=== PATIENT | female | born 1940 | race Caucasian/White ===

== ENCOUNTER 2018-08-14 10:33 | Observation (INO) ==
[2018-08-14] MEDS ORDERED: 0.9 % Sodium Chloride 1,000 ML IVC ONE (10:48)
--- NOTE | 2018-08-14 11:07 | Emergency Department Note ---
START Narrative - START START: Patient with history of a atriafibrillation presents from her primary care provider's office for evaluation of generalized weakness. Patient states that she went to see her primary care provider today for a follow-up regarding bilateral foot edema bilateral foot, ankle and knee pain. When she arrived there she was too weak to get out of her vehicle without assistance. Her primary care provider was concerned about this change in her overall well-being and sent her here for further evaluation. Patient denies any specific pain at this time, but states that she has had pain in her ankles and knees for years. She also complains of an occasional cough and generalized malaise for the past two weeks. Her EKG shows atrial fibrillation with no ST elevation or depression. Old EKG has been requested. Labs have been ordered. Case was discussed with the oncoming provider, Dr. Erasmo Bell. She will be taking over care of this patient.
[2018-08-14 11:37] LABS: Basophils # 0.1 K/mcL (0.0-0.2); Basophils % 0.4 %; Eosinophils # 0.1 K/mcL (0.0-0.6); Eosinophils % 0.4 %; Hematocrit 35.5 % (35.3-44.9); Hemoglobin 11.1 g/dL (11.5-15.4); Immature Granulocytes % 0.4 % (0-4); Lymphocytes # 2.1 K/mcL (0.6-4.6); Mean Corpuscular HGB Conc 31.3 g/dL (31.6-35.5); Mean Corpuscular Hemoglobin 27.2 pg (28.0-33.3); Mean Platelet Volume 10.6 fL (9.4-12.4); Monocytes # 0.9 K/mcL (0.0-1.3); Monocytes % 6.6 %; Neutrophils # 10.8 K/mcL (1.6-8.9); Platelet Count 362 K/mcL (140-400); Red Blood Count 4.08 M/mcL (3.82-4.97); Red Cell Distribution Width 14.6 % (11.5-14.5); Segmented Neutrophils % 77.2 %
[2018-08-14 11:53] LABS: Troponin I < 0.03 ng/mL (< 0.04)
[2018-08-14 12:06] LABS: Alanine Aminotransferase 27 Units/L (7-52); Albumin 3.8 g/dL (3.5-5.7); Alkaline Phosphatase 90 Units/L (34-104); Aspartate Amino Transferase 27 Units/L (13-39); BUN/Creatinine Ratio 15 (6-26); Bilirubin,Total 0.4 mg/dL (0.3-1.0); Blood Urea Nitrogen 22 mg/dL (8-23); Calcium 9.7 mg/dL (8.6-10.3); Carbon Dioxide 25 mEq/L (23-29); Chloride 102 mEq/L (98-107); Globulin 3.8 g/dL (2.4-3.5); Glucose 118 mg/dL (70-105); Osmolality,Calculated 292 (280-300); Sodium 139 mEq/L (136-145); Total Protein 7.6 g/dL (6.4-8.9); eGFR For Non-African Americans 36 (> 60)
[2018-08-14 12:19] LABS: INR 2.1
[2018-08-14 12:55] LABS: Bilirubin,Urine Negative (Negative); Blood,Urine Negative (Negative); Clarity,Urine Clear (Clear); Color,Urine Yellow (Yellow); Glucose,Urine (UA) Normal (Normal); Ketones,Urine Negative (Negative); Leukocyte Esterase,Urine Negative (Negative); Nitrite,Urine Positive (Negative); Protein,Urine Negative (Neg-Trace); Specific Gravity,Urine 1.023 (1.010-1.025); Urobilinogen,Urine Normal (Normal)
[2018-08-14 12:57] LABS: Bacteria,Urine Many per hpf (None-Few); Hyaline Casts,Urine None Seen per lpf (None-Few); RBC,Urine 0-3 per hpf (0-3); Squamous Epithelial Cell,Urine Many per lpf (None-Few); WBC,Urine 0-3 per hpf (0-3)
--- NOTE | 2018-08-14 13:20 | Emergency Department Note ---
Disposition Clinical Impression: Unable to ambulate, Generalized weakness UTI (urinary tract infection) Qualifiers: Urinary tract infection type: site unspecified Hematuria presence: without hematuria Qualified Code(s): N39.0 - Urinary tract infection, site not specified Disposition: Admitted As Inpatient Condition: Fair General Adult HPI - General Chief complaint: ED General Medical Stated complaint: Weakness Time Seen by Provider: 08/14/18 10:43 Source: patient, EMS Mode of arrival: EMS Limitations: no limitations Nursing Notes Reviewed: Yes Vital Signs Reviewed: Yes - History of Present Illness HPI Narrative: 77-year-old female with significant past medical history of chronic kidney disease and atrial fibrillation currently on Coumadin presenting to the emergency department with chief complaint of weakness. According to the patient she does have chronic low back pain. She was following up with her primary care physician today due to increased weakness in her bilateral extremities. They became concerned and told her to come to the emergency department. Patient states over the past few weeks she has had increasing pain in her bilateral lower extremities and increased pain in her left low back. This is causing her to be unable to ambulate. Patient denies any fevers, chest pain or shortness of breath. She does states she has had an increased productive cough over the past few weeks. Patient is normally able to ambulate with some help at home but now has been unable to get up to even use the restroom due to her weakness. Pain Scale: 3 - Related Data Home Medications Medication Instructions Recorded Confirmed Atorvastatin Calcium [Lipitor] 20 mg PO DAILY 08/14/18 08/14/18 Cholecalciferol (D-3) [Vitamin D] 1,000 unit PO DAILY 08/14/18 08/14/18 Diphenhydramine HCl [Ez Nite Sleep] 50 mg PO HS 08/14/18 08/14/18 Furosemide [Lasix] 40 mg PO DAILY 08/14/18 08/14/18 Irbesartan [Avapro] 150 mg PO DAILY 08/14/18 08/14/18 Metoprolol Tartrate [Lopressor] 50 mg PO BID 08/14/18 08/14/18 Multivitamin [One Daily 1 each PO DAILY 08/14/18 08/14/18 Multivitamin] Potassium Chloride [K-Tab ER] 10 meq PO DAILY 08/14/18 08/14/18 Sennosides/Docusate Sodium 2 tab PO QPM 08/14/18 08/14/18 [Senna-S Tablet] Warfarin [Coumadin] 2.5 mg PO DAILY 08/14/18 08/14/18 Allergies Allergy/AdvReac Type Severity Reaction Status Date / Time [place] Inhibitors Allergy Hypotension Verified 08/14/18 10:50 aspirin [ASA] Allergy See Verified 08/14/18 10:50 Comments methyldopa Allergy Hives Verified 08/14/18 10:50 Triamterene Allergy Chills Verified 08/14/18 10:50 amlodipine AdvReac Swelling Verified 08/14/18 10:50 of Lip/Tongue/Throat atenolol AdvReac Palpitation Verified 08/14/18 10:50 s cefdinir AdvReac Dizziness Verified 08/14/18 10:50 clarithromycin AdvReac Hives Verified 08/14/18 10:50 duloxetine AdvReac See Verified 08/14/18 10:50 Comments enalapril AdvReac Hypotension Verified 08/14/18 10:50 guaifenesin AdvReac Hives Verified 08/14/18 10:50 indapamide AdvReac Hives Verified 08/14/18 14:20 losartan AdvReac Itching Verified 08/14/18 10:50 nifedipine AdvReac Hives Verified 08/14/18 10:50 NSAIDS (Non-Steroidal AdvReac See Verified 08/14/18 14:20 Anti-Inflamma Comments pregabalin [From Lyrica] AdvReac See Verified 08/14/18 10:50 Comments tramadol AdvReac See Verified 08/14/18 10:50 Comments All systems ED: reviewed and negative except as stated. Constitutional: Reports: weakness. Denies: fever, chills Eyes: Reports: as per HPI ENT ED: Reports: as per HPI Cardiovascular: Denies: chest pain, palpitations, dyspnea on exertion Respiratory: Reports: cough, sputum production. Denies: dyspnea, wheezes Gastrointestinal: Reports: as per HPI Genitourinary: Reports: as per HPI Musculoskeletal: Reports: as per HPI Integumentary: Reports: as per HPI Neurological: Reports: weakness. Denies: numbness, paresthesias Psychiatric: Reports: as per HPI Endocrine: Reports: as per HPI Hematological/Lymphatic: Reports: as per HPI Allergic/Immunologic: Reports: as per HPI Past Medical History - Past Medical History Attestation: Yes The following information was validated with the patient. Medical history: Reports: atrial fibrillation, hyperlipidemia, hypertension Psychiatric history: Reports: no psych history - Social History Smoking Status: Never smoker Smokeless Tobacco Status: No Alcohol use: Reports: none Drug use: Reports: none Physical Exam - General Limitations: no limitations General appearance: alert, in no apparent distress - Head Head exam: atraumatic, normocephalic, normal inspection - Eye Eye exam: Present: normal appearance. Absent: scleral icterus, conjunctival injection - ENT ENT exam: mucous membranes dry - Neck Neck exam: Present: normal inspection, full ROM. Absent: tenderness, meningismus - Chest Chest inspection: Present: normal inspection, symmetric chest wall rise. Absent : tenderness, rash - Respiratory Respiratory exam: Present: normal lung sounds bilaterally. Absent: respiratory distress, wheezes - Cardiovascular Cardiovascular exam: Present: regular rate, irregular rhythm, normal heart sounds - Abdominal Exam Abdominal exam: Present: soft. Absent: distention, guarding, rebound - Extremities Exam Extremities exam: Present: full ROM - Neurological Exam Neurological exam: Present: alert, oriented X3 - Psychiatric Psychiatric exam: Present: normal affect, normal mood - Skin Skin exam: Present: warm, intact Course Course Narrative: 77-year-old female presenting to the emergency department with chief complaint of weakness. On exam patient is able to move all 4 extremities without difficulty. She is alert and oriented 3 with stable vital signs. Her physical exam shows tenderness to the left SI joint, and irregular heart rate but otherwise benign. Patient does state over the past couple of days she has had a few loose stools but there has been no blood in this. Due to patient's new onset weakness we will work her up with basic laboratory analysis, troponin , EKG, CT of the abdomen and pelvis along with a urinalysis. Disposition most likely admission due to patient's inability to ambulate but pending results. Patient agrees with this plan. at bedside. - Reevaluation(s) Reevaluation #1: Patient's laboratory analysis shows leukocytosis any urinary tract infection. This is the most likely cause of the patient's weakness. Patient remains alert and oriented 3 in room with stable vital signs. We will start the patient on Rocephin and plan to admit her for further IV antibiotics. Patient agrees with this plan. I spoke with the hospitalist on-call who agrees to accept the patient at this time. Vital Signs Temperature 98.9 F 08/14/18 10:37 Pulse Rate 63 08/14/18 10:37 Respiratory Rate 18 08/14/18 10:37 Blood Pressure 161/98 08/14/18 10:37 O2 Sat by Pulse Oximetry 96 08/14/18 10:37 Temperature 98.9 F 08/14/18 10:37 Pulse Rate 100 08/14/18 14:05 Respiratory Rate 18 08/14/18 15:28 Blood Pressure 162/76 08/14/18 15:28 O2 Sat by Pulse Oximetry 97 08/14/18 16:30 Oxygen Delivery Oxygen Delivery Room Air Medical Decision Making - Lab Data Result diagrams: 08/14/18 10:49 08/14/18 10:49 Lab Results 08/14/18 08/14/18 08/14/18 Range/Units 10:49 10:49 11:16 WBC 14.0 H (4.3-11.1) K/mcL RBC 4.08 (3.82-4.97) M/mcL Hgb 11.1 L (11.5-15.4) g/dL Hct 35.5 (35.3-44.9) % MCV 87.0 (83.0-100.0) fL MCH 27.2 L (28.0-33.3) pg MCHC 31.3 L (31.6-35.5) g/dL RDW 14.6 H (11.5-14.5) % Plt Count 362 (140-400) K/mcL MPV 10.6 (9.4-12.4) fL Immature Gran % 0.4 (0-4) % Seg Neutrophils % 77.2 % Lymphocytes % 15.0 % Monocytes % 6.6 % Eosinophils % 0.4 % Basophils % 0.4 % Neutrophils # 10.8 H (1.6-8.9) K/mcL Lymphocytes # 2.1 (0.6-4.6) K/mcL Monocytes # 0.9 (0.0-1.3) K/mcL Eosinophils # 0.1 (0.0-0.6) K/mcL Basophils # 0.1 (0.0-0.2) K/mcL PT 24.0 H (9.4-12.1) Seconds INR 2.1 Sodium 139 (136-145) mEq/L Potassium 4.0 (3.5-5.1) mEq/L Chloride 102 (98-107) mEq/L Carbon Dioxide 25 (23-29) mEq/L BUN 22 (8-23) mg/dL Creatinine 1.42 H (0.60-1.20) mg/dL Est GFR ( Amer) 43 L (> 60) Est GFR (Non-Af Amer) 36 L (> 60) BUN/Creatinine Ratio 15 (6-26) Glucose 118 H (70-105) mg/dL Calculated Osmolality 292 (280-300) Calcium 9.7 (8.6-10.3) mg/dL Iron 20 L (50-170) mcg/dL % Saturation 8 L (15-50) % Transferrin 171 L (203-362) mg/dL Total Bilirubin 0.4 (0.3-1.0) mg/dL AST 27 (13-39) Units/L ALT 27 (7-52) Units/L Alkaline Phosphatase 90 (34-104) Units/L Troponin I < 0.03 (< 0.04) ng/mL Serum Total Protein 7.6 (6.4-8.9) g/dL Albumin 3.8 (3.5-5.7) g/dL Globulin 3.8 H (2.4-3.5) g/dL Albumin/Globulin Ratio 1.0 L (1.1-2.2) Urine Color (Yellow) Urine Clarity (Clear) Urine pH (5.0-8.0) pH Units Ur Specific [place] (1.010-1.025) Urine Protein (Neg-Trace) mg/dL Urine Glucose (UA) (Normal) mg/dL Urine Ketones (Negative) mg/dL Urine Blood (Negative) Urine Nitrite (Negative) Urine Bilirubin (Negative) Urine Urobilinogen (Normal) mg/dL Ur Leukocyte Esterase (Negative) Urine Microscopic RBC (0-3) per hpf Urine Microscopic WBC (0-3) per hpf Ur Squamous Epith Cells (None-Few) per lpf Urine Bacteria (None-Few) per hpf Hyaline Casts (None-Few) per lpf Ur Culture Indicated? (NO) 08/14/18 Range/Units 12:42 WBC (4.3-11.1) K/mcL RBC (3.82-4.97) M/mcL Hgb (11.5-15.4) g/dL Hct (35.3-44.9) % MCV (83.0-100.0) fL MCH (28.0-33.3) pg MCHC (31.6-35.5) g/dL RDW (11.5-14.5) % Plt Count (140-400) K/mcL MPV (9.4-12.4) fL Immature Gran % (0-4) % Seg Neutrophils % % Lymphocytes % % Monocytes % % Eosinophils % % Basophils % % Neutrophils # (1.6-8.9) K/mcL Lymphocytes # (0.6-4.6) K/mcL Monocytes # (0.0-1.3) K/mcL Eosinophils # (0.0-0.6) K/mcL Basophils # (0.0-0.2) K/mcL PT (9.4-12.1) Seconds INR Sodium (136-145) mEq/L Potassium (3.5-5.1) mEq/L Chloride (98-107) mEq/L Carbon Dioxide (23-29) mEq/L BUN (8-23) mg/dL Creatinine (0.60-1.20) mg/dL Est GFR ( Amer) (> 60) Est GFR (Non-Af Amer) (> 60) BUN/Creatinine Ratio (6-26) Glucose (70-105) mg/dL Calculated Osmolality (280-300) Calcium (8.6-10.3) mg/dL Iron (50-170) mcg/dL % Saturation (15-50) % Transferrin (203-362) mg/dL Total Bilirubin (0.3-1.0) mg/dL AST (13-39) Units/L ALT (7-52) Units/L Alkaline Phosphatase (34-104) Units/L Troponin I (< 0.04) ng/mL Serum Total Protein (6.4-8.9) g/dL Albumin (3.5-5.7) g/dL Globulin (2.4-3.5) g/dL Albumin/Globulin Ratio (1.1-2.2) Urine Color Yellow (Yellow) Urine Clarity Clear (Clear) Urine pH 5.0 (5.0-8.0) pH Units Ur Specific [place] 1.023 (1.010-1.025) Urine Protein Negative (Neg-Trace) mg/dL Urine Glucose (UA) Normal (Normal) mg/dL Urine Ketones Negative (Negative) mg/dL Urine Blood Negative (Negative) Urine Nitrite Positive A (Negative) Urine Bilirubin Negative (Negative) Urine Urobilinogen Normal (Normal) mg/dL Ur Leukocyte Esterase Negative (Negative) Urine Microscopic RBC 0-3 (0-3) per hpf Urine Microscopic WBC 0-3 (0-3) per hpf Ur Squamous Epith Cells Many H (None-Few) per lpf Urine Bacteria Many H (None-Few) per hpf Hyaline Casts None Seen (None-Few) per lpf Ur Culture Indicated? NO. A (NO) - EKG Data EKG #1 EKG attestation: Yes I reviewed and interpreted this EKG. EKG results narrative: Atrial fibrillation. 101 bpm. QRS 98 QTC 453. No sign of acute ST segment elevation or ischemia. Attestation Statement - Attestation Attestation: I examined this patient and my medical decision-making was reviewed with the Resident Physician, Dr. Cuevas. I agree with the documented findings, disposition and treatment plan as described except to the extent set forth below. Patient is a 69-year-old white female with a history of paroxysmal A. fib, hyperlipidemia, chronic back pain who presents to the emergency department after being sent here by her primary care physician for generalized weakness. Apparently her family physician had actually physically help her out of her vehicle to get into the office for assessment today and normally she is fully ambulatory without assistance. Patient states that over the past few days she is just been getting gradually more weak and has noticed with less activity she has had an exacerbation of her SI joint pain left greater than right. She denies any loss of consciousness, no falls or trauma. Patient denies any fevers or chills, no chest pain pressure or heaviness, no diaphoresis. Patient denies any shortness of breath and no urinary symptoms. It was commented on in her chart that she had had a few episodes of diarrhea and some urinary incontinence associated with coughing. When speaking with the patient she states that she had some fast food chili a few days ago and that she is been having occasional diffuse abdominal cramping associated with a total of 3 loose bowel movements in the last 3-4 days. Patient denies any current abdominal pain , no blood per rectum. Patient denies any focal weakness or numbness no dizziness or vertigo or visual changes or speech changes. I agree with patient's physical exam findings as documented. Vital signs are stable. Patient's EKG shows A. fib, rate controlled without acute ischemia. Patient underwent lab evaluation, was straight cathetered for urine, and underwent CT abdomen and pelvis as well as L-spine. Patient with urinary tract infection, we will start IV antibiotics. Patient's been hemodynamically stable. CT abdomen and pelvis was unremarkable for any intra-abdominal pathology. Patient with a mild elevation in her serum creatinine. Patient received IV hydration in the emergency department IV antibiotics and is having difficulty in relating due to her generalized weakness. We will admit the patient for observation to the hospitalist service for further evaluation and management.
[2018-08-14] MEDS ORDERED: cefTRIAXone 1,000 MG in Water for inj. (sterile) 20 ML 10 ML IVP ONE (13:35)
[2018-08-14] MEDS ORDERED: Naloxone 0.4 MG/ML INJ IVP PRN (16:10)
[2018-08-14] MEDS ORDERED: Acetaminophen 325 MG TABLET PO PRN (16:10)
--- NOTE | 2018-08-14 16:30 | Internal Med History&Physical ---
<GoldmonagregKamaljit bradshaw - Last Filed: 08/14/18 17:22> Date of Encounter: 08/14/18 Time of Encounter: 15:30 Internal Medicine - H&P: HPI Chief complaint: Weakness/Inability to Ambulate Admitted From: Emergency Dept Plans for Post Hospital Care: Home History of present illness: Ms. Irene is a 77 year old female w/PMH of atrial fibrillation, HTN, HLD, and chronic back pain d/t previous back surgery presents from the ED w/CC of generalized weakness, inability to ambulate, and left flank pain. Pt. reports weakness and difficulty w/ambulation has been worsening over the past 5 weeks and the left flank pain for the past several days. Pt. reports no alleviating or aggravating factors. States that she was able to use a walker previously but now must use a wheelchair. Pt. reports numbness and tingling in bilateral LEs and that the neuropathy is d/t previous back surgery but denies recent illness, fever, chills, nausea, vomiting, headache, changes in vision, unusual bleeding, chest pain, shortness of breath, abdominal pain, diarrhea, constipation, dizziness, lightheadedness, pre-syncope, or syncope. Past Med Surg Social Fam HX - Past Medical History Source: patient, old records reviewed, obtained from family Medical history: atrial fibrillation, hyperlipidemia, hypertension Additional medical history: Neuralgia. Degenerative lumbar spinal stenosis. Osteoarthritis of spine Psychiatric history: no psych history - Past Surgical History Additional surgical history: back. heel spurs - Social History Smoking Status: Never smoker Smokeless Tobacco Status: No Alcohol use: none Drug use: none Current living situation: Home, With Family Activity Level: Wheelchair bound Recent Out of Country Travel Within the Last 8 Weeks: No Exposure or Possible Exposure to Illness During Travel: No - Family History Father Race: Family Member Ethnicity: Non- Living Status: Age at : 84 Cause of : Colon cancer Hx Family Cardiac Disorders: Yes (CAD) Hx Family Cancer: Yes (Colon) Mother Race: Family Member Ethnicity: Non- Living Status: Age at : 78 Cause of : Alzheimer's disease Hx Family Endocrine Disorder: Yes (DM) Hx Family Neurologic Disorders: Yes (Alzheimer's disease) Sister Race: Family Member Ethnicity: Non- Living Status: Age at : 69 Cause of : Colon cancer Hx Family Cancer: Yes (Colon) Internal Medicine - H&P: Meds Atorvastatin Calcium [Lipitor] 20 mg PO DAILY 08/14/18 [History] Cholecalciferol (D-3) [Vitamin D] 1,000 unit PO DAILY 08/14/18 [History] Diphenhydramine HCl [Ez Nite Sleep] 50 mg PO HS 08/14/18 [History] Furosemide [Lasix] 40 mg PO DAILY 08/14/18 [History] Irbesartan [Avapro] 150 mg PO DAILY 08/14/18 [History] Metoprolol Tartrate [Lopressor] 50 mg PO BID 08/14/18 [History] Multivitamin [One Daily Multivitamin] 1 each PO DAILY 08/14/18 [History] Potassium Chloride [K-Tab ER] 10 meq PO DAILY 08/14/18 [History] Sennosides/Docusate Sodium [Senna-S Tablet] 2 tab PO QPM 08/14/18 [History] Warfarin [Coumadin] 2.5 mg PO DAILY 08/14/18 [History] 3 Allergy/AdvReac Type Severity Reaction Status Date / Time [place] Inhibitors Allergy Hypotension Verified 08/14/18 10:50 aspirin [ASA] Allergy See Verified 08/14/18 10:50 Comments methyldopa Allergy Hives Verified 08/14/18 10:50 Triamterene Allergy Chills Verified 08/14/18 10:50 amlodipine AdvReac Swelling Verified 08/14/18 10:50 of Lip/Tongue/Throat atenolol AdvReac Palpitation Verified 08/14/18 10:50 s cefdinir AdvReac Dizziness Verified 08/14/18 10:50 clarithromycin AdvReac Hives Verified 08/14/18 10:50 duloxetine AdvReac See Verified 08/14/18 10:50 Comments enalapril AdvReac Hypotension Verified 08/14/18 10:50 guaifenesin AdvReac Hives Verified 08/14/18 10:50 indapamide AdvReac Hives Verified 08/14/18 14:20 losartan AdvReac Itching Verified 08/14/18 10:50 nifedipine AdvReac Hives Verified 08/14/18 10:50 NSAIDS (Non-Steroidal AdvReac See Verified 08/14/18 14:20 Anti-Inflamma Comments pregabalin [From Lyrica] AdvReac See Verified 08/14/18 10:50 Comments tramadol AdvReac See Verified 08/14/18 10:50 Comments All Systems PM: A 10-system review of systems was performed and is negative for pertinent findings except as documented above in the HPI. - Constitutional Constitutional: as per HPI, fatigue, weakness (Bilateral LEs), no chills, no fever(s), no night sweats - EENT Eyes: no change in vision, no discharge, no pain, no photophobia Ears: no ear discharge, no ear pain, no tinnitus Nose, mouth and throat: no dysphagia, no nasal discharge, no neck pain, no sore throat - Breasts Breasts: as per HPI - Cardiovascular Cardiovascular ROS IM: no chest pain, no diaphoresis, no dyspnea, no lightheadedness, no palpitations, no syncope - Respiratory Respiratory: no cough, no dyspnea, no wheezing, no excessive phlegm production - Gastrointestinal Gastrointestinal: no abdominal pain, no diarrhea, no hematemesis, no hematochezia, no melena, no nausea, no vomiting - Genitourinary Genitourinary: as per HPI, flank pain (Left), no change in urinary stream, no dysuria, no hematuria Menstruation: as per HPI - Musculoskeletal Musculoskeletal ROS IM: as per HPI, back pain, muscle weakness, numbness ( Bilateral LEs), tingling (Bilateral LEs) - Integumentary Integumentary IM: no rash, no unusual bruising - Neurological Neurological ROS: as per HPI, numbness, tingling, weakness, no confusion, no convulsions, no focal weakness, no tremor(s) - Psychiatric Psychiatric: as per HPI - Endocrine Endocrine IM: as per HPI - Hematologic/Lymphatic Hematologic/Lymphatic: no easy bruising - Allergic/Immunologic Allergic/Immunologic: as per HPI - Constitutional Vitals: Temp Pulse Resp BP Pulse Ox 98.9 F 100 18 162/76 99 08/14/18 10:37 08/14/18 14:05 08/14/18 15:28 08/14/18 15:28 08/14/18 14:05 General appearance: Present: cooperative, mild distress (Back pain and weakness) , A&O X 3, pleasant, obese, answers questions appropriately Exam: Patient examined at bedside. Patient reports generalized weakness and neuropathy in bilateral LEs. States she has worsening inability to ambulate for the past 5 weeks and now uses wheelchair and set of walker. Also reports left flank pain the past several days. Denies any other complaints at this time. Patient currently meeting sepsis criteria with WBC of 14.0 and HR of 100. UTI most likely source of infection. VS: 98.9F temp, HR 100, RR 18, BP 156/ 80, SpO2 99% on RA. - Head Head exam: Present: atraumatic, normocephalic - Eye Eye exam: Present: PERRL, conjuntiva pink, sclera anicteric Pupils: Present: PERRL - ENT ENT exam: Present: normal exam - Neck Neck exam general surgery: Present: normal inspection, supple, trachea midline. Absent: lymphadenopathy - Respiratory Respiratory exam: Present: CTAB. Absent: accessory muscle use, rales, rhonchi, wheezes - Cardiovascular Cardiovascular exam: Present: RRR, +S1, +S2. Absent: diastolic murmur, gallop, rubs, systolic murmur - GI/Abdominal GI/Abdominal exam: Present: normal bowel sounds, soft, no peritoneal signs. Absent: distended, tenderness - Rectal Rectal exam: Present: deferred - Additional comments: exam deferred. - Extremities Exam Extremities exam: Present: pedal edema (1+ bilaterally), warm, radial pulses palpable and symmetrical. Absent: calf tenderness, cyanotic - Back Exam Back exam: Present: normal inspection - Neurological Exam Neurological exam: Present: alert, CN II-XII intact, oriented X3, no focal deficits. Absent: pronater drift, facial droop, speech deficit - Psychiatric Psychiatric exam: Present: normal affect, normal mood - Skin Skin exam: Present: dry, intact Internal Med - H&P Results - Labs CBC & Chem 7: 08/14/18 10:49 08/14/18 10:49 - Diagnostic Studies Chest x-ray Additional comments: Impressions Chest X-Ray 08/14/18 10:49 IMPRESSION: 1. No active pulmonary disease. 2. Cardiomegaly without overt failure. D/ / Benjamin Guzmán MD / Benjamin Guzmán MD Interpreting Provider: Benjamin Guzmán MD CT scan - abdomen Additional comments: Impressions Abdomen/Pelvis CT 08/14/18 12:19 IMPRESSION: 1. Normal appendix with no evidence of acute appendicitis. Diverticulosis but no acute diverticulitis. No other acute bowel abnormality. 2. Diffuse chronic granulomatous disease in the liver and spleen. 3. Minimal right nephrolithiasis but no obstructive uropathy. D/ / 08/14/2018 13:37:06 Meg Hernandez MD / [facility] Interpreting Provider: Meg Hernandez MD Other Images Additional comments: Impressions Lumbar Spine CT 08/14/18 12:20 IMPRESSION: 1. Sequelae of multilevel laminectomies and posterior lumbar fusion from L2-L5 without adverse features of the orthopedic hardware identified. 2. Multilevel degenerative changes of the lumbar spine as described above but most pronounced at L1-2 where there is a calcified central disc extrusion demonstrating superior migration resulting in moderate spinal canal stenosis. Mild right neural foraminal narrowing is present as well. 3. Multilevel neural foraminal narrowing throughout the lumbar spine most severe on the left at L5-S1. D/ / 08/14/2018 13:40:02 Talib Payne MD [facility] Inter[facility] Provider: Talib Payne MD - Assessment and plan (1) Generalized weakness Current Visit: Yes Status: Acute Assessment and plan: Acute and generalized weakness that has worsened over the past 5 weeks. Pt. reports that she was able to use a walker but now uses a wheelchair. 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 Pt. also states that she has no real appetite for the past few weeks as well. Denies N/V , but states that she is simply not hungry. Falls/safety precautions. Up with assist only. Nutrition consult ordered for PO supplementation. PT/OT consults ordered to assess for rehabilitation needs for post-discharge planning. Pt. discussed w/Dr. Salazar who agrees w/plan of care. Pt. is high risk for further morbidity and complications d/t current sepsis criteria, UTI requiring IVPB abx , worsening generalized weakness and inability to ambulate, and decreased appetite/intake. Observation. (2) Unable to ambulate Current Visit: Yes Status: Acute Assessment and plan: Acute inability to ambulate which has worsened over the past 5 weeks. Pt. reports being able to use walker safely but is now using a wheelchair. States that she has chronic neuropathy in bilateral LEs d/t previous back surgery. Also states that her feet feel like lead when she tries to walk. Falls/safety precautions and up with assist only. Bedside commode w/assist. PT/OT consults ordered to assess for rehabilitation needs. (3) UTI (urinary tract infection) Current Visit: Yes Status: Acute Assessment and plan: Acute UTI. U/A shows positive nitrates and many urine bacteria. Pt. reports left flank pain. Current WBC 14.0. IVPB ceftriaxone administered in the ED. Will continue 2,000 mg daily IVPB and monitor I&O and f/u labs. Pt. does not currently meet sepsis criteria but will be monitored closely for signs of increasing infection/sepsis. Qualifiers: Urinary tract infection type: site unspecified Hematuria presence: without hematuria Qualified Code(s): N39.0 - Urinary tract infection, site not specified (4) Drop in hemoglobin Current Visit: Yes Status: Acute Assessment and plan: Acute on chronic drop in Hgb. Currently 11.1. Pt. denies unusual bleeding. Will monitor H/H in f/u labs. B12, folate, and iron profile ordered due to current drop in Hgb and generalized weakness. (5) Atrial fibrillation Current Visit: Yes Status: Chronic Assessment and plan: Hx of chronic paroxysmal Afib. EKG today shows Coumadin w/Pharmacy dosing. Continuous cardiac telemetry. Qualifiers: Atrial fibrillation type: paroxysmal Qualified Code(s): I48.0 - Paroxysmal atrial fibrillation (6) HTN (hypertension) Current Visit: Yes Status: Chronic Assessment and plan: Hx of chronic HTN. Monitor pt. and VS. Continue pts. Lopressor and Avapro. Qualifiers: Hypertension type: essential hypertension Qualified Code(s): I10 - Essential (primary) hypertension (7) HLD (hyperlipidemia) Current Visit: Yes Status: Chronic Assessment and plan: Hx of chronic HLD. Lipid panel in a.m. labs. Continue pts. Lipitor. Qualifiers: Hyperlipidemia type: pure hypercholesterolemia Qualified Code(s): E78.00 - Pure hypercholesterolemia, unspecified; E78.0 - Pure hypercholesterolemia (8) CKD (chronic kidney disease) stage 3, GFR 30-59 ml/min Current Visit: Yes Status: Chronic Assessment and plan: Hx of CKD. GFR currently 36 and creatinine 1.42. Will use IV fluids judiciously if warranted and avoid nephrotoxins. Monitor I&O and f/u labs. (9) DVT prophylaxis Current Visit: Yes Status: Acute Assessment and plan: Continue patient's Coumadin with pharmacy dosing for DVT prophylaxis. Monitor patient for signs of bleeding. (10) Sepsis Current Visit: Yes Status: Acute Assessment and plan: Acute sepsis criteria w/WBC of 14.0 and HR of 100. UTI most likely source of infection. Blood cultures x2 ordered. Lactic acid ordered. IVPB ceftriaxone started in ED and to be continued @ 2,000 mg daily for infection coverage. Pt. received 1L bolus in ED. Pt. and f/u labs to be monitored closely for signs of increasing infection/sepsis. Qualifiers: Sepsis type: sepsis due to unspecified organism Qualified Code(s): A41.9 - Sepsis, unspecified organism - Time Spent With Patient Total time spent is greater than 50% in coordination of care (as documented) at patient's floor/unit and/or counseling patient: Greater than 35 minutes <Celestino Salazar - Last Filed: 08/14/18 17:55> Date of Encounter: 08/14/18 Internal Medicine - H&P: HPI History of present illness: Ms. Irene is a 77 year old female All Systems PM: A 10-system review of systems was performed and is negative for pertinent findings except as documented above in the HPI. - Constitutional Vitals: Temp Pulse Resp BP Pulse Ox 98.9 F 100 18 162/76 97 08/14/18 10:37 08/14/18 14:05 08/14/18 15:28 08/14/18 15:28 08/14/18 16:30 Internal Med - H&P Results - Labs CBC & Chem 7: 08/14/18 10:49 08/14/18 10:49 - Assessment and plan (1) Generalized weakness Current Visit: Yes Status: Acute (2) Unable to ambulate Current Visit: Yes Status: Acute (3) UTI (urinary tract infection) Current Visit: Yes Status: Acute Qualifiers: Urinary tract infection type: site unspecified Hematuria presence: without hematuria Qualified Code(s): N39.0 - Urinary tract infection, site not specified (4) Atrial fibrillation Current Visit: Yes Status: Chronic Qualifiers: Atrial fibrillation type: paroxysmal Qualified Code(s): I48.0 - Paroxysmal atrial fibrillation (5) HTN (hypertension) Current Visit: Yes Status: Chronic Qualifiers: Hypertension type: essential hypertension Qualified Code(s): I10 - Essential (primary) hypertension (6) HLD (hyperlipidemia) Current Visit: Yes Status: Chronic Qualifiers: Hyperlipidemia type: pure hypercholesterolemia Qualified Code(s): E78.00 - Pure hypercholesterolemia, unspecified; E78.0 - Pure hypercholesterolemia (7) DVT prophylaxis Current Visit: Yes Status: Acute (8) CKD (chronic kidney disease) stage 3, GFR 30-59 ml/min Current Visit: Yes Status: Chronic (9) Drop in hemoglobin Current Visit: Yes Status: Acute (10) Sepsis Current Visit: Yes Status: Acute Qualifiers: Sepsis type: sepsis due to unspecified organism Qualified Code(s): A41.9 - Sepsis, unspecified organism - Time Spent With Patient Total time spent is greater than 50% in coordination of care (as documented) at patient's floor/unit and/or counseling patient: - Attending Attestation I have seen and examined the patient with BOTTOMING ROOM SUPERVISOR Avril Helm and agree with his/her assessment and plan. 77-year-old female with history of atrial fibrillation and previous lumbar surgery is admitted for generalized weakness and inability to ambulate. Afebrile, hemodynamically stable, mild left flank tenderness on exam. Investigation consistent with urinary tract infection. Given her severe ambulatory dysfunction, will admit for inpatient treatment for IV Abx and PT/OT. Celestino Salazar MD
[2018-08-14 17:15] LABS: % Iron Saturation 8 % (15-50); Iron 20 mcg/dL (50-170); Transferrin 171 mg/dL (203-362)
[2018-08-14] MEDS ORDERED: *HR* Warfarin 2.5 MG TABLET PO ONE (18:00)
[2018-08-14] MEDS ORDERED: Warfarin perPT PO PRN (18:00)
[2018-08-14] MEDS: Sennosides/Docusate Sodium TABLET PO SCH (18:57)
[2018-08-14] MEDS: *HR* HYDROcodone/Acet 5/325 mg TABLET PO PRN (21:10)
[2018-08-15 00:55] LABS: Basophils # 0.1 K/mcL (0.0-0.2); Basophils % 0.4 %; Eosinophils # 0.1 K/mcL (0.0-0.6); Eosinophils % 0.5 %; Immature Granulocytes % 0.5 % (0-4); Lymphocytes # 1.8 K/mcL (0.6-4.6); Lymphocytes % 12.9 %; Mean Corpuscular HGB Conc 30.3 g/dL (31.6-35.5); Mean Corpuscular Volume 89.2 fL (83.0-100.0); Mean Platelet Volume 10.7 fL (9.4-12.4); Monocytes # 0.9 K/mcL (0.0-1.3); Monocytes % 6.7 %; Platelet Count 308 K/mcL (140-400); Red Cell Distribution Width 14.3 % (11.5-14.5)
[2018-08-15 00:59] LABS: INR 1.9
[2018-08-15 01:01] LABS: Activated Partial Thrombo Time 37.6 Seconds (26.0-36.0)
[2018-08-15 01:16] LABS: Albumin 3.3 g/dL (3.5-5.7); Bilirubin,Total 0.3 mg/dL (0.3-1.0); Calcium 8.9 mg/dL (8.6-10.3); Chol/HDL Ratio 2.6 (0-4.9); Globulin 3.2 g/dL (2.4-3.5); Potassium 4.1 mEq/L (3.5-5.1); Total Protein 6.5 g/dL (6.4-8.9)
[2018-08-15 07:24] LABS: Estimated Average Glucose 131 mg/dl; Hemoglobin A1C 6.2 %
[2018-08-15] MEDS: Cholecalciferol (D-3) 1,000 UNIT TABLET PO SCH (10:24)
[2018-08-15] MEDS: cefTRIAXone 2,000 MG in 0.9 % Sodium Chloride Mini Bag 100 ML IVPB SCH (10:24)
[2018-08-15] MEDS: Multivit/Ca/Min/Fe/FA 1 TAB TABLET PO SCH (10:25)
[2018-08-15] MEDS: Furosemide 40 MG TABLET PO SCH (10:25)
[2018-08-15] MEDS: IRBESARTAN 150 MG PO SCH (10:28)
--- NOTE | 2018-08-15 10:43 | Internal Med Progress Note ---
Hospitalist Progress Note - Encounter Date of Encounter: 08/15/18 Time of Encounter: 10:43 - Subjective Interval History: Patient was seen and examined at bedside -She has multiple complaints, mostly that she has been experiencing decreased mobility and pain in lower extremities. Denies any CP or SOB. She does complain of lower extremity pain - numbness and increased weakness - Exam Vitals: Temp Pulse Resp BP Pulse Ox 98.1 F 102 18 121/74 96 08/15/18 06:20 08/15/18 06:20 08/15/18 06:20 08/15/18 06:20 08/15/18 06:20 Exam: General appearance: Present: cooperative, mild distress (Back pain and weakness) , A&O X 3, pleasant, obese, answers questions appropriately Exam: - Head Head exam: Present: atraumatic, normocephalic - Eye Eye exam: Present: PERRL, conjuntiva pink, sclera anicteric Pupils: Present: PERRL - ENT ENT exam: Present: normal exam - Neck Neck exam general surgery: Present: normal inspection, supple, trachea midline. Absent: lymphadenopathy - Respiratory Respiratory exam: Present: CTAB. Absent: accessory muscle use, rales, rhonchi, wheezes - Cardiovascular Cardiovascular exam: Present: RRR, +S1, +S2. Absent: diastolic murmur, gallop, rubs, systolic murmur - GI/Abdominal GI/Abdominal exam: Present: normal bowel sounds, soft, no peritoneal signs. Absent: distended, tenderness - Rectal Rectal exam: Present: deferred - Additional comments: exam deferred. - Extremities Exam Extremities exam: Present: pedal edema (1+ bilaterally), warm, radial pulses palpable and symmetrical. Absent: calf tenderness, cyanotic - Back Exam Back exam: Present: normal inspection - Neurological Exam Neurological exam: Present: alert, CN II-XII intact, oriented X3, has difficulty raising legs Absent: pronater drift, facial droop, speech deficit - Psychiatric Psychiatric exam: Present: normal affect, normal mood - Assessment and Plan (1) Generalized weakness Current Visit: Yes Status: Acute Assessment and Plan: Acute and generalized weakness that has worsened over the past 5 weeks. Pt. reports that she was able to use a walker but now uses a wheelchair. 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 Pt. also states that she has no real appetite for the past few weeks as well. Denies N/V , but states that she is simply not hungry. Falls/safety precautions. Up with assist only. Nutrition consult ordered for PO supplementation. PT/OT consults ordered to assess for rehabilitation needs for post-discharge planning. Pt. discussed w/Dr. Salazar who agrees w/plan of care. Pt. is high risk for further morbidity and complications d/t current sepsis criteria, UTI requiring IVPB abx , worsening generalized weakness and inability to ambulate, and decreased appetite/intake. Observation. 08/15 Cont to complain of lower extremity weakness she is unable to lift legs without pain- she states that she can normally transfer herself from wheel chair however she is unable to support herself. I suspect that her foot pain might be rt Gout she does have some slight redness to L reat toe and it is tender to touch - she has been treated for gout in the past will check uric acid PT/OT consult cnt with ATB treatment for UTI (2) Unable to ambulate Current Visit: Yes Status: Acute Assessment and Plan: Acute inability to ambulate which has worsened over the past 5 weeks. Pt. reports being able to use walker safely but is now using a wheelchair. States that she has chronic neuropathy in bilateral LEs d/t previous back surgery. Also states that her feet feel like lead when she tries to walk. Falls/safety precautions and up with assist only. Bedside commode w/assist. PT/OT consults ordered to assess for rehabilitation needs. 08/15 Hx of multiple back surgery - last surgery at [facility] approx 5-7 yrs ago ? states that she normally uses a wheelchair and can transfer herself however lately she is unable to transfer herself- complains of lower extremity pain CT of lumbar spine IMPRESSION: 1. Sequelae of multilevel laminectomies and posterior lumbar fusion from L2-L5 without adverse features of the orthopedic hardware identified. 2. Multilevel degenerative changes of the lumbar spine as described above but most pronounced at L1-2 where there is a calcified central disc extrusion demonstrating superior migration resulting in moderate spinal canal stenosis. Mild right neural foraminal narrowing is present as well. 3. Multilevel neural foraminal narrowing throughout the lumbar spine most severe on the left at L5-S1. -PT/OT consult -Bedside commode - suspect gout- obtain uric acid (3) UTI (urinary tract infection) Current Visit: Yes Status: Acute Assessment and Plan: Acute UTI. U/A shows positive nitrates and many urine bacteria. Pt. reports left flank pain. Current WBC 14.0. IVPB ceftriaxone administered in the ED. Will continue 2,000 mg daily IVPB and monitor I&O and f/u labs. Pt. does not currently meet sepsis criteria but will be monitored closely for signs of increasing infection/sepsis. 08/15 cont with ATB (4) Atrial fibrillation Current Visit: Yes Status: Chronic Assessment and Plan: Hx of chronic paroxysmal Afib. EKG today shows Coumadin w/Pharmacy dosing. Continuous cardiac telemetry. 08/15 Had an episode of tachycardia with rate 120- she had not had am meds- improved after am metoprolol cont with BB and coumadin (5) HTN (hypertension) Current Visit: Yes Status: Chronic Assessment and Plan: Hx of chronic HTN. Monitor pt. and VS. Continue pts. Lopressor and Avapro. (6) HLD (hyperlipidemia) Current Visit: Yes Status: Chronic Assessment and Plan: Hx of chronic HLD. Lipid panel in a.m. labs. Continue pts. Lipitor. (7) DVT prophylaxis Current Visit: Yes Status: Acute Assessment and Plan: Continue patient's Coumadin with pharmacy dosing for DVT prophylaxis. Monitor patient for signs of bleeding. (8) CKD (chronic kidney disease) stage 3, GFR 30-59 ml/min Current Visit: Yes Status: Chronic Assessment and Plan: Hx of CKD. GFR currently 36 and creatinine 1.42. Will use IV fluids judiciously if warranted and avoid nephrotoxins. Monitor I&O and f/u labs. 08/15 Patient states that she has not seen vp account director in a year. She states vp account director out of [place]- unknown baseline- currently appears to be stage 3 - creatinine 1.41 GFR 36 monitor I/O daily weights avoid nephrotoxins (9) Drop in hemoglobin Current Visit: Yes Status: Acute Assessment and Plan: Acute on chronic drop in Hgb. Currently 11.1. Pt. denies unusual bleeding. Will monitor H/H in f/u labs. B12, folate, and iron profile ordered due to current drop in Hgb and generalized weakness. 08/15 Is on coumadin no overt signs of bleeding- will check stool for occult check anemia profile (10) Sepsis Current Visit: Yes Status: Acute Assessment and Plan: Acute sepsis criteria w/WBC of 14.0 and HR of 100. UTI most likely source of infection. Blood cultures x2 ordered. Lactic acid ordered. IVPB ceftriaxone started in ED and to be continued @ 2,000 mg daily for infection coverage. Pt. received 1L bolus in ED. Pt. and f/u labs to be monitored closely for signs of increasing infection/sepsis. 08/15 white count coming down afebrile has some tachycardia this am but improved after metoprolol will monitor (11) Hx of spinal surgery Current Visit: No Status: Chronic Assessment and Plan: Hx of multiple back surgery - last surgery at [facility] approx 5-7 yrs ago ? states that she normally uses a wheelchair and can transfer herself however lately she is unable to transfer herself- complains of lower extremity pain CT of lumbar spine IMPRESSION: 1. Sequelae of multilevel laminectomies and posterior lumbar fusion from L2-L5 without adverse features of the orthopedic hardware identified. 2. Multilevel degenerative changes of the lumbar spine as described above but most pronounced at L1-2 where there is a calcified central disc extrusion demonstrating superior migration resulting in moderate spinal canal stenosis. Mild right neural foraminal narrowing is present as well. 3. Multilevel neural foraminal narrowing throughout the lumbar spine most severe on the left at L5-S1. -PT/OT consult -Bedside commode -ortho spine consult - Time Spent with Patient Total time spent is greater than 50% in coordination of care (as documented) at patient's floor/unit and/or counseling patient: Internal Medicine: Result - Labs CBC & Chem 7: 08/15/18 00:28 08/15/18 00:28 Labs: Short CBC 08/15/18 Range/Units 00:28 WBC 13.9 H (4.3-11.1) K/mcL Hgb 10.0 L (11.5-15.4) g/dL Hct 33.0 L (35.3-44.9) % Plt Count 308 (140-400) K/mcL Neutrophils # 11.0 H (1.6-8.9) K/mcL BMP 08/15/18 00:28 Sodium 137 Potassium 4.1 Chloride 104 Carbon Dioxide 25 BUN 22 Creatinine 1.41 H Glucose 121 H Calcium 8.9 Liver Function 08/15/18 Range/Units 00:28 Total Bilirubin 0.3 (0.3-1.0) mg/dL AST 22 (13-39) Units/L ALT 22 (7-52) Units/L Alkaline Phosphatase 84 (34-104) Units/L Albumin 3.3 L (3.5-5.7) g/dL - ABG Interpretation ABG results: PT/INR, D-dimer PT 21.0 Seconds (9.4-12.1) H 08/15/18 00:28 Consult Discharge Plan - Plan Referrals: Shamir Mckeon MD [Primary Care Provider] - (3) UTI (urinary tract infection) Qualifiers: Urinary tract infection type: site unspecified Hematuria presence: without hematuria Qualified Code(s): N39.0 - Urinary tract infection, site not specified (4) Atrial fibrillation Qualifiers: Atrial fibrillation type: paroxysmal Qualified Code(s): I48.0 - Paroxysmal atrial fibrillation (5) HTN (hypertension) Qualifiers: Hypertension type: essential hypertension Qualified Code(s): I10 - Essential (primary) hypertension (6) HLD (hyperlipidemia) Qualifiers: Hyperlipidemia type: pure hypercholesterolemia Qualified Code(s): E78.00 - Pure hypercholesterolemia, unspecified; E78.0 - Pure hypercholesterolemia (10) Sepsis Qualifiers: Sepsis type: sepsis due to unspecified organism Qualified Code(s): A41.9 - Sepsis, unspecified organism
[2018-08-15] MEDS: Sennosides/Docusate Sodium TABLET PO SCH (17:34)
[2018-08-15] MEDS ORDERED: *HR* Warfarin 2.5 MG TABLET PO SCH (18:00)
[2018-08-15] MEDS: *HR* HYDROcodone/Acet 5/325 mg TABLET PO PRN (20:52)
[2018-08-16 04:32] LABS: Basophils # 0.1 K/mcL (0.0-0.2); Basophils % 0.5 %; Eosinophils # 0.1 K/mcL (0.0-0.6); Eosinophils % 0.8 %; Hematocrit 32.1 % (35.3-44.9); Hemoglobin 9.9 g/dL (11.5-15.4); Immature Granulocytes % 0.4 % (0-4); Lymphocytes # 2.5 K/mcL (0.6-4.6); Lymphocytes % 18.6 %; Mean Corpuscular HGB Conc 30.8 g/dL (31.6-35.5); Mean Corpuscular Volume 87.7 fL (83.0-100.0); Mean Platelet Volume 10.9 fL (9.4-12.4); Monocytes # 1.1 K/mcL (0.0-1.3); Monocytes % 8.3 %; Neutrophils # 9.6 K/mcL (1.6-8.9); Platelet Count 317 K/mcL (140-400); Red Blood Count 3.66 M/mcL (3.82-4.97); Red Cell Distribution Width 14.4 % (11.5-14.5); Segmented Neutrophils % 71.4 %
[2018-08-16 04:33] LABS: INR 1.7
[2018-08-16 04:46] LABS: Albumin 3.4 g/dL (3.5-5.7); Albumin/Globulin Ratio 1.1 (1.1-2.2); Bilirubin,Total 0.3 mg/dL (0.3-1.0); Globulin 3.2 g/dL (2.4-3.5); Potassium 3.9 mEq/L (3.5-5.1); Total Protein 6.6 g/dL (6.4-8.9)
[2018-08-16] MEDS: Furosemide 40 MG TABLET PO SCH (09:38)
[2018-08-16] MEDS: Multivit/Ca/Min/Fe/FA 1 TAB TABLET PO SCH (09:38)
[2018-08-16] MEDS: cefTRIAXone 2,000 MG in 0.9 % Sodium Chloride Mini Bag 100 ML IVPB SCH (09:38)
[2018-08-16] MEDS: Cholecalciferol (D-3) 1,000 UNIT TABLET PO SCH (09:38)
[2018-08-16] MEDS: IRBESARTAN 150 MG PO SCH (10:05)
--- NOTE | 2018-08-16 12:51 | Spine Progress Note ---
Date of Encounter: 08/16/18 Time of Encounter: 12:41 Subjective Principal diagnosis: Neck and back pain, inability to ambulate, foot pain, Hx of spinal fusion Interval history: Senior is a 77-year-old woman has history of remote lumbar fusion who complains of worsening ability to mobilize/ambulate for the past 6 weeks. She says this is in part to do significant pain in her left lower extremity. She has a history of previous lumbar fusion which was complicated by significant swelling in the bilateral lower extremities per the patient. She has had multiple workups regarding the etiology of her weakness and swelling in the lower extremities but has not had any definitive etiology ascertained. Her baseline functional ability was ability to transfer from bed to chair to perform some activities of daily living with the assistance of a male improvement engineer. She now has difficulty even performing this task and is too painful to attempt ambulation even minimal distances. She denies any new bowel bladder symptomatology, fevers chills, or worsening weakness. On exam she is essentially bedridden complaining of neck pain and feet pain. Afebrile vital signs stable. She has significant swelling in the bilateral lower extremities were extremities. She has tenderness to palpation of the left ankle and foot with compression. Her hips move symmetrically. She has limitation with forward flexion and extension of the lumbar spine. She has essentially global weakness in the lower extremity but is able to fire all lower extremity motor groups. She has no clonus. CT scan of the lumbar spine dated 08/14/2018 reveals multilevel degenerative changes. There is an instrumented fusion L2-L5 with pedicle screw hardware which is appropriately placed without complication. There is some adjacent level stenosis at L1-L2 secondary to calcified disc material. The stenosis at this level is judged as moderate. 3 views of the left ankle including views of the left foot were ordered and evaluated secondary to tenderness to palpation. There are no osseous abnormalities or acute fractures identified on these studies. Impression: 1) adjacent level degeneration and stenosis L1-L2 2) status post lumbar fusion L2-L5 without hardware complication Plan: I would suggest a rehabilitation program upon discharge. I see no role for acute surgical intervention and do not believe the moderate stenosis found incidentally on CT scan is a significant contributory cause of her worsening functional status. Objective Vital signs: Vital Signs Temp Pulse Resp BP Pulse Ox 08/16/18 10:34 100.0 F H 134 18 152/81 97 08/16/18 06:29 99.8 F H 103 18 149/65 97 08/16/18 03:51 98.3 F 97 16 120/80 95 08/16/18 00:31 98.5 F 113 16 120/69 96 08/15/18 20:52 97 08/15/18 17:45 98.7 F 105 18 158/87 97 08/15/18 14:30 98.6 F 103 16 164/92 94 08/15/18 14:03 98.6 F 93 14 158/70 96 Intake and Output 08/15/18 08/16/18 08/16/18 23:59 07:59 15:59 Intake Total 240 / 240 120 / 120 Balance 240 / 240 120 / 120 Intake: Oral 240 / 240 120 / 120 Other: Meal Dinner Breakfast Percent of Meal Consumed 90% 100% # Urine Diapers 1 Weight 111.13 kg Blood Glucose* 175 140 161 Patient Weight 08/16/18 23:59 Weight 111.13 kg - Labs CBC & BMP: 08/16/18 03:37 08/16/18 03:37 Labs: Abnormal lab results WBC 13.5 K/mcL (4.3-11.1) H 08/16/18 03:37 RBC 3.66 M/mcL (3.82-4.97) L 08/16/18 03:37 Hgb 9.9 g/dL (11.5-15.4) L 08/16/18 03:37 Hct 32.1 % (35.3-44.9) L 08/16/18 03:37 MCH 27.0 pg (28.0-33.3) L 08/16/18 03:37 MCHC 30.8 g/dL (31.6-35.5) L 08/16/18 03:37 Neutrophils # 9.6 K/mcL (1.6-8.9) H 08/16/18 03:37 PT 19.0 Seconds (9.4-12.1) H 08/16/18 03:37 APTT 37.6 Seconds (26.0-36.0) H 08/15/18 00:28 BUN 25 mg/dL (8-23) H 08/16/18 03:37 Creatinine 1.49 mg/dL (0.60-1.20) H 08/16/18 03:37 Est GFR ( Amer) 41 (> 60) L 08/16/18 03:37 Est GFR (Non-Af Amer) 34 (> 60) L 08/16/18 03:37 Glucose 139 mg/dL (70-105) H 08/16/18 03:37 POC Glucose 175 mg/dL (70-99) H 08/15/18 21:10 Hemoglobin A1c 6.2 % (-5.6) H 08/15/18 00:28 Uric Acid 9.6 mg/dL (2.3-7.6) H 08/15/18 10:54 Iron 20 mcg/dL (50-170) L 08/14/18 10:49 % Saturation 8 % (15-50) L 08/14/18 10:49 Transferrin 171 mg/dL (203-362) L 08/14/18 10:49 Ferritin 280 ng/mL (10-120) H 08/15/18 15:06 Albumin 3.4 g/dL (3.5-5.7) L 08/16/18 03:37 Folate > 22.3 ng/mL (3.0-16.0) H 08/15/18 15:06 Urine Nitrite Positive (Negative) A 08/14/18 12:42 Ur Squamous Epith Cells Many per lpf (None-Few) H 08/14/18 12:42 Urine Bacteria Many per hpf (None-Few) H 08/14/18 12:42 Ur Culture Indicated? NO. (NO) A 08/14/18 12:42 Consult Discharge Plan - Plan Referrals: Shamir Mckeon MD [Primary Care Provider] -
--- NOTE | 2018-08-16 13:21 | Internal Med Progress Note ---
<Marcello Hendrix - Last Filed: 08/16/18 17:02> Hospitalist Progress Note - Encounter Date of Encounter: 08/16/18 - Exam Vitals: Temp Pulse Resp BP Pulse Ox 99.8 F H 120 18 151/77 94 08/16/18 14:47 08/16/18 14:47 08/16/18 14:47 08/16/18 14:47 08/16/18 14:47 - Assessment and Plan (1) Bilateral ankle pain Current Visit: Yes Status: Acute (2) Generalized weakness Current Visit: Yes Status: Acute (3) Unable to ambulate Current Visit: Yes Status: Acute (4) UTI (urinary tract infection) Current Visit: Yes Status: Acute (5) Atrial fibrillation Current Visit: Yes Status: Chronic (6) HTN (hypertension) Current Visit: Yes Status: Chronic (7) HLD (hyperlipidemia) Current Visit: Yes Status: Chronic (8) DVT prophylaxis Current Visit: Yes Status: Acute (9) CKD (chronic kidney disease) stage 3, GFR 30-59 ml/min Current Visit: Yes Status: Chronic (10) Drop in hemoglobin Current Visit: Yes Status: Acute (11) Sepsis Current Visit: Yes Status: Ruled-out (12) Hx of spinal surgery Current Visit: No Status: Chronic - Time Spent with Patient Total time spent is greater than 50% in coordination of care (as documented) at patient's floor/unit and/or counseling patient: Internal Medicine: Result - Labs CBC & Chem 7: 08/16/18 03:37 08/16/18 03:37 Labs: Short CBC 08/16/18 Range/Units 03:37 WBC 13.5 H (4.3-11.1) K/mcL Hgb 9.9 L (11.5-15.4) g/dL Hct 32.1 L (35.3-44.9) % Plt Count 317 (140-400) K/mcL Neutrophils # 9.6 H (1.6-8.9) K/mcL BMP 08/16/18 03:37 Sodium 138 Potassium 3.9 Chloride 105 Carbon Dioxide 24 BUN 25 H Creatinine 1.49 H Glucose 139 H Calcium 9.0 Liver Function 08/16/18 Range/Units 03:37 Total Bilirubin 0.3 (0.3-1.0) mg/dL AST 22 (13-39) Units/L ALT 23 (7-52) Units/L Alkaline Phosphatase 81 (34-104) Units/L Albumin 3.4 L (3.5-5.7) g/dL - ABG Interpretation ABG results: PT/INR, D-dimer PT 19.0 Seconds (9.4-12.1) H 08/16/18 03:37 - Impressions Impressions Ankle X-Ray 08/15/18 17:10 IMPRESSION: Left ankle: No acute osseous abnormality. Left foot: No acute osseous abnormality. D/ / Simeon Miner MD / Simeon Miner MD Interpreting Provider: Simeon Miner MD Foot X-Ray 08/15/18 17:10 IMPRESSION: Left ankle: No acute osseous abnormality. Left foot: No acute osseous abnormality. D/ / Simeon Miner MD / Simeon Miner MD Interpreting Provider: Simeon Miner MD Consult Discharge Plan - Plan Referrals: Shamir Mckeon MD [Primary Care Provider] - - Attending Attestation I examined this patient and my medical decision-making was reviewed with the Resident Physician on 08/16/18. I agree with the documented findings, disposition and treatment plan as described except to the extent set forth below. Ms Irene is currently in observation for bilateral leg and ankle pain. She remains moderate to high risk. Ms Irene is having a lot of pain in her ankles. Hurts to move them. Hurts to touch skin. No fever or chills. No CP or SOB. Exam alert Mod distress Mucus membranes dry Heart tachy and irreg Lungs clear Abd soft Ankles painful bilaterally I/P 1 Bilateral leg and ankle pain - try steroids. 2. Rapid a fib - metoprolol increased. Further diagnoses and plan as above. <Flor Yi - Last Filed: 08/16/18 18:26> Hospitalist Progress Note - Encounter Date of Encounter: 08/16/18 Time of Encounter: 09:23 - Subjective Interval History: Mary was seen lying comfortably in bed. She reports chronic pain for >15 years that has worsened over the past 5 weeks. She complains of bilateral ankle pain that is worse on the left and prevents her from ambulating. She also reports generalized weakness as well as neck and abdominal since be moved around in her bed. She states that she has lost all of her family members and that she has a boyfriend that helps take care of her. She is tired of having to live in such pain and is not interested in further surgical intervention. She sometimes wonders if she would be better off just ending her suffering as she is unable to do any of the things she used to enjoy doing. - Exam Vitals: Temp Pulse Resp BP Pulse Ox 100.0 F H 134 18 152/81 97 08/16/18 10:34 08/16/18 10:34 08/16/18 10:34 08/16/18 10:34 08/16/18 10:34 Exam: Gen: Lying comfortably in bed. NAD. HEENT: Normocephalic, atraumatic Cardio: RRR, normal S1 and S2, no murmurs Resp: CTAB, no wheezing Abd: soft, non-tender, bs noted, no rebound or guarding Extremities: tenderness to palpation bilaterally in the ankles, more on the left than the right. Minimal ROM in the ankles bilaterally due to pain. Left dorsal foot was warm to the touch, mildly swollen, with no erythema. Psych: Depressed, thoughts of being better off than living in such pain - Assessment and Plan (1) Generalized weakness Current Visit: Yes Status: Acute Assessment and Plan: Chronic. Likely secondary to being essentially bed ridden, deconditoned, depressed, with chronic pain s/p lumbar fusion, anemia. Worsening ability to ambulate and increasing LE pain since surgery and more recent decline over the past 5 weeks Was previously using a walker, now requiring a wheelchair and more assistance with daily activities PT/OT following Ortho recommending outpatient rehab, no role for acute surgical intervention Falls/safety precautions Up with assist only (2) Bilateral ankle pain Current Visit: Yes Status: Acute Assessment and Plan: Worsening b/l ankle pain, worse on the left than the right. Patient unable to ambulate d/t pain. Etiology unclear, considering gout versus inflammatory or rheumatalogical process CRP 242 ESR 119 RF 14 Uric acid 9.6 Started prednisone 50mg PO QD x 5 days Consider Rheum consult for Sunday if no improvement\ CCP IgG pending PT/OT following Ortho following (3) Sepsis Current Visit: Yes Status: Suspected Assessment and Plan: Patient had a WBC of 14 and a HR of 100 on presentation Suspect HR elevation to be more related to pain versus infection Suspected UTI as possible source, however UA with many squamous cells Patient is asymptomatic, afebrile WBC 13.5 today HR 63 - 111 Repeat UA pending Will continue abx for now, pending repeat UA Will monitor closely (4) UTI (urinary tract infection) Current Visit: Yes Status: Suspected Assessment and Plan: Suspected UTI, however likely contaminated UA with many squamous cells Patient is asymptomatic, afebrile WBC 14 -> 13.5 Repeat UA pending Continue abx for now Will continue to monitor (5) Atrial fibrillation Current Visit: Yes Status: Chronic Assessment and Plan: Hx of PAF HR 90s-130s today Currently in AFib Continue cardiac telemetry Continue Warfarin Added 25mg to todays dose, increased 75mg BID starting tomorrow Will continue to monitor closely (6) HTN (hypertension) Current Visit: Yes Status: Chronic Assessment and Plan: Chronic, stable Continue Avapro and Metoprolol (7) HLD (hyperlipidemia) Current Visit: Yes Status: Chronic Assessment and Plan: Continue Lipitor (8) CKD (chronic kidney disease) stage 3, GFR 30-59 ml/min Current Visit: Yes Status: Chronic Assessment and Plan: Cr 1.49 eGFR 34 appears to be at baseline Avoid nephrotoxins Will monitor closely - Time Spent with Patient Total time spent is greater than 50% in coordination of care (as documented) at patient's floor/unit and/or counseling patient: Internal Medicine: Result - Labs CBC & Chem 7: 08/16/18 03:37 08/16/18 03:37 Labs: Short CBC 08/16/18 Range/Units 03:37 WBC 13.5 H (4.3-11.1) K/mcL Hgb 9.9 L (11.5-15.4) g/dL Hct 32.1 L (35.3-44.9) % Plt Count 317 (140-400) K/mcL Neutrophils # 9.6 H (1.6-8.9) K/mcL BMP 08/16/18 03:37 Sodium 138 Potassium 3.9 Chloride 105 Carbon Dioxide 24 BUN 25 H Creatinine 1.49 H Glucose 139 H Calcium 9.0 Liver Function 08/16/18 Range/Units 03:37 Total Bilirubin 0.3 (0.3-1.0) mg/dL AST 22 (13-39) Units/L ALT 23 (7-52) Units/L Alkaline Phosphatase 81 (34-104) Units/L Albumin 3.4 L (3.5-5.7) g/dL - ABG Interpretation ABG results: PT/INR, D-dimer PT 19.0 Seconds (9.4-12.1) H 08/16/18 03:37 - Impressions Impressions Ankle X-Ray 08/15/18 17:10 IMPRESSION: Left ankle: No acute osseous abnormality. Left foot: No acute osseous abnormality. D/ / Simeon Miner MD / Simeon Miner MD Interpreting Provider: Simeon Miner MD Foot X-Ray 08/15/18 17:10 IMPRESSION: Left ankle: No acute osseous abnormality. Left foot: No acute osseous abnormality. D/ / Simeon Miner MD / Simeon Miner MD Interpreting Provider: Simeon Miner MD <Marcello Hendrix - Last Filed: 08/16/18 17:02> (1) Bilateral ankle pain Qualifiers: Chronicity: acute Qualified Code(s): M25.571 - Pain in right ankle and joints of right foot; M25.572 - Pain in left ankle and joints of left foot (4) UTI (urinary tract infection) Qualifiers: Urinary tract infection type: acute cystitis Hematuria presence: without hematuria Qualified Code(s): N30.00 - Acute cystitis without hematuria (5) Atrial fibrillation Qualifiers: Atrial fibrillation type: paroxysmal Qualified Code(s): I48.0 - Paroxysmal atrial fibrillation (6) HTN (hypertension) Qualifiers: Hypertension type: essential hypertension Qualified Code(s): I10 - Essential (primary) hypertension (7) HLD (hyperlipidemia) Qualifiers: Hyperlipidemia type: mixed hyperlipidemia Qualified Code(s): E78.2 - Mixed hyperlipidemia (11) Sepsis Qualifiers: Sepsis type: sepsis due to unspecified organism Qualified Code(s): A41.9 - Sepsis, unspecified organism <BasSarahy hanleyra C - Last Filed: 08/16/18 18:26> (2) Bilateral ankle pain Qualifiers: Chronicity: acute Qualified Code(s): M25.571 - Pain in right ankle and joints of right foot; M25.572 - Pain in left ankle and joints of left foot (3) Sepsis Qualifiers: Sepsis type: sepsis due to unspecified organism Qualified Code(s): A41.9 - Sepsis, unspecified organism (4) UTI (urinary tract infection) Qualifiers: Urinary tract infection type: acute cystitis Hematuria presence: without hematuria Qualified Code(s): N30.00 - Acute cystitis without hematuria (5) Atrial fibrillation Qualifiers: Atrial fibrillation type: paroxysmal Qualified Code(s): I48.0 - Paroxysmal atrial fibrillation (6) HTN (hypertension) Qualifiers: Hypertension type: essential hypertension Qualified Code(s): I10 - Essential (primary) hypertension (7) HLD (hyperlipidemia) Qualifiers: Hyperlipidemia type: mixed hyperlipidemia Qualified Code(s): E78.2 - Mixed hyperlipidemia
[2018-08-16 15:11] LABS: Hematocrit RBC Folate 35.5 %
[2018-08-16] MEDS: Sennosides/Docusate Sodium TABLET PO SCH (17:38)
[2018-08-16] MEDS ORDERED: *HR* Warfarin 3 MG TABLET PO ONE (18:00)
[2018-08-16] MEDS: *HR* HYDROcodone/Acet 5/325 mg TABLET PO PRN (20:39)
[2018-08-17 03:30] LABS: Basophils # 0.1 K/mcL (0.0-0.2); Basophils % 0.4 %; Eosinophils % 0.2 %; Hematocrit 34.3 % (35.3-44.9); Hemoglobin 10.4 g/dL (11.5-15.4); Immature Granulocytes % 0.6 % (0-4); Lymphocytes # 3.3 K/mcL (0.6-4.6); Lymphocytes % 19.1 %; Mean Corpuscular HGB Conc 30.3 g/dL (31.6-35.5); Mean Corpuscular Hemoglobin 26.7 pg (28.0-33.3); Mean Corpuscular Volume 88.2 fL (83.0-100.0); Mean Platelet Volume 10.7 fL (9.4-12.4); Monocytes # 1.4 K/mcL (0.0-1.3); Monocytes % 8.2 %; Neutrophils # 12.4 K/mcL (1.6-8.9); Platelet Count 375 K/mcL (140-400); Red Blood Count 3.89 M/mcL (3.82-4.97); Red Cell Distribution Width 14.2 % (11.5-14.5); Segmented Neutrophils % 71.5 %
[2018-08-17 03:35] LABS: INR 1.6; Prothrombin Time 18.3 Seconds (9.4-12.1)
[2018-08-17 03:47] LABS: Albumin 3.4 g/dL (3.5-5.7); Albumin/Globulin Ratio 0.9 (1.1-2.2); Bilirubin,Total 0.5 mg/dL (0.3-1.0); Calcium 9.1 mg/dL (8.6-10.3); Globulin 3.7 g/dL (2.4-3.5); Potassium 3.9 mEq/L (3.5-5.1); Total Protein 7.1 g/dL (6.4-8.9)
[2018-08-17] MEDS: Cholecalciferol (D-3) 1,000 UNIT TABLET PO SCH (09:51)
[2018-08-17] MEDS: predniSONE 20 MG TABLET PO SCH (09:52)
[2018-08-17] MEDS: Furosemide 40 MG TABLET PO SCH (09:52)
[2018-08-17] MEDS: Multivit/Ca/Min/Fe/FA 1 TAB TABLET PO SCH (09:52)
[2018-08-17] MEDS: cefTRIAXone 2,000 MG in 0.9 % Sodium Chloride Mini Bag 100 ML IVPB SCH (10:00)
[2018-08-17] MEDS: IRBESARTAN 150 MG PO SCH (10:05)
[2018-08-17] MEDS: *HR* HYDROcodone/Acet 5/325 mg TABLET PO PRN (10:06)
--- NOTE | 2018-08-17 10:52 | Electrocardiograph Report ---
[place] [id number] Test Date: 2018-08-15 Pat Name: Mary Irene Department: 114 Room: [facility] Gender: F Software [employer]: JJG : 1940 Requested By: Avril Helm Order Number: [id number] Reading MD: Theodora Ann Measurements Intervals [place] Rate: 110 P: [place]: 0 QRS: 9 QRSD: 90 T: 120 QT: 355 QTc: 420 Interpretive Statements ATRIAL FIBRILLATION WITH RAPID VENTRICULAR RESPONSE NONSPECIFIC ST & T-WAVE ABNORMALITY Electronically Signed On 08-17-2018 10:50:11 EDT by Theodora nAn
--- NOTE | 2018-08-17 13:22 | Internal Med Progress Note ---
<KdFlor Piyush - Last Filed: 08/17/18 16:35> Hospitalist Progress Note - Encounter Date of Encounter: 08/17/18 Time of Encounter: 10:42 - Subjective Interval History: Mary was seen lying comfortably in bed. She appears to be in less pain today , although she states that she still has pain all over. When asked about feeling depressed, she denies, but states that she just has a hard time dealing with all of her pain and not being able to do things that she used to. She enjoys playing cards with her boyfriend. She admits to a decreased appetite and states that she often doesn't feel like eating, however her boyfriend encourages her to eat. - Exam Vitals: Temp Pulse Resp BP Pulse Ox 99.1 F 93 17 101/65 95 08/17/18 12:02 08/17/18 12:02 08/17/18 12:02 08/17/18 12:02 08/17/18 12:02 Exam: Gen: Lying comfortably in bed. NAD. HEENT: Normocephalic, atraumatic Cardio: irregular distant heart sounds, no murmurs Resp: CTAB, no wheezing Abd: soft, non-tender, bs noted, no rebound or guarding Extremities: tenderness to palpation bilaterally in the ankles, more on the left than the right. Minimal ROM in the ankles bilaterally due to pain. Left dorsal foot was warm to the touch, mildly swollen, with no erythema. Psych: In slightly better spirits today, however still appears sad - Assessment and Plan (1) Generalized weakness Current Visit: Yes Status: Acute Assessment and Plan: Chronic. Likely secondary to being essentially bed ridden, deconditoned, depressed, with chronic pain s/p lumbar fusion, anemia. Worsening ability to ambulate and increasing LE pain since surgery and more recent decline over the past 5 weeks Was previously using a walker, now requiring a wheelchair and more assistance with daily activities PT/OT following Ortho recommending outpatient rehab, no role for acute surgical intervention Falls/safety precautions Up with assist only (2) Bilateral ankle pain Current Visit: Yes Status: Acute Assessment and Plan: Worsening b/l ankle pain, worse on the left than the right. Patient unable to ambulate d/t pain. Etiology unclear, considering gout versus inflammatory or rheumatalogical process CRP 242 ESR 119 RF 14 Uric acid 9.6 Continue prednisone 50mg PO QD x 5 days Likely Rheum consult for Sunday CCP IgG pending PT/OT following Ortho following (3) Sepsis Current Visit: Yes Status: Suspected Assessment and Plan: Patient had a WBC of 14 and a HR of 100 on presentation Suspect HR elevation to be more related to pain versus infection Suspected UTI as possible source, however UA with many squamous cells Patient is asymptomatic, afebrile WBC 17.3 today HR 90 -130s today, patient asymptomatic when in Afib Repeat UA pending Will continue abx for now, pending repeat UA Will monitor closely (4) UTI (urinary tract infection) Current Visit: Yes Status: Suspected Assessment and Plan: Suspected UTI, however likely contaminated UA with many squamous cells Patient is asymptomatic, afebrile WBC 14 -> 13.5 -> 17.3 today, steroids may be cause of increased leukocytosis Repeat UA pending Continue abx for now Will continue to monitor (5) Atrial fibrillation Current Visit: Yes Status: Chronic Assessment and Plan: Hx of PAF HR 90s-130s today Rates controlled during examination today, continues to fluctuate Continue cardiac telemetry Continue Warfarin Continue Metoprolol 75mg BID Will continue to monitor closely and increase BB as needed for rate control (6) HTN (hypertension) Current Visit: Yes Status: Chronic Assessment and Plan: Chronic, stable Continue Avapro and Metoprolol (7) HLD (hyperlipidemia) Current Visit: Yes Status: Chronic Assessment and Plan: Continue Lipitor (8) CKD (chronic kidney disease) stage 3, GFR 30-59 ml/min Current Visit: Yes Status: Chronic Assessment and Plan: Cr 1.49 to 1.59 today Will hold Lasix for now Continue to monitor closely - Time Spent with Patient Total time spent is greater than 50% in coordination of care (as documented) at patient's floor/unit and/or counseling patient: Internal Medicine: Result - Labs CBC & Chem 7: 08/17/18 02:55 08/17/18 02:55 Labs: Short CBC 08/17/18 Range/Units 02:55 WBC 17.3 H (4.3-11.1) K/mcL Hgb 10.4 L (11.5-15.4) g/dL Hct 34.3 L (35.3-44.9) % Plt Count 375 (140-400) K/mcL Neutrophils # 12.4 H (1.6-8.9) K/mcL BMP 08/17/18 02:55 Sodium 137 Potassium 3.9 Chloride 100 Carbon Dioxide 28 BUN 25 H Creatinine 1.52 H Glucose 136 H Calcium 9.1 Liver Function 08/17/18 Range/Units 02:55 Total Bilirubin 0.5 (0.3-1.0) mg/dL AST 31 (13-39) Units/L ALT 30 (7-52) Units/L Alkaline Phosphatase 88 (34-104) Units/L Albumin 3.4 L (3.5-5.7) g/dL - ABG Interpretation ABG results: PT/INR, D-dimer PT 18.3 Seconds (9.4-12.1) H 08/17/18 02:55 Consult Discharge Plan - Plan Referrals: Shamir Mckeon MD [Primary Care Provider] - <Marcello Hendrix - Last Filed: 08/17/18 17:57> Hospitalist Progress Note - Encounter Date of Encounter: 08/17/18 - Exam Vitals: Temp Pulse Resp BP Pulse Ox 97.6 F 92 17 119/77 95 08/17/18 15:38 08/17/18 15:38 08/17/18 15:38 08/17/18 15:38 08/17/18 15:38 - Assessment and Plan (1) Bilateral ankle pain Current Visit: Yes Status: Acute (2) Generalized weakness Current Visit: Yes Status: Acute (3) Unable to ambulate Current Visit: Yes Status: Acute (4) UTI (urinary tract infection) Current Visit: Yes Status: Suspected (5) Atrial fibrillation Current Visit: Yes Status: Chronic (6) HTN (hypertension) Current Visit: Yes Status: Chronic (7) HLD (hyperlipidemia) Current Visit: Yes Status: Chronic (8) DVT prophylaxis Current Visit: Yes Status: Acute (9) CKD (chronic kidney disease) stage 3, GFR 30-59 ml/min Current Visit: Yes Status: Chronic (10) Drop in hemoglobin Current Visit: Yes Status: Acute (11) Sepsis Current Visit: Yes Status: Suspected (12) Hx of spinal surgery Current Visit: No Status: Chronic - Time Spent with Patient Total time spent is greater than 50% in coordination of care (as documented) at patient's floor/unit and/or counseling patient: Internal Medicine: Result - Labs CBC & Chem 7: 08/17/18 02:55 08/17/18 02:55 Labs: Short CBC 08/17/18 Range/Units 02:55 WBC 17.3 H (4.3-11.1) K/mcL Hgb 10.4 L (11.5-15.4) g/dL Hct 34.3 L (35.3-44.9) % Plt Count 375 (140-400) K/mcL Neutrophils # 12.4 H (1.6-8.9) K/mcL BMP 08/17/18 02:55 Sodium 137 Potassium 3.9 Chloride 100 Carbon Dioxide 28 BUN 25 H Creatinine 1.52 H Glucose 136 H Calcium 9.1 Liver Function 08/17/18 Range/Units 02:55 Total Bilirubin 0.5 (0.3-1.0) mg/dL AST 31 (13-39) Units/L ALT 30 (7-52) Units/L Alkaline Phosphatase 88 (34-104) Units/L Albumin 3.4 L (3.5-5.7) g/dL - ABG Interpretation ABG results: PT/INR, D-dimer PT 18.3 Seconds (9.4-12.1) H 08/17/18 02:55 - Attending Attestation I examined this patient and my medical decision-making was reviewed with the Resident Physician on 08/17/18. I agree with the documented findings, disposition and treatment plan as described except to the extent set forth below. Ms Irene is currently in observation for bilateral leg pain and joint swelling. She remains moderate to high risk. Ms Irene is about the same. She still has joint pain. RF is slightly elevated. ESR/CRP markedly elevated. Currently on steroids and blood sugars now elevated. Exam alert Comfortable at this time Mucus membranes dry Heart tachy and irreg. Lungs clear ABd soft I/P 1. Bilateral leg pain with joint swelling - awaiting further studies. 2. Rapid a fib - meds adjusting. Further diagnoses and plan as above. <Flor Yi - Last Filed: 08/17/18 16:35> (2) Bilateral ankle pain Qualifiers: Chronicity: acute Qualified Code(s): M25.571 - Pain in right ankle and joints of right foot; M25.572 - Pain in left ankle and joints of left foot (3) Sepsis Qualifiers: Sepsis type: sepsis due to unspecified organism Qualified Code(s): A41.9 - Sepsis, unspecified organism (4) UTI (urinary tract infection) Qualifiers: Urinary tract infection type: acute cystitis Hematuria presence: without hematuria Qualified Code(s): N30.00 - Acute cystitis without hematuria (5) Atrial fibrillation Qualifiers: Atrial fibrillation type: paroxysmal Qualified Code(s): I48.0 - Paroxysmal atrial fibrillation (6) HTN (hypertension) Qualifiers: Hypertension type: essential hypertension Qualified Code(s): I10 - Essential (primary) hypertension (7) HLD (hyperlipidemia) Qualifiers: Hyperlipidemia type: mixed hyperlipidemia Qualified Code(s): E78.2 - Mixed hyperlipidemia <Marcello Hendrix - Last Filed: 08/17/18 17:57> (1) Bilateral ankle pain Qualifiers: Chronicity: acute Qualified Code(s): M25.571 - Pain in right ankle and joints of right foot; M25.572 - Pain in left ankle and joints of left foot (4) UTI (urinary tract infection) Qualifiers: Urinary tract infection type: acute cystitis Hematuria presence: without hematuria Qualified Code(s): N30.00 - Acute cystitis without hematuria (5) Atrial fibrillation Qualifiers: Atrial fibrillation type: paroxysmal Qualified Code(s): I48.0 - Paroxysmal atrial fibrillation (6) HTN (hypertension) Qualifiers: Hypertension type: essential hypertension Qualified Code(s): I10 - Essential (primary) hypertension (7) HLD (hyperlipidemia) Qualifiers: Hyperlipidemia type: mixed hyperlipidemia Qualified Code(s): E78.2 - Mixed hyperlipidemia (11) Sepsis Qualifiers: Sepsis type: sepsis due to unspecified organism Qualified Code(s): A41.9 - Sepsis, unspecified organism
[2018-08-17] MEDS ORDERED: *HR* Dextrose 50 % in Water (Syg) 50 ML SYRINGE IVP PRN (17:43)
[2018-08-17] MEDS ORDERED: Dextrose Gel 15 GM/37.5 ML TUBE PO PRN ×2 (17:43)
[2018-08-17] MEDS ORDERED: D5% in Water 1,000 ML IVC PRN (17:43)
[2018-08-17] MEDS ORDERED: *HR* Warfarin 4 MG TABLET PO ONE (18:00)
[2018-08-17] MEDS ORDERED: *HR* Warfarin 2.5 MG TABLET PO SCH (18:00)
[2018-08-17] MEDS: Insulin LISPRO 300 UNITS/3 ML VIAL SQ SCH ×2 (18:02→21:33)
[2018-08-17] MEDS: Sennosides/Docusate Sodium TABLET PO SCH (18:02)
[2018-08-18] MEDS: *HR* HYDROcodone/Acet 5/325 mg TABLET PO PRN (03:38)
[2018-08-18 05:47] LABS: Basophils % 0.1 %; Eosinophils % 0.1 %; Hemoglobin 9.4 g/dL (11.5-15.4); Immature Granulocytes % 0.7 % (0-4); Lymphocytes # 1.7 K/mcL (0.6-4.6); Lymphocytes % 9.8 %; Mean Corpuscular HGB Conc 31.3 g/dL (31.6-35.5); Mean Corpuscular Volume 86.2 fL (83.0-100.0); Mean Platelet Volume 10.9 fL (9.4-12.4); Monocytes % 5.9 %; Neutrophils # 14.3 K/mcL (1.6-8.9); Platelet Count 356 K/mcL (140-400); Red Blood Count 3.48 M/mcL (3.82-4.97); Red Cell Distribution Width 13.8 % (11.5-14.5); Segmented Neutrophils % 83.4 %
[2018-08-18 05:50] LABS: INR 1.8; Prothrombin Time 19.8 Seconds (9.4-12.1)
[2018-08-18 06:10] LABS: Albumin 3.1 g/dL (3.5-5.7); Albumin/Globulin Ratio 0.9 (1.1-2.2); Bilirubin,Total 0.2 mg/dL (0.3-1.0); Calcium 9.1 mg/dL (8.6-10.3); Globulin 3.4 g/dL (2.4-3.5); Potassium 4.2 mEq/L (3.5-5.1); Total Protein 6.5 g/dL (6.4-8.9)
[2018-08-18] MEDS: Insulin LISPRO 300 UNITS/3 ML VIAL SQ SCH ×4 (09:50→21:59)
[2018-08-18] MEDS: Cholecalciferol (D-3) 1,000 UNIT TABLET PO SCH (10:13)
[2018-08-18] MEDS: Multivit/Ca/Min/Fe/FA 1 TAB TABLET PO SCH (10:14)
[2018-08-18] MEDS: cefTRIAXone 2,000 MG in 0.9 % Sodium Chloride Mini Bag 100 ML IVPB SCH (10:14)
[2018-08-18] MEDS: predniSONE 20 MG TABLET PO SCH (10:14)
[2018-08-18] MEDS: Furosemide 40 MG TABLET PO SCH (10:14)
[2018-08-18] MEDS: IRBESARTAN 150 MG PO SCH (10:16)
--- NOTE | 2018-08-18 12:36 | Internal Med Progress Note ---
<Flor Yi - Last Filed: 08/18/18 13:14> Hospitalist Progress Note - Encounter Date of Encounter: 08/18/18 Time of Encounter: 09:03 - Subjective Interval History: Mary was seen lying comfortably in bed. She looked much better today. Her appetite is improving and she was able to tolerate breakfast. - Exam Vitals: Temp Pulse Resp BP Pulse Ox 97.8 F 87 14 149/82 99 08/18/18 10:43 08/18/18 10:43 08/18/18 10:43 08/18/18 10:43 08/18/18 10:43 Exam: Gen: Lying comfortably in bed. NAD. HEENT: Normocephalic, atraumatic Cardio: distant heart sounds, no murmurs Resp: CTAB, no wheezing Abd: soft, non-tender, bs noted, no rebound or guarding Extremities: decreased tenderness to palpation bilaterally in the ankles, more on the left than the right. LE swelling improved. Psych: Answers questions appropriately. - Assessment and Plan (1) Generalized weakness Current Visit: Yes Status: Acute Assessment and Plan: Chronic. Likely secondary to being essentially bed ridden, deconditoned, depressed, with chronic pain s/p lumbar fusion, anemia. Worsening ability to ambulate and increasing LE pain since surgery and more recent decline over the past 5 weeks Was previously using a walker, now requiring a wheelchair and more assistance with daily activities Somewhat improved with steroids PT/OT recommeneding SNF/ECF Ortho recommending outpatient rehab, no role for acute surgical intervention Falls/safety precautions Up with assist only (2) Bilateral ankle pain Current Visit: Yes Status: Acute Assessment and Plan: b/l ankle pain, worse on the left than the right. Patient unable to ambulate d/ t pain. Etiology unclear, considering inflammatory or rheumatalogical process Patient appears to be slowly improving with steroids LE swelling appears to be improving with diuresis Ankle/Foot xrays without acute findings CRP 242 ESR 119 RF 14 Uric acid 9.6 Continue prednisone 50mg PO QD x 5 days Hold lasix d/t Cr. 1.56 today Echo pending to r/o CHF Likely Rheum consult for Sunday CCP IgG pending PT/OT recommending SNF Ortho following (3) Sepsis Current Visit: Yes Status: Suspected Assessment and Plan: Patient had a WBC of 14 and a HR of 100 on presentation Suspect HR elevation to be more related to pain versus infection Suspected UTI as possible source, however UA with many squamous cells Patient is asymptomatic, afebrile WBC 17.2 today, likely d/t steroids HR 80 -100s today, patient asymptomatic when in Afib Afebrile Repeat UA pending collection, will straight cath if worsening leukocytosis Will continue abx for now, ceftriaxone day 4 Will monitor closely (4) UTI (urinary tract infection) Current Visit: Yes Status: Suspected Assessment and Plan: Suspected UTI Patient is asymptomatic Afebrile WBC 14 -> 13.5 -> 17.3 -> 17.2 Repeat UA pending collection Continue abx, ceftriaxone day 4 Will continue to monitor (5) Atrial fibrillation Current Visit: Yes Status: Chronic Assessment and Plan: Hx of PAF HR 80s today, currently rate controlled patient is asymptomatic Continue cardiac telemetry Continue Warfarin Continue Metoprolol 75mg BID Will continue to monitor closely and increase BB as needed for rate control (6) HTN (hypertension) Current Visit: Yes Status: Chronic Assessment and Plan: Chronic, stable Continue Avapro and Metoprolol (7) HLD (hyperlipidemia) Current Visit: Yes Status: Chronic Assessment and Plan: Continue lipitor (8) CKD (chronic kidney disease) stage 3, GFR 30-59 ml/min Current Visit: Yes Status: Chronic Assessment and Plan: Cr 1.56 today Will continue to hold Lasix for now Continue to monitor closely (9) Hyperglycemia Current Visit: Yes Status: Acute Assessment and Plan: Likely secondary to getting steroids A1C 6.2 glucose 250s yesterday, 120s to 160s on low dose SSI Continue low dose SSI Will continue to monitor - Time Spent with Patient Total time spent is greater than 50% in coordination of care (as documented) at patient's floor/unit and/or counseling patient: Internal Medicine: Result - Labs CBC & Chem 7: 08/18/18 05:12 08/18/18 05:12 Labs: Short CBC 08/18/18 Range/Units 05:12 WBC 17.2 H (4.3-11.1) K/mcL Hgb 9.4 L (11.5-15.4) g/dL Hct 30.0 L (35.3-44.9) % Plt Count 356 (140-400) K/mcL Neutrophils # 14.3 H (1.6-8.9) K/mcL BMP 08/18/18 05:12 Sodium 137 Potassium 4.2 Chloride 101 Carbon Dioxide 26 BUN 40 H Creatinine 1.56 H Glucose 163 H Calcium 9.1 Liver Function 08/18/18 Range/Units 05:12 Total Bilirubin 0.2 L (0.3-1.0) mg/dL AST 39 (13-39) Units/L ALT 40 (7-52) Units/L Alkaline Phosphatase 93 (34-104) Units/L Albumin 3.1 L (3.5-5.7) g/dL - ABG Interpretation ABG results: PT/INR, D-dimer PT 19.8 Seconds (9.4-12.1) H 08/18/18 05:12 Consult Discharge Plan - Plan Instructions: How to Check Your Blood Sugar (GEN), Diabetic Foot Care (GEN), Diabetes Mellitus Type 2 in Adults (GEN), Meal Planning with Diabetes Exchanges (DC) Referrals: Shamir Mckeon MD [Primary Care Provider] - <Marcello Hendrix - Last Filed: 08/18/18 16:50> Hospitalist Progress Note - Encounter Date of Encounter: 08/18/18 - Exam Vitals: Temp Pulse Resp BP Pulse Ox 97.6 F 77 16 141/83 95 08/18/18 15:55 08/18/18 15:55 08/18/18 15:55 08/18/18 15:55 08/18/18 15:55 - Assessment and Plan (1) Bilateral ankle pain Current Visit: Yes Status: Acute (2) Generalized weakness Current Visit: Yes Status: Acute (3) Unable to ambulate Current Visit: Yes Status: Acute (4) UTI (urinary tract infection) Current Visit: Yes Status: Suspected (5) Atrial fibrillation Current Visit: Yes Status: Chronic (6) HTN (hypertension) Current Visit: Yes Status: Chronic (7) HLD (hyperlipidemia) Current Visit: Yes Status: Chronic (8) DVT prophylaxis Current Visit: Yes Status: Acute (9) CKD (chronic kidney disease) stage 3, GFR 30-59 ml/min Current Visit: Yes Status: Chronic (10) Drop in hemoglobin Current Visit: Yes Status: Acute (11) Sepsis Current Visit: Yes Status: Suspected (12) Hx of spinal surgery Current Visit: No Status: Chronic - Time Spent with Patient Total time spent is greater than 50% in coordination of care (as documented) at patient's floor/unit and/or counseling patient: Internal Medicine: Result - Labs CBC & Chem 7: 08/18/18 05:12 08/18/18 05:12 Labs: Short CBC 08/18/18 Range/Units 05:12 WBC 17.2 H (4.3-11.1) K/mcL Hgb 9.4 L (11.5-15.4) g/dL Hct 30.0 L (35.3-44.9) % Plt Count 356 (140-400) K/mcL Neutrophils # 14.3 H (1.6-8.9) K/mcL BMP 08/18/18 05:12 Sodium 137 Potassium 4.2 Chloride 101 Carbon Dioxide 26 BUN 40 H Creatinine 1.56 H Glucose 163 H Calcium 9.1 Liver Function 08/18/18 Range/Units 05:12 Total Bilirubin 0.2 L (0.3-1.0) mg/dL AST 39 (13-39) Units/L ALT 40 (7-52) Units/L Alkaline Phosphatase 93 (34-104) Units/L Albumin 3.1 L (3.5-5.7) g/dL - ABG Interpretation ABG results: PT/INR, D-dimer PT 19.8 Seconds (9.4-12.1) H 08/18/18 05:12 - Attending Attestation I examined this patient and my medical decision-making was reviewed with the Resident Physician on 08/18/18. I agree with the documented findings, disposition and treatment plan as described except to the extent set forth below. Ms Irene is currently in observation for bilateral leg pain and joint pain and swelling. She remains moderate to high risk. Ms Irene seems to be doing better. No fever or chills. No CP or SOB. No GI issues. Exam alert Comfortable Mucus membranes dry Heart irreg and still somewhat tachy No wheeze Seems to have less joint pain and swelling I/P 1. Leg and joint pain 2. A fib Further diagnoses and plan as above. <KdFlor Pickett - Last Filed: 08/18/18 13:14> (2) Bilateral ankle pain Qualifiers: Chronicity: acute Qualified Code(s): M25.571 - Pain in right ankle and joints of right foot; M25.572 - Pain in left ankle and joints of left foot (3) Sepsis Qualifiers: Sepsis type: sepsis due to unspecified organism Qualified Code(s): A41.9 - Sepsis, unspecified organism (4) UTI (urinary tract infection) Qualifiers: Urinary tract infection type: acute cystitis Hematuria presence: without hematuria Qualified Code(s): N30.00 - Acute cystitis without hematuria (5) Atrial fibrillation Qualifiers: Atrial fibrillation type: paroxysmal Qualified Code(s): I48.0 - Paroxysmal atrial fibrillation (6) HTN (hypertension) Qualifiers: Hypertension type: essential hypertension Qualified Code(s): I10 - Essential (primary) hypertension (7) HLD (hyperlipidemia) Qualifiers: Hyperlipidemia type: mixed hyperlipidemia Qualified Code(s): E78.2 - Mixed hyperlipidemia <Marcello Hendrix - Last Filed: 08/18/18 16:50> (1) Bilateral ankle pain Qualifiers: Chronicity: acute Qualified Code(s): M25.571 - Pain in right ankle and joints of right foot; M25.572 - Pain in left ankle and joints of left foot (4) UTI (urinary tract infection) Qualifiers: Urinary tract infection type: acute cystitis Hematuria presence: without hematuria Qualified Code(s): N30.00 - Acute cystitis without hematuria (5) Atrial fibrillation Qualifiers: Atrial fibrillation type: paroxysmal Qualified Code(s): I48.0 - Paroxysmal atrial fibrillation (6) HTN (hypertension) Qualifiers: Hypertension type: essential hypertension Qualified Code(s): I10 - Essential (primary) hypertension (7) HLD (hyperlipidemia) Qualifiers: Hyperlipidemia type: mixed hyperlipidemia Qualified Code(s): E78.2 - Mixed hyperlipidemia (11) Sepsis Qualifiers: Sepsis type: sepsis due to unspecified organism Qualified Code(s): A41.9 - Sepsis, unspecified organism
[2018-08-18] MEDS ORDERED: *HR* Warfarin 4 MG TABLET PO ONE (18:00)
[2018-08-18] MEDS: Sennosides/Docusate Sodium TABLET PO SCH (18:32)
[2018-08-18] MEDS ORDERED: Menthol 9.1 MG LOZENGE PO PRN (22:18)
--- NOTE | 2018-08-18 23:51 | Event Note ---
Date of Encounter: 08/18/18 Time of Encounter: 22:57 Alerted by pts. nurse that pt. was reporting SOB and cough w/sputum production. 1V Portable CXR ordered to assess for changes in lungs. XR showed lungs clear with sharp costophrenic angles. cardiomediastinal silhouette WNL. No discernable pneumothorax. Order for cough drops placed.
[2018-08-19 03:44] LABS: INR 2.1; Prothrombin Time 23.7 Seconds (9.4-12.1)
[2018-08-19] MEDS: Insulin LISPRO 300 UNITS/3 ML VIAL SQ SCH ×4 (08:24→21:09)
[2018-08-19] MEDS: Cholecalciferol (D-3) 1,000 UNIT TABLET PO SCH (09:37)
[2018-08-19] MEDS: predniSONE 20 MG TABLET PO SCH (09:37)
[2018-08-19] MEDS: cefTRIAXone 2,000 MG in 0.9 % Sodium Chloride Mini Bag 100 ML IVPB SCH (09:39)
[2018-08-19] MEDS: IRBESARTAN 150 MG PO SCH (09:39)
[2018-08-19] MEDS: Multivit/Ca/Min/Fe/FA 1 TAB TABLET PO SCH (09:39)
--- NOTE | 2018-08-19 09:55 | Rheumatology Consult Note ---
<Angela Zelaya - Last Filed: 08/19/18 16:34> Date of Encounter: 08/19/18 Time of Encounter: 09:43 Rheumatology Assess and Plan (1) Polyarthralgia Current Visit: Yes Status: Acute 77F complains of generalized weakness, pain in bilateral knees, bilateral ankles , and bilateral calcaneus. CT Lumbar Spine: multilevel laminectomies, lumbar fusion of L2-L5, calcified central disc extrusion on L1-L2. Generalized neural foraminal narrowing. Left foot and ankle Xray unremarkable. Right knee XR showed small effusion. ESR: 119 CRP: 242 Uric acid: 9.6 RF: 14 Ferritin: 280 CPK: 44 Assessment: patient presents with many years of polyarthralgia, and generalized weakness. Suspicion for PMR, myositis low at this time. 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 Plan: Arthrocentesis of right knee attempted, but no fluid was obtained. Continue prednisone 40mg for total of five days. Will follow up as outpatient in Rheumatology clinic. Rheumatology HPI Consult date: 08/19/18 Requesting physician: Marcello Hendrix Consult reason: joint pain Chief complaint: weakness History of present illness: Ms. Irene is a 77 year old female with PMHx of paroxysmal Atrial Fibrillation ( on coumadin), pre-diabetes, chronic back pain with history of back surgery, CKD stage IIIb. Patient was admitted to [facility] on 08/14/18 for generalized weakness, inability to ambulate, left flank pain, worsening weakness for about five weeks. Patient is a poor historian and it is very difficult to obtain information from her. She states that her weakness started many years ago and has been worsening recently. She reports that she had back surgery about 15 years ago, and ever since then, she has had difficulty ambulating. She normally uses a walker but has been using a wheelchair. SHe reports pain at the bottom of her feet when walking. She also reports pain in bilateral ankles, bilateral knees that has been going on for many years. She denies proximal muscle weakness. She denies nausea, vomiting, diarrhea, fever, chills, chest pain, shortness of breath. Social History: does not work. Lives with her boyfriend. Has no children. Drinks socially. No current or past history of smoking. Surgeries: back surgery 15 years ago, cholecystectomy about 20 years ago, right foot oepration. No known family history of autoimmune disorders. Past Med Surg Social Fam HX - Past Medical History Medical history: atrial fibrillation, hyperlipidemia, hypertension Additional medical history: Neuralgia. Degenerative lumbar spinal stenosis. Osteoarthritis of spine Psychiatric history: no psych history - Past Surgical History Surgical History: cholecystectomy Additional surgical history: back. heel spurs - Social History Smoking Status: Never smoker Smokeless Tobacco Status: No Alcohol use: none Drug use: none - Family History Father Race: Family Member Ethnicity: Non- Living Status: Age at : 84 Cause of : Colon cancer Hx Family Cardiac Disorders: Yes (CAD) Hx Family Cancer: Yes (Colon) Mother Race: Family Member Ethnicity: Non- Living Status: Age at : 78 Cause of : Alzheimer's disease Hx Family Endocrine Disorder: Yes (DM) Hx Family Neurologic Disorders: Yes (Alzheimer's disease) Sister Race: Family Member Ethnicity: Non- Living Status: Age at : 69 Cause of : Colon cancer Hx Family Cancer: Yes (Colon) Medications and Allergies Atorvastatin Calcium [Lipitor] 20 mg PO DAILY 08/14/18 [History] Cholecalciferol (D-3) [Vitamin D] 1,000 unit PO DAILY 08/14/18 [History] Diphenhydramine HCl [Ez Nite Sleep] 50 mg PO HS 08/14/18 [History] Furosemide [Lasix] 40 mg PO DAILY 08/14/18 [History] Irbesartan [Avapro] 150 mg PO DAILY 08/14/18 [History] Metoprolol Tartrate [Lopressor] 50 mg PO BID 08/14/18 [History] Multivitamin [One Daily Multivitamin] 1 each PO DAILY 08/14/18 [History] Potassium Chloride [K-Tab ER] 10 meq PO DAILY 08/14/18 [History] Sennosides/Docusate Sodium [Senna-S Tablet] 2 tab PO QPM 08/14/18 [History] Warfarin [Coumadin] 2.5 mg PO DAILY 08/14/18 [History] 3 Allergy/AdvReac Type Severity Reaction Status Date / Time [place] Inhibitors Allergy Hypotension Verified 08/14/18 10:50 aspirin [ASA] Allergy See Verified 08/14/18 10:50 Comments methyldopa Allergy Hives Verified 08/14/18 10:50 Triamterene Allergy Chills Verified 08/14/18 10:50 amlodipine AdvReac Swelling Verified 08/14/18 10:50 of Lip/Tongue/Throat atenolol AdvReac Palpitation Verified 08/14/18 10:50 s cefdinir AdvReac Dizziness Verified 08/14/18 10:50 clarithromycin AdvReac Hives Verified 08/14/18 10:50 duloxetine AdvReac See Verified 08/14/18 10:50 Comments enalapril AdvReac Hypotension Verified 08/14/18 10:50 guaifenesin AdvReac Hives Verified 08/14/18 10:50 indapamide AdvReac Hives Verified 08/14/18 14:20 losartan AdvReac Itching Verified 08/14/18 10:50 nifedipine AdvReac Hives Verified 08/14/18 10:50 NSAIDS (Non-Steroidal AdvReac See Verified 08/14/18 14:20 Anti-Inflamma Comments pregabalin [From Lyrica] AdvReac See Verified 08/14/18 10:50 Comments tramadol AdvReac See Verified 08/14/18 10:50 Comments All Systems Review: General: denies nausea, vomiting, diarrhea, fever, chills, weight changes. Neuro: as per HPI. No history of seizures or confusion. ENT: denies oral or nasal ulcers. CV: no chest pain, palpitations. No history of serositis, no chest pain. Respiratory: denies shortness of breath. Admits to cough with white sputum production. GI: denies abdominal pain, melena, hematochezia, nausea, vomiting. MSK: as per HPI Heme/onc: no history of blood clots, no history of miscarriages. Skin: no rashes. No genital ulcers. Rheumatology Exam Vital Signs, Last 4 Hours Temp Pulse Resp BP Pulse Ox 08/19/18 07:10 97.5 F L 77 14 131/83 94 Exam: General: alert and oriented x3. obese. pleasant, no acute distress. afebrile, normal heart rate, normotensive. ENT: normal inspection of ears, nose, nasal and oral mucosa. Oral mucosa appears moist. No lesions or masses of the lips or gums. CV: regular rate and rhythm, normal S1, S2, no murmurs, rubs, gallops, or thrills appreciated. +2 bilateral lower extremity pitting edema present up to the ankles. Eyes: no scleral icterus, PERRL, intact extraocular movements, normal appearing conjunctiva and eyelids. Respiratory: normal respiratory effort, no intercostal retraction or accessory muscle use. No dullness to percussion. GI: abdomen obese, soft, non distended, non tender. Bowel sounds present. No organomegaly or hernias appreciated. SKin: No ulcers or rashes noted. nail exam could not be performed due to nail qatari. neuro: cranial nerves 2-12 intact, no focal deficits. No pathologic reflexes present. intact sensation. gait could not be assessed due to joint pain. MSK: No clubbing or cyanosis of the extremities present. Shoulders: normal ROM, no joint pain, erythema noted. No pain upon palpation wrists/hands: full ROM, no erythema, warmth, tenderness bilateral knees: no warmth or erythema. No effusion appreciate. No laxity on varus or valgus stress. Anterior drawr test negative. Pain present with flexion of the right knee. Muscle strength: 5/5 on upper and lower extremities. Ankles: decreased ROM Rheumatology Results 08/19/18 09:38 08/19/18 09:38 Immunology Rheumatoid Factor 14 IU/mL (Less than 14) H 08/16/18 14:42 All other labs normal. Rheumatology Procedures - Joint Aspiration/Injection Joint Aspiration/Injection 1 Consent obtained: written consent Time out performed: Yes Side of body: right Joint aspirated: knee (right knee) Ultrasound guidance: No Skin prep: Chlorhexidine Local anesthesia used: other (none) Needle size used: 18G Total fluid obtained (mLs): 0 Patient tolerated procedure: well Complications: none Consult Discharge Plan - Plan Instructions: How to Check Your Blood Sugar (GEN), Diabetic Foot Care (GEN), Diabetes Mellitus Type 2 in Adults (GEN), Meal Planning with Diabetes Exchanges (DC) Referrals: Shamir Mckeon MD [Primary Care Provider] - <Oscar Chanel - Last Filed: 08/19/18 17:38> Date of Encounter: 08/19/18 Rheumatology HPI History of present illness: Ms. Irene is a 77 year old female All Systems Review: The remainder of the systems were reviewed and are negative Rheumatology Exam Vital Signs, Last 4 Hours Temp Pulse Resp BP Pulse Ox 08/19/18 15:15 97.8 F 94 15 135/78 98 Rheumatology Results 08/19/18 09:38 08/19/18 09:38 Immunology Rheumatoid Factor 14 IU/mL (Less than 14) H 08/16/18 14:42 All other labs normal. - Attending Attestation I examined this patient and my medical decision making was reviewed with the resident physician. I agree with the documented findings, disposition and treatment as described with these exceptions. Mary Irene is a 77-year-old female with PMH of A-fib, HTN, HLD, CKD 3 and gout who presents to [facility] with generalized weakness. Workup with elevated inflammatory markers, elevated uric acid. Low-titered RF. Ankle Xrays unremarkable. Exam - Right knee effusion with tenderness on palpation At this time, her exam is positive for a right knee effusion which is one of her most symptomatic areas. Attempted to aspirate but unsuccessful. My suspicion is that we may be dealing with a gouty arthritis that may be contributing to the general sense of pain and weakness especially if nothing else is found. Would recommend continued prednisone and I will follow-up in clinic in 1-2 weeks to further discuss.
[2018-08-19 09:57] LABS: Basophils % 0.2 %; Eosinophils % 0.1 %; Hematocrit 35.3 % (35.3-44.9); Hemoglobin 10.9 g/dL (11.5-15.4); Immature Granulocytes % 0.8 % (0-4); Lymphocytes # 2.7 K/mcL (0.6-4.6); Lymphocytes % 15.2 %; Mean Corpuscular HGB Conc 30.9 g/dL (31.6-35.5); Mean Corpuscular Hemoglobin 26.9 pg (28.0-33.3); Mean Corpuscular Volume 87.2 fL (83.0-100.0); Mean Platelet Volume 10.8 fL (9.4-12.4); Monocytes # 0.7 K/mcL (0.0-1.3); Monocytes % 4.2 %; Neutrophils # 13.9 K/mcL (1.6-8.9); Platelet Count 450 K/mcL (140-400); Red Blood Count 4.05 M/mcL (3.82-4.97); Segmented Neutrophils % 79.5 %
[2018-08-19 10:16] LABS: Calcium 9.5 mg/dL (8.6-10.3); Potassium 4.5 mEq/L (3.5-5.1)
--- NOTE | 2018-08-19 11:00 | Internal Med Progress Note ---
<Marcello Hendrix - Last Filed: 08/19/18 14:27> Hospitalist Progress Note - Encounter Date of Encounter: 08/19/18 - Exam Vitals: Temp Pulse Resp BP Pulse Ox 97.5 F L 81 15 138/72 96 08/19/18 12:09 08/19/18 12:09 08/19/18 12:09 08/19/18 12:09 08/19/18 12:09 - Assessment and Plan (1) Bilateral ankle pain Current Visit: Yes Status: Acute (2) Generalized weakness Current Visit: Yes Status: Acute (3) Unable to ambulate Current Visit: Yes Status: Acute (4) UTI (urinary tract infection) Current Visit: Yes Status: Suspected (5) Atrial fibrillation Current Visit: Yes Status: Chronic (6) HTN (hypertension) Current Visit: Yes Status: Chronic (7) HLD (hyperlipidemia) Current Visit: Yes Status: Chronic (8) DVT prophylaxis Current Visit: Yes Status: Acute (9) CKD (chronic kidney disease) stage 3, GFR 30-59 ml/min Current Visit: Yes Status: Chronic (10) Drop in hemoglobin Current Visit: Yes Status: Acute (11) Sepsis Current Visit: Yes Status: Suspected (12) Hx of spinal surgery Current Visit: No Status: Chronic - Time Spent with Patient Total time spent is greater than 50% in coordination of care (as documented) at patient's floor/unit and/or counseling patient: Internal Medicine: Result - Labs CBC & Chem 7: 08/19/18 09:38 08/19/18 09:38 Labs: Short CBC 08/19/18 Range/Units 09:38 WBC 17.5 H (4.3-11.1) K/mcL Hgb 10.9 L D (11.5-15.4) g/dL Hct 35.3 (35.3-44.9) % Plt Count 450 H (140-400) K/mcL Neutrophils # 13.9 H (1.6-8.9) K/mcL BMP 08/19/18 09:38 Sodium 139 Potassium 4.5 Chloride 103 Carbon Dioxide 24 BUN 44 H Creatinine 1.38 H Glucose 131 H Calcium 9.5 - ABG Interpretation ABG results: PT/INR, D-dimer PT 23.7 Seconds (9.4-12.1) H 08/19/18 03:16 - Impressions Impressions Chest X-Ray 08/18/18 22:20 IMPRESSION: Clear lungs. D/ / Tang Vivas MD / Tang Vivas MD Interpreting Provider: Tang Vivas MD Consult Discharge Plan - Plan Instructions: How to Check Your Blood Sugar (GEN), Diabetic Foot Care (GEN), Diabetes Mellitus Type 2 in Adults (GEN), Meal Planning with Diabetes Exchanges (DC) Referrals: Shamir Mckeon MD [Primary Care Provider] - - Attending Attestation I examined this patient and my medical decision-making was reviewed with the Resident Physician on 08/19/18. I agree with the documented findings, disposition and treatment plan as described except to the extent set forth below. Ms Irene is currently in observation due to bilateral leg pain and joint swelling as well as rapid a fib. She remains moderate to high risk due to potential for worsening clinical status. Ms Irene is going to echo. She is still complaining of pain but clinically seems to be better. Rheum to see today. No fever or chills. No CP or SOB. Heartrate appears better controlled today. Exam alert Comfortable Mucus membranes dry Heart irreg and not tachy No wheeze abd soft I/P 1. Bilateral leg pain - on steroids. Rheum to see today 2. A fib - appears to be better rate controlled with increased meds Further diagnoses and plan as above. Working on d/c to SNF. <Flor Yi - Last Filed: 08/19/18 16:19> Hospitalist Progress Note - Encounter Date of Encounter: 08/19/18 Time of Encounter: 03:43 - Subjective Interval History: Mary was seen lying comfortably in bed. She appears much better today and is able to move her left leg with much less pain. Steroids appear to be helping. - Exam Vitals: Temp Pulse Resp BP Pulse Ox 97.5 F L 77 14 131/83 94 08/19/18 07:10 08/19/18 07:10 08/19/18 07:10 08/19/18 07:10 08/19/18 07:10 Exam: Gen: Lying comfortably in bed. NAD. HEENT: Normocephalic, atraumatic Cardio: distant heart sounds, no murmurs Resp: CTAB, no wheezing Abd: soft, non-tender, bs noted, no rebound or guarding Extremities: No tenderness in ankles bilaterally today, significantly improved. Able to bend her left knee. Right knee painful and difficult to bend. Psych: Answers questions appropriately. - Assessment and Plan (1) Generalized weakness Current Visit: Yes Status: Acute Assessment and Plan: Chronic. Likely secondary to being essentially bed ridden, deconditoned, depressed, with chronic pain s/p lumbar fusion, anemia. Worsening ability to ambulate and increasing LE pain since surgery and more recent decline over the past 5 weeks Was previously using a walker, now requiring a wheelchair and more assistance with daily activities Somewhat improved with steroids Continue steroids day 3/5 Consulted Rheumatology, appreciate recommendations PT/OT recommeneding SNF/ECF Ortho recommending outpatient rehab, no role for acute surgical intervention Falls/safety precautions Up with assist only (2) Bilateral ankle pain Current Visit: Yes Status: Acute Assessment and Plan: b/l ankle pain, worse on the left than the right. Patient unable to ambulate d/t pain. Etiology unclear, considering inflammatory or rheumatalogical process Patient appears to be slowly improving with steroids LE swelling appears to be improving with diuresis Ankle/Foot xrays without acute findings CRP 242 ESR 119 RF 14 Uric acid 9.6 Continue steroids day 3/5 Restarted home lasix Echo pending to r/o CHF Rheumatology following, appreciate recommendations CCP IgG pending PT/OT recommending SNF (3) Sepsis Current Visit: Yes Status: Resolved Assessment and Plan: Patient had a WBC of 14 and a HR of 100 on presentation Suspect HR elevation to be more related to pain versus infection Suspected UTI as possible source, however UA with many squamous cells Patient is asymptomatic, afebrile WBC 17.5 today, likely d/t steroids HR 70 -90s today, patient asymptomatic when in Afib Afebrile Repeat UA pending collection, will straight cath if worsening leukocytosis Completed 5 day course of Ceftriaxone Will monitor closely (4) UTI (urinary tract infection) Current Visit: Yes Status: Suspected Assessment and Plan: Suspected UTI Patient is asymptomatic Afebrile WBC 14 -> 13.5 -> 17.3 -> 17.2 -> 17.5 today (likely d/t steroids) Completed 5 day course of Ceftriaxone Will continue to monitor (5) Atrial fibrillation Current Visit: Yes Status: Chronic Assessment and Plan: Hx of PAF HR 70-90s today, currently rate controlled patient is asymptomatic Continue cardiac telemetry Continue Warfarin Continue Metoprolol 75mg BID Will continue to monitor closely and increase BB as needed for rate control (6) HTN (hypertension) Current Visit: Yes Status: Chronic Assessment and Plan: Chronic, stable Continue Avapro and Metoprolol (7) HLD (hyperlipidemia) Current Visit: Yes Status: Inactive Assessment and Plan: Continue lipitor (8) CKD (chronic kidney disease) stage 3, GFR 30-59 ml/min Current Visit: Yes Status: Chronic Assessment and Plan: Cr 1.38 today Restarted home lasix Avoid nephrotoxic agents (9) Hyperglycemia Current Visit: Yes Status: Acute Assessment and Plan: Likely secondary to steroids A1C 6.2 glucose 120-130s today on low dose SSI Continue low dose SSI Will continue to monitor DVT Prophylaxis: Warfarin with pharmacy dosing for DVT prophylaxis - Time Spent with Patient Total time spent is greater than 50% in coordination of care (as documented) at patient's floor/unit and/or counseling patient: 25 - 35 minutes Plan of Care Discussed with: patient Internal Medicine: Result - Labs CBC & Chem 7: 08/19/18 09:38 08/19/18 09:38 Labs: Short CBC 08/19/18 Range/Units 09:38 WBC 17.5 H (4.3-11.1) K/mcL Hgb 10.9 L D (11.5-15.4) g/dL Hct 35.3 (35.3-44.9) % Plt Count 450 H (140-400) K/mcL Neutrophils # 13.9 H (1.6-8.9) K/mcL BMP 08/19/18 09:38 Sodium 139 Potassium 4.5 Chloride 103 Carbon Dioxide 24 BUN 44 H Creatinine 1.38 H Glucose 131 H Calcium 9.5 - ABG Interpretation ABG results: PT/INR, D-dimer PT 23.7 Seconds (9.4-12.1) H 08/19/18 03:16 - Impressions Impressions Chest X-Ray 08/18/18 22:20 IMPRESSION: Clear lungs. D/ / Tang Vivas MD / Tang Vivas MD Interpreting Provider: Tang Vivas MD <Marcello Hendrix - Last Filed: 08/19/18 14:27> (1) Bilateral ankle pain Qualifiers: Chronicity: acute Qualified Code(s): M25.571 - Pain in right ankle and joints of right foot; M25.572 - Pain in left ankle and joints of left foot (4) UTI (urinary tract infection) Qualifiers: Urinary tract infection type: acute cystitis Hematuria presence: without hematuria Qualified Code(s): N30.00 - Acute cystitis without hematuria (5) Atrial fibrillation Qualifiers: Atrial fibrillation type: paroxysmal Qualified Code(s): I48.0 - Paroxysmal atrial fibrillation (6) HTN (hypertension) Qualifiers: Hypertension type: essential hypertension Qualified Code(s): I10 - Essential (primary) hypertension (7) HLD (hyperlipidemia) Qualifiers: Hyperlipidemia type: mixed hyperlipidemia Qualified Code(s): E78.2 - Mixed hyperlipidemia (11) Sepsis Qualifiers: Sepsis type: sepsis due to unspecified organism Qualified Code(s): A41.9 - Sepsis, unspecified organism <Basil,Flor C - Last Filed: 08/19/18 16:19> (2) Bilateral ankle pain Qualifiers: Chronicity: acute Qualified Code(s): M25.571 - Pain in right ankle and joints of right foot; M25.572 - Pain in left ankle and joints of left foot (3) Sepsis Qualifiers: Sepsis type: sepsis due to unspecified organism Qualified Code(s): A41.9 - Sepsis, unspecified organism (4) UTI (urinary tract infection) Qualifiers: Urinary tract infection type: acute cystitis Hematuria presence: without hematuria Qualified Code(s): N30.00 - Acute cystitis without hematuria (5) Atrial fibrillation Qualifiers: Atrial fibrillation type: paroxysmal Qualified Code(s): I48.0 - Paroxysmal atrial fibrillation (6) HTN (hypertension) Qualifiers: Hypertension type: essential hypertension Qualified Code(s): I10 - Essential (primary) hypertension (7) HLD (hyperlipidemia) Qualifiers: Hyperlipidemia type: mixed hyperlipidemia Qualified Code(s): E78.2 - Mixed hyperlipidemia
[2018-08-19] MEDS: *HR* HYDROcodone/Acet 5/325 mg TABLET PO PRN (11:20)
[2018-08-19] MEDS ORDERED: Perflutren Lipid Microsphere 1.3 ML in 0.9 % Sodium Chloride 8.7 ML IVP ONE (13:03)
[2018-08-19] MEDS: Furosemide 40 MG TABLET PO SCH (17:58)
[2018-08-19] MEDS: Sennosides/Docusate Sodium TABLET PO SCH (17:58)
[2018-08-19] MEDS ORDERED: *HR* Warfarin 3 MG TABLET PO ONE (18:00)
[2018-08-19 22:09] LABS: Bilirubin,Urine Negative (Negative); Blood,Urine Negative (Negative); Clarity,Urine Clear (Clear); Color,Urine Yellow (Yellow); Glucose,Urine (UA) Normal (Normal); Ketones,Urine Negative (Negative); Leukocyte Esterase,Urine Negative (Negative); Nitrite,Urine Negative (Negative); Protein,Urine Negative (Neg-Trace); Specific Gravity,Urine 1.022 (1.010-1.025); Urobilinogen,Urine Normal (Normal)
[2018-08-20 05:14] LABS: Basophils % 0.2 %; Eosinophils % 0.1 %; Hematocrit 32.5 % (35.3-44.9); Hemoglobin 9.8 g/dL (11.5-15.4); Immature Granulocytes % 1.2 % (0-4); Lymphocytes % 14.2 %; Mean Corpuscular HGB Conc 30.2 g/dL (31.6-35.5); Mean Corpuscular Hemoglobin 26.4 pg (28.0-33.3); Mean Corpuscular Volume 87.6 fL (83.0-100.0); Mean Platelet Volume 10.9 fL (9.4-12.4); Monocytes # 0.9 K/mcL (0.0-1.3); Monocytes % 6.3 %; Neutrophils # 11.3 K/mcL (1.6-8.9); Platelet Count 412 K/mcL (140-400); Red Blood Count 3.71 M/mcL (3.82-4.97); Red Cell Distribution Width 13.9 % (11.5-14.5)
[2018-08-20 05:23] LABS: INR 2.6; Prothrombin Time 29.8 Seconds (9.4-12.1)
[2018-08-20 05:37] LABS: Calcium 9.1 mg/dL (8.6-10.3); Potassium 4.3 mEq/L (3.5-5.1)
[2018-08-20] MEDS: Insulin LISPRO 300 UNITS/3 ML VIAL SQ SCH ×4 (07:54→22:11)
[2018-08-20] MEDS: Multivit/Ca/Min/Fe/FA 1 TAB TABLET PO SCH (09:31)
[2018-08-20] MEDS: Cholecalciferol (D-3) 1,000 UNIT TABLET PO SCH (09:31)
[2018-08-20] MEDS: Furosemide 40 MG TABLET PO SCH (09:31)
[2018-08-20] MEDS: predniSONE 20 MG TABLET PO SCH (09:31)
[2018-08-20] MEDS: IRBESARTAN 150 MG PO SCH (09:32)
--- NOTE | 2018-08-20 09:39 | Rheumatology Progress Note ---
<Angela Zelaya - Last Filed: 08/20/18 14:24> Date of Encounter: 08/20/18 Time of Encounter: 09:37 Rheumatology Assess and Plan (1) Polyarthralgia Current Visit: Yes Status: Acute 77F complains of generalized weakness, pain in bilateral knees, bilateral ankles , and bilateral calcaneus. CT Lumbar Spine: multilevel laminectomies, lumbar fusion of L2-L5, calcified central disc extrusion on L1-L2. Generalized neural foraminal narrowing. Left foot and ankle Xray unremarkable. Right knee XR showed small effusion. ESR: 119 CRP: 242 Uric acid: 9.6 RF: 14, CCP: 55 Ferritin: 280 CPK: 44 Assessment: patient presents with many years of polyarthralgia, and generalized weakness. 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 Also consider RA with superimposed OA. Plan: Continue prednisone 40mg for total of five days. Will follow up as outpatient in Rheumatology clinic. - Subjective Interval history: 77F evaluated at bedside. She denies nausea, vomiting, diarrhea, fever, chills, chest pain, shortness of breath. she denies any new problems today. Exam Vital Signs, Last 4 Hours Temp Pulse Resp BP Pulse Ox 08/20/18 07:22 97.6 F 67 17 119/63 97 Exam: General: alert and oriented x3. obese. pleasant, no acute distress. afebrile, normal heart rate, normotensive. ENT: normal inspection of ears, nose, nasal and oral mucosa. Oral mucosa appears moist. No lesions or masses of the lips or gums. CV: regular rate and rhythm, normal S1, S2, no murmurs, rubs, gallops, or thrills appreciated. +1 bilateral lower extremity pitting edema present up to the ankles. Eyes: no scleral icterus, PERRL, intact extraocular movements, normal appearing conjunctiva and eyelids. Respiratory: normal respiratory effort, no intercostal retraction or accessory muscle use. No dullness to percussion. GI: abdomen obese, soft, non distended, non tender. Bowel sounds present. No organomegaly or hernias appreciated. SKin: No ulcers or rashes noted. nail exam could not be performed due to nail malagasy. neuro: cranial nerves 2-12 intact, no focal deficits. No pathologic reflexes present. intact sensation. gait could not be assessed due to joint pain. MSK: No clubbing or cyanosis of the extremities present. Shoulders: normal ROM, no joint pain, erythema noted. No pain upon palpation wrists/hands: full ROM, no erythema, warmth, tenderness bilateral knees: no warmth or erythema. mild effusion in right knee appreciated. No laxity on varus or valgus stress. Anterior drawr test negative. improved range of motion of bilateral knees compared to yesterday. +1 bilateral lower extremity pitting edema. Muscle strength: 5/5 on upper and lower extremities. Ankles: decreased ROM, no pain. Objective Data 08/20/18 04:40 08/20/18 04:40 Immunology Rheumatoid Factor 14 IU/mL (Less than 14) H 08/16/18 14:42 Cycl Citrul Peptide IgG 55 Units (0-19) H 08/16/18 14:42 All other labs normal. Consult Discharge Plan - Plan Instructions: How to Check Your Blood Sugar (GEN), Diabetic Foot Care (GEN), Diabetes Mellitus Type 2 in Adults (GEN), Meal Planning with Diabetes Exchanges (DC) Referrals: Shamir Mckeon MD [Primary Care Provider] - <Oscar Chanel W - Last Filed: 08/20/18 16:55> Date of Encounter: 08/20/18 Exam Vital Signs, Last 4 Hours Temp Pulse Resp BP Pulse Ox 08/20/18 16:21 97.9 F 76 18 129/77 97 Objective Data 08/20/18 04:40 08/20/18 04:40 Immunology Rheumatoid Factor 14 IU/mL (Less than 14) H 08/16/18 14:42 Cycl Citrul Peptide IgG 55 Units (0-19) H 08/16/18 14:42 All other labs normal. - Attending Attestation I examined this patient and my medical decision making was reviewed with the resident physician. I agree with the documented findings, disposition and treatment as described with these exceptions. Mary has improved since her admission. Knee effusion down from yesterday and is having a response to systemic prednisone. Uric acid elevated. CCP elevated but not high titered. At this time, given the more rapid onset this could have been a crystal arthropathy. Though with the CCP positivity, maybe evolving rheumatoid arthritis. I am going to schedule a follow-up in my clinic in 1-2 weeks for a clinical reevaluation and more history with medication changes if needed.
--- NOTE | 2018-08-20 14:57 | Discharge Summary ---
<Julissa Thomason - Last Filed: 08/20/18 15:12> Orders not resulted at time of discharge: Pending orders 08/21/18 04:00 PT/INR [Prothrombin Time INR] [COAG] AM 0400 08/22/18 04:00 PT/INR [Prothrombin Time INR] [COAG] AM 0400 08/23/18 04:00 PT/INR [Prothrombin Time INR] [COAG] AM 0400 Date of Encounter: 08/20/18 - Discharge Diagnosis (1) Generalized weakness Priority: Primary Status: Acute (2) Unable to ambulate Priority: Primary Status: Acute (3) UTI (urinary tract infection) Priority: Secondary Status: Suspected Qualifiers: Urinary tract infection type: acute cystitis Hematuria presence: without hematuria Qualified Code(s): N30.00 - Acute cystitis without hematuria (4) Atrial fibrillation Priority: Secondary Status: Chronic Qualifiers: Atrial fibrillation type: paroxysmal Qualified Code(s): I48.0 - Paroxysmal atrial fibrillation (5) HTN (hypertension) Priority: Secondary Status: Chronic Qualifiers: Hypertension type: essential hypertension Qualified Code(s): I10 - Essential (primary) hypertension (6) HLD (hyperlipidemia) Priority: Secondary Status: Inactive Qualifiers: Hyperlipidemia type: mixed hyperlipidemia Qualified Code(s): E78.2 - Mixed hyperlipidemia (7) DVT prophylaxis Priority: Secondary Status: Acute (8) CKD (chronic kidney disease) stage 3, GFR 30-59 ml/min Priority: Secondary Status: Chronic (9) Drop in hemoglobin Priority: Secondary Status: Acute (10) Sepsis Priority: Secondary Status: Resolved Qualifiers: Sepsis type: sepsis due to unspecified organism Qualified Code(s): A41.9 - Sepsis, unspecified organism (11) Hx of spinal surgery Priority: Secondary Status: Chronic (12) Bilateral ankle pain Priority: Secondary Status: Acute Qualifiers: Chronicity: acute Qualified Code(s): M25.571 - Pain in right ankle and joints of right foot; M25.572 - Pain in left ankle and joints of left foot Hospital course: Ms. Irene is a 77 year old female - Time Spent with Patient Total time spent providing and/or coordinating discharge services: - Discharge Medications Home Medications: Atorvastatin Calcium [Lipitor] 20 mg PO DAILY 08/14/18 [History] Cholecalciferol (D-3) [Vitamin D] 1,000 unit PO DAILY 08/14/18 [History] Diphenhydramine HCl [Ez Nite Sleep] 50 mg PO HS 08/14/18 [History] Furosemide [Lasix] 40 mg PO DAILY 08/14/18 [History] Irbesartan [Avapro] 150 mg PO DAILY 08/14/18 [History] Metoprolol Tartrate [Lopressor] 50 mg PO BID 08/14/18 [History] Multivitamin [One Daily Multivitamin] 1 each PO DAILY 08/14/18 [History] Potassium Chloride [K-Tab ER] 10 meq PO DAILY 08/14/18 [History] Sennosides/Docusate Sodium [Senna-S Tablet] 2 tab PO QPM 08/14/18 [History] Warfarin [Coumadin] 2.5 mg PO DAILY 08/14/18 [History] Allergies/Adverse Reactions: 3 Allergy/AdvReac Type Severity Reaction Status Date / Time [place] Inhibitors Allergy Hypotension Verified 08/14/18 10:50 aspirin [ASA] Allergy See Verified 08/14/18 10:50 Comments methyldopa Allergy Hives Verified 08/14/18 10:50 Triamterene Allergy Chills Verified 08/14/18 10:50 amlodipine AdvReac Swelling Verified 08/14/18 10:50 of Lip/Tongue/Throat atenolol AdvReac Palpitation Verified 08/14/18 10:50 s cefdinir AdvReac Dizziness Verified 08/14/18 10:50 clarithromycin AdvReac Hives Verified 08/14/18 10:50 duloxetine AdvReac See Verified 08/14/18 10:50 Comments enalapril AdvReac Hypotension Verified 08/14/18 10:50 guaifenesin AdvReac Hives Verified 08/14/18 10:50 indapamide AdvReac Hives Verified 08/14/18 14:20 losartan AdvReac Itching Verified 08/14/18 10:50 nifedipine AdvReac Hives Verified 08/14/18 10:50 NSAIDS (Non-Steroidal AdvReac See Verified 08/14/18 14:20 Anti-Inflamma Comments pregabalin [From Lyrica] AdvReac See Verified 08/14/18 10:50 Comments tramadol AdvReac See Verified 08/14/18 10:50 Comments Date of admission: 08/14/18 15:18 Primary care physician: Shamir Mckeon MD Consults: 08/14/18 16:14 Consult to Occupational Therapy [CONS] Routine Comment: Evaluate, develop and implement POC Reason for Consult: Patient reports worsening weakness in bilateral LEs and a heaviness in her feet that prevents her from ambulating safely. 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 Please assess patient for ambulation strength, safety, stability, and possible home assistive/rehabilitation needs for postdischarge planning. Does patient have active BEDREST order?: Yes Is patient medically & hemodynamically stable?: Yes Patient assessed for mobility or mobilized this visit?: No Consult to Poultry Hatchery Man [CONS] Routine Reason for SW Consult: Please assess patient for possible home needs for post -discharge planning. 08/14/18 16:16 Consult to Physical Therapy [CONS] Routine Comment: Evaluate, develop and implement POC Reason for Consult: Patient reports worsening weakness in bilateral LEs and a heaviness in her feet that prevents her from ambulating safely. 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 Please assess patient for ambulation strength, safety, stability, and possible home assistive/rehabilitation needs for postdischarge planning. Does patient have active BEDREST order?: Yes Is patient medically & hemodynamically stable?: Yes Patient assessed for mobility or mobilized this visit?: No 08/14/18 16:21 Consult to Nutrition [CONS] Routine Comment: Chocolate or vanilla Boost or Ensure Consulting Provider: NUTRITION Reason for Dietary Consult: PO Supplementation 08/14/18 16:49 Consult to Nutrition [CONS] Routine Comment: Consulting Provider: NUTRITION Reason for Dietary Consult: MST Score 08/15/18 14:31 Consult to Orthopedic Surgery [CONS] Routine Consulting Provider: [facility] Reason for Consult: lower extremity weakness- hx of spine surgery Time Notified: 14:32 Call Completed: Yes 08/16/18 14:43 Consult to Palliative Care [CONS] Routine Comment: Consulting Provider: [facility] Reason for Consult: Chronic pain, not interested in surgical options Call Completed: Yes 08/19/18 08:03 Consult to Rheumatology [CONS] Routine Consulting Provider: Oscar Chanel Reason for Consult: Generalized weakness, CRP 242, ESR 119, RF 14, CCP pending Call Completed: Yes - Constitutional Vitals: Temp Pulse Resp BP Pulse Ox 97.4 F L 72 17 112/63 98 08/20/18 11:07 08/20/18 11:07 08/20/18 11:07 08/20/18 11:07 08/20/18 11:07 Exam: a - Patient Status Disposition: Transfer SNF Condition: Fair - Discharge Instructions Instructions: How to Check Your Blood Sugar (GEN), Diabetic Foot Care (GEN), Diabetes Mellitus Type 2 in Adults (GEN), Meal Planning with Diabetes Exchanges (DC) Follow Up With: Shamir Mckeon MD [Primary Care Provider] - - Attending Attestation I examined this patient and my medical decision-making was reviewed with the Resident Physician Dr. Yi. I agree with the documented findings, disposition and treatment plan as described except to the extent set forth below. Mrs. Irene is a 77 y/o F admitted here for generalized weakness, bilateral lower extremity multiple joint pain. She also happened to have UTI with the sepsis which was treated with IV antibiotic Rocephin for 5 days. Patient CCP came back as positive suspecting for rheumatoid arthritis. Patient was evaluated by Rheumatology who recommend to finish 5 days course of steroids and then follow up with them as an outpatient. Pt is medically stable to d/c ECF today whenever her insurance prior auth done for ECF. Gen: A, A, O x 3 Chest: Diminished BS b/l, No crackles Heart: S1S2+ No murmurs Ext: Mild tenderness with no swelling in b/l LE joints <Flor Yi - Last Filed: 08/20/18 17:22> - NOTES TO OUTPATIENT PROVIDER Notes to Outpatient Provider: Follow up with Rheumatology for further work up of generalized weakeness, pain in bilateral knees, bilateral ankles, and bilateral calcaneus. Orders not resulted at time of discharge: Pending orders 08/21/18 04:00 PT/INR [Prothrombin Time INR] [COAG] AM 0400 08/22/18 04:00 PT/INR [Prothrombin Time INR] [COAG] AM 0400 08/23/18 04:00 PT/INR [Prothrombin Time INR] [COAG] AM 0400 Date of Encounter: 08/20/18 Time of Encounter: 14:49 - Discharge Diagnosis (1) Generalized weakness Priority: Primary Status: Acute (2) Bilateral ankle pain Priority: Primary Status: Acute Qualifiers: Chronicity: acute Qualified Code(s): M25.571 - Pain in right ankle and joints of right foot; M25.572 - Pain in left ankle and joints of left foot (3) Sepsis Priority: Primary Status: Resolved Qualifiers: Sepsis type: sepsis due to unspecified organism Qualified Code(s): A41.9 - Sepsis, unspecified organism (4) UTI (urinary tract infection) Priority: Primary Status: Suspected Qualifiers: Urinary tract infection type: acute cystitis Hematuria presence: without hematuria Qualified Code(s): N30.00 - Acute cystitis without hematuria (5) Atrial fibrillation Priority: Secondary Status: Chronic Qualifiers: Atrial fibrillation type: paroxysmal Qualified Code(s): I48.0 - Paroxysmal atrial fibrillation (6) HTN (hypertension) Priority: Secondary Status: Chronic Qualifiers: Hypertension type: essential hypertension Qualified Code(s): I10 - Essential (primary) hypertension (7) HLD (hyperlipidemia) Priority: Secondary Status: Inactive Qualifiers: Hyperlipidemia type: mixed hyperlipidemia Qualified Code(s): E78.2 - Mixed hyperlipidemia (8) CKD (chronic kidney disease) stage 3, GFR 30-59 ml/min Priority: Secondary Status: Chronic (9) Hyperglycemia Priority: Secondary Status: Acute Hospital course: is a 77 year old female with a PMhx of AFib, HTN, HLD, and chronic back pain presented to ED with a complaint of generalized weakness, inability to ambulate, left flank pain. Pain has been present and worsening for the previous 5 weeks. She can ambulate a short distance with a walker but is now mostly wheelchair bound. She does report bilateral LE weakness following a remote back surgery. Vitals on presentation significant for mild tachycardia at 103. Labs on presentation significant for mild WBC elevation of 14.0, Cr at baseline, low iron studies, UA negative. Imaging obtained in ED showed diffuse chronic granulomatous disease of liver and spleen, minimal nonobstucting nephrolithiasis on right. Lumbar spine CT showed multilevel lamninectomies and lumbar fusion from L2-L5, foraminal narrowing throughout most of the spine, degenerative changes. Orthopedics was consulted at obtained foot and knee Xrays which were unremarkable except for degenerative changes. Ortho recommended rehab with no immediate indications for surgical interventions. During the course of hospital stay, patient also had complaint of bilateral leg/knee/ankle swelling with pain. Echocardiogram with negative for changes and showed moderate diastolic dysfunction. Right knee Xray shows trace effusion. Labs including uric acid (elevated 9.6), ESR (119), CRP (242), RF (14), Anti-CCP (55 ) obtained. At this point Rheumatology consult was obtained and recommended a 5 day course of prednisone with outpatient follow up for possible crystal arthropathy vs rheumatoid arthritis. She will be discharged to rehabilitation in stable medical condition with improvement of symptoms and close follow up with both PCP, rheumatology. All questions were answered. Discharge discussed with: patient - Time Spent with Patient Total time spent providing and/or coordinating discharge services: Greater than 30 minutes Date of admission: 08/14/18 15:18 Primary care physician: Shamir Mckeon MD Consults: 08/14/18 16:14 Consult to Occupational Therapy [CONS] Routine Comment: Evaluate, develop and implement POC Reason for Consult: Patient reports worsening weakness in bilateral LEs and a heaviness in her feet that prevents her from ambulating safely. 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 Please assess patient for ambulation strength, safety, stability, and possible home assistive/rehabilitation needs for postdischarge planning. Does patient have active BEDREST order?: Yes Is patient medically & hemodynamically stable?: Yes Patient assessed for mobility or mobilized this visit?: No Consult to Poultry Hatchery Man [CONS] Routine Reason for SW Consult: Please assess patient for possible home needs for post -discharge planning. 08/14/18 16:16 Consult to Physical Therapy [CONS] Routine Comment: Evaluate, develop and implement POC Reason for Consult: Patient reports worsening weakness in bilateral LEs and a heaviness in her feet that prevents her from ambulating safely. 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 Please assess patient for ambulation strength, safety, stability, and possible home assistive/rehabilitation needs for postdischarge planning. Does patient have active BEDREST order?: Yes Is patient medically & hemodynamically stable?: Yes Patient assessed for mobility or mobilized this visit?: No 08/14/18 16:21 Consult to Nutrition [CONS] Routine Comment: Chocolate or vanilla Boost or Ensure Consulting Provider: NUTRITION Reason for Dietary Consult: PO Supplementation 08/14/18 16:49 Consult to Nutrition [CONS] Routine Comment: Consulting Provider: NUTRITION Reason for Dietary Consult: MST Score 08/15/18 14:31 Consult to Orthopedic Surgery [CONS] Routine Consulting Provider: [facility] Reason for Consult: lower extremity weakness- hx of spine surgery Time Notified: 14:32 Call Completed: Yes 08/16/18 14:43 Consult to Palliative Care [CONS] Routine Comment: Consulting Provider: [facility] Reason for Consult: Chronic pain, not interested in surgical options Call Completed: Yes 08/19/18 08:03 Consult to Rheumatology [CONS] Routine Consulting Provider: Oscar Chanel Reason for Consult: Generalized weakness, CRP 242, ESR 119, RF 14, CCP pending Call Completed: Yes - Constitutional Vitals: Temp Pulse Resp BP Pulse Ox 97.4 F L 72 17 112/63 98 08/20/18 11:07 08/20/18 11:07 08/20/18 11:07 08/20/18 11:07 08/20/18 11:07 General appearance: Present: cooperative, mild distress (Back pain and weakness) , A&O X 3, pleasant, obese, answers questions appropriately Exam: Gen: Lying comfortably in bed. NAD. HEENT: Normocephalic, atraumatic Cardio: distant heart sounds, no murmurs Resp: CTAB, no wheezing Abd: soft, non-tender, bs noted, no rebound or guarding Extremities: No tenderness in ankles bilaterally today, significantly improved. Able to bend knees bilaterally without significant pain. Psych: Answers questions appropriately. - Patient Status Functional capacity at discharge: wheelchair bound Overall status at discharge: patient is progressing back to baseline - Diet and Activity Activity: as per physical therapy Diet: diabetic diet, low salt diet
[2018-08-20] MEDS: Sennosides/Docusate Sodium TABLET PO SCH (16:33)
[2018-08-20] MEDS ORDERED: *HR* Warfarin 2.5 MG TABLET PO SCH (18:00)
[2018-08-21 05:37] LABS: INR 3.2; Prothrombin Time 35.9 Seconds (9.4-12.1)
[2018-08-21] MEDS: Insulin LISPRO 300 UNITS/3 ML VIAL SQ SCH ×4 (08:51→22:11)
[2018-08-21] MEDS: predniSONE 20 MG TABLET PO SCH (08:58)
[2018-08-21] MEDS: IRBESARTAN 150 MG PO SCH (08:59)
[2018-08-21] MEDS: Multivit/Ca/Min/Fe/FA 1 TAB TABLET PO SCH (08:59)
[2018-08-21] MEDS: Furosemide 40 MG TABLET PO SCH (08:59)
[2018-08-21] MEDS: Cholecalciferol (D-3) 1,000 UNIT TABLET PO SCH (08:59)
--- NOTE | 2018-08-21 11:17 | Internal Med Progress Note ---
Hospitalist Progress Note - Encounter Date of Encounter: 08/21/18 Time of Encounter: 11:15 - Subjective Interval History: Mrs. Irene is a 77 y/o F admitted here for generalized weakness, bilateral lower extremity multiple joint pain. She also happened to have UTI with the sepsis which was treated with IV antibiotic Rocephin for 5 days. Patient CCP came back as positive suspecting for rheumatoid arthritis. Patient was evaluated by Rheumatology who recommend to finish 5 days course of steroids and then follow up with them as an outpatient. Pt is medically stable to d/c ECF waiting on insurance prior auth. No events over night. She denied any CP / SOB. No fever / chills. Joint pains also little better now - Exam Vitals: Temp Pulse Resp BP Pulse Ox 97.9 F 73 18 132/92 97 08/21/18 11:11 08/21/18 11:11 08/21/18 11:11 08/21/18 11:11 08/21/18 11:11 Exam: Gen: Lying comfortably in bed. NAD. HEENT: Normocephalic, atraumatic Cardio: distant heart sounds, no murmurs Resp: Diminished BS b/l, No crackles, no rales, no wheezing Abd: soft, non-tender, bs noted, no rebound or guarding Extremities: No tenderness in ankles bilaterally today, significantly improved. Able to bend knees bilaterally without significant pain. Psych: Answers questions appropriately. - Assessment and Plan (1) Bilateral ankle pain Current Visit: Yes Status: Acute Assessment and Plan: Due to RA /OA flare up CCP came back positive Significantly elevated ESR and CRP Continue short course of steroids Need to f/u with Rheum as an out pt (2) Generalized weakness Current Visit: Yes Status: Acute Assessment and Plan: Due to depression, RA flare up improving Continue steroids (3) UTI (urinary tract infection) Current Visit: Yes Status: Suspected Assessment and Plan: Finished 5 days course of abx Rocephin (4) Atrial fibrillation Current Visit: Yes Status: Chronic Assessment and Plan: rate controlled with Metoprolol on Coumadin for anti coag (5) HTN (hypertension) Current Visit: Yes Status: Chronic Assessment and Plan: stable BP with current meds (6) HLD (hyperlipidemia) Current Visit: Yes Status: Inactive Assessment and Plan: Hx of chronic HLD. Lipid panel in a.m. labs. Continue pts. Lipitor. (7) DVT prophylaxis Current Visit: Yes Status: Acute Assessment and Plan: Continue patient's Coumadin with pharmacy dosing for DVT prophylaxis. Monitor patient for signs of bleeding. (8) CKD (chronic kidney disease) stage 3, GFR 30-59 ml/min Current Visit: Yes Status: Chronic Assessment and Plan: Stable Cr , at baseline (9) Sepsis Current Visit: Yes Status: Resolved Assessment and Plan: Mostly due to UTI Resolved now (10) Hx of spinal surgery Current Visit: No Status: Chronic Assessment and Plan: PT / OT - Time Spent with Patient Total time spent is greater than 50% in coordination of care (as documented) at patient's floor/unit and/or counseling patient: Internal Medicine: Result - Labs CBC & Chem 7: 08/20/18 04:40 08/20/18 04:40 - ABG Interpretation ABG results: PT/INR, D-dimer PT 35.9 Seconds (9.4-12.1) H 08/21/18 05:05 Consult Discharge Plan - Plan Instructions: How to Check Your Blood Sugar (GEN), Diabetic Foot Care (GEN), Diabetes Mellitus Type 2 in Adults (GEN), Meal Planning with Diabetes Exchanges (DC) Referrals: Shamir Mckeon MD [Primary Care Provider] - (1) Bilateral ankle pain Qualifiers: Chronicity: acute Qualified Code(s): M25.571 - Pain in right ankle and joints of right foot; M25.572 - Pain in left ankle and joints of left foot (3) UTI (urinary tract infection) Qualifiers: Urinary tract infection type: acute cystitis Hematuria presence: without hematuria Qualified Code(s): N30.00 - Acute cystitis without hematuria (4) Atrial fibrillation Qualifiers: Atrial fibrillation type: paroxysmal Qualified Code(s): I48.0 - Paroxysmal atrial fibrillation (5) HTN (hypertension) Qualifiers: Hypertension type: essential hypertension Qualified Code(s): I10 - Essential (primary) hypertension (6) HLD (hyperlipidemia) Qualifiers: Hyperlipidemia type: mixed hyperlipidemia Qualified Code(s): E78.2 - Mixed hyperlipidemia (9) Sepsis Qualifiers: Sepsis type: sepsis due to unspecified organism Qualified Code(s): A41.9 - Sepsis, unspecified organism
[2018-08-21] MEDS: Sennosides/Docusate Sodium TABLET PO SCH (18:03)
[2018-08-22 00:34] VITALS: BP 159/69
[2018-08-22 10:56] LABS: Prothrombin Time 34.3 Seconds (9.4-12.1)
--- NOTE | 2018-08-22 12:10 | Internal Med Progress Note ---
Hospitalist Progress Note - Encounter Date of Encounter: 08/22/18 Time of Encounter: 10:00 - Subjective Interval History: Mrs. Irene is a 77 y/o F admitted here for generalized weakness, bilateral lower extremity multiple joint pain. She also happened to have UTI with the sepsis which was treated with IV antibiotic Rocephin for 5 days. Patient CCP ca me back as positive suspecting for rheumatoid arthritis. Patient was evaluated by Rheumatology who recommend to finish 5 days course of steroids and then follow up with them as an outpatient. Pt is medically stable to d/c ECF waiting on insurance prior auth. No events over night. She denied any CP / SOB. No fever / chills. Joint pains also much better now. Resting comfortably in a chair. - Exam Vitals: Temp Pulse Resp BP Pulse Ox 98.3 F 75 16 159/69 93 08/22/18 00:33 08/22/18 00:33 08/22/18 00:33 08/22/18 00:33 08/22/18 00:33 Exam: Gen: Lying comfortably in bed. NAD. HEENT: Normocephalic, atraumatic Cardio: distant heart sounds, no murmurs Resp: Diminished BS b/l, No crackles, no rales, no wheezing Abd: soft, non-tender, bs noted, no rebound or guarding Extremities: No tenderness in ankles bilaterally today, significantly improved. Able to bend knees bilaterally without significant pain. Psych: Answers questions appropriately. - Assessment and Plan (1) Bilateral ankle pain Current Visit: Yes Status: Acute Assessment and Plan: Improving Due to RA /OA flare up CCP came back positive Significantly elevated ESR and CRP Continue short course of steroids Need to f/u with Rheum as an out pt (2) Generalized weakness Current Visit: Yes Status: Acute Assessment and Plan: Due to depression, RA flare up improving Continue steroids (3) UTI (urinary tract infection) Current Visit: Yes Status: Suspected Assessment and Plan: Finished 5 days course of abx Rocephin (4) Atrial fibrillation Current Visit: Yes Status: Chronic Assessment and Plan: rate controlled with Metoprolol on Coumadin for anti coag (5) HTN (hypertension) Current Visit: Yes Status: Chronic Assessment and Plan: stable BP with current meds (6) HLD (hyperlipidemia) Current Visit: Yes Status: Inactive Assessment and Plan: Hx of chronic HLD. Lipid panel in a.m. labs. Continue pts. Lipitor. (7) DVT prophylaxis Current Visit: Yes Status: Acute Assessment and Plan: Continue patient's Coumadin with pharmacy dosing for DVT prophylaxis. Monitor patient for signs of bleeding. (8) CKD (chronic kidney disease) stage 3, GFR 30-59 ml/min Current Visit: Yes Status: Chronic Assessment and Plan: Stable Cr , at baseline (9) Sepsis Current Visit: Yes Status: Resolved Assessment and Plan: Mostly due to UTI Resolved now (10) Hx of spinal surgery Current Visit: No Status: Chronic Assessment and Plan: PT / OT - Time Spent with Patient Total time spent is greater than 50% in coordination of care (as documented) at patient's floor/unit and/or counseling patient: Internal Medicine: Result - Labs CBC & Chem 7: 08/20/18 04:40 08/20/18 04:40 - ABG Interpretation ABG results: PT/INR, D-dimer PT 35.9 Seconds (9.4-12.1) H 08/21/18 05:05 Consult Discharge Plan - Plan Instructions: How to Check Your Blood Sugar (GEN), Diabetic Foot Care (GEN), Diabetes Mellitus Type 2 in Adults (GEN), Meal Planning with Diabetes Exchanges (DC) Referrals: Shamir Mckeon MD [Primary Care Provider] - (1) Bilateral ankle pain Qualifiers: Chronicity: acute Qualified Code(s): M25.571 - Pain in right ankle and joints of right foot; M25.572 - Pain in left ankle and joints of left foot (3) UTI (urinary tract infection) Qualifiers: Urinary tract infection type: acute cystitis Hematuria presence: without hematuria Qualified Code(s): N30.00 - Acute cystitis without hematuria (4) Atrial fibrillation Qualifiers: Atrial fibrillation type: paroxysmal Qualified Code(s): I48.0 - Paroxysmal atrial fibrillation (5) HTN (hypertension) Qualifiers: Hypertension type: essential hypertension Qualified Code(s): I10 - Essential (primary) hypertension (6) HLD (hyperlipidemia) Qualifiers: Hyperlipidemia type: mixed hyperlipidemia Qualified Code(s): E78.2 - Mixed hyperlipidemia (9) Sepsis Qualifiers: Sepsis type: sepsis due to unspecified organism Qualified Code(s): A41.9 - Sepsis, unspecified organism
--- NOTE | 2018-08-22 12:27 | Physician Discharge Referral ---
ExtendedCare Referral Info Transfer To: ECF Provider in Charge after Transfer: PCP Institutional Level of Care: Skilled - Diagnosis (1) Bilateral ankle pain Status: Acute (2) Generalized weakness Status: Acute (3) UTI (urinary tract infection) Status: Suspected (4) Atrial fibrillation Status: Chronic (5) HTN (hypertension) Status: Chronic (6) HLD (hyperlipidemia) Status: Inactive (7) DVT prophylaxis Status: Acute (8) CKD (chronic kidney disease) stage 3, GFR 30-59 ml/min Status: Chronic (9) Sepsis Status: Resolved (10) Hx of spinal surgery Status: Chronic - Transfer Medications Home Medications: Atorvastatin Calcium [Lipitor] 20 mg PO DAILY 08/14/18 [History] Cholecalciferol (D-3) [Vitamin D] 1,000 unit PO DAILY 08/14/18 [History] Diphenhydramine HCl [Ez Nite Sleep] 50 mg PO HS 08/14/18 [History] Furosemide [Lasix] 40 mg PO DAILY 08/14/18 [History] Irbesartan [Avapro] 150 mg PO DAILY 08/14/18 [History] Metoprolol Tartrate [Lopressor] 50 mg PO BID 08/14/18 [History] Multivitamin [One Daily Multivitamin] 1 each PO DAILY 08/14/18 [History] Potassium Chloride [K-Tab ER] 10 meq PO DAILY 08/14/18 [History] Sennosides/Docusate Sodium [Senna-S Tablet] 2 tab PO QPM 08/14/18 [History] Warfarin [Coumadin] 2.5 mg PO DAILY 08/14/18 [History] Allergies/Adverse Reactions: Allergy/AdvReac Type Severity Reaction Status Date / Time CHARLOTTE Inhibitors Allergy Hypotension Verified 08/14/18 10:50 aspirin [ASA] Allergy See Verified 08/14/18 10:50 Comments methyldopa Allergy Hives Verified 08/14/18 10:50 Triamterene Allergy Chills Verified 08/14/18 10:50 amlodipine AdvReac Swelling Verified 08/14/18 10:50 of Lip/Tongue/Throat atenolol AdvReac Palpitation Verified 08/14/18 10:50 s cefdinir AdvReac Dizziness Verified 08/14/18 10:50 clarithromycin AdvReac Hives Verified 08/14/18 10:50 duloxetine AdvReac See Verified 08/14/18 10:50 Comments enalapril AdvReac Hypotension Verified 08/14/18 10:50 guaifenesin AdvReac Hives Verified 08/14/18 10:50 indapamide AdvReac Hives Verified 08/14/18 14:20 losartan AdvReac Itching Verified 08/14/18 10:50 nifedipine AdvReac Hives Verified 08/14/18 10:50 NSAIDS (Non-Steroidal AdvReac See Verified 08/14/18 14:20 Anti-Inflamma Comments pregabalin [From Lyrica] AdvReac See Verified 08/14/18 10:50 Comments tramadol AdvReac See Verified 08/14/18 10:50 Comments - Respiratory Orders Smoking Cessation: Smoking cessation has been advised. For more information, call the [place] Tobacco Quit Line at 3-765-MCUA-NOW. CERTIFICATION: I certify that the transfer of the above named patient to an Extended Care Facility is necessary for the continuing treatment of the diagnosis listed. The above information is true and accurate reflection of patient's current condition. Confidential - Redisclosure prohibited without a patient's written consent.
[2018-08-22] MEDS ORDERED: Furosemide 40 MG TABLET PO ONE (14:56)
[2018-08-22] MEDS ORDERED: predniSONE 20 MG TABLET PO ONE (14:56)
[2018-08-22] MEDS ORDERED: *HR* HYDROcodone/Acet 5/325 mg TABLET PO ONE (14:56)
[2018-08-22] MEDS ORDERED: Multivit/Ca/Min/Fe/FA 1 TAB TABLET PO ONE (14:56)
[2018-08-22] MEDS ORDERED: Cholecalciferol (D-3) 1,000 UNIT TABLET PO ONE (14:56)
[2018-08-22] MEDS ORDERED: *HR* Warfarin 3 MG TABLET PO ONE (18:00)
--- NOTE | 2018-08-28 21:39 | Electrocardiograph Report ---
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
== END 2018-08-22 14:57 ==
LOC: 3NENU 10:33 → EMEROOARM 10:33 → SUATTDRO 15:18 → 3NENU 16:10
PROVIDERS: ADMIT Internal Medicine; ATTEND Family Medicine

== ENCOUNTER 2018-09-27 16:02 | Inpatient (IN) ==
[2018-09-27 16:41] LABS: Basophils # 0.1 K/mcL (0.0-0.2); Basophils % 0.4 %; Eosinophils % 0.2 %; Hematocrit 34.5 % (35.3-44.9); Hemoglobin 10.5 g/dL (11.5-15.4); Immature Granulocytes % 0.6 % (0-4); Lymphocytes # 2.1 K/mcL (0.6-4.6); Lymphocytes % 12.3 %; Mean Corpuscular HGB Conc 30.4 g/dL (31.6-35.5); Mean Corpuscular Hemoglobin 26.3 pg (28.0-33.3); Mean Corpuscular Volume 86.3 fL (83.0-100.0); Mean Platelet Volume 10.3 fL (9.4-12.4); Monocytes % 5.9 %; Neutrophils # 13.6 K/mcL (1.6-8.9); Platelet Count 405 K/mcL (140-400); Red Cell Distribution Width 14.9 % (11.5-14.5); Segmented Neutrophils % 80.6 %
--- NOTE | 2018-09-27 16:46 | Emergency Department Note ---
Disposition Clinical Impression: Weakness, Elevated troponin UTI (urinary tract infection) Qualifiers: Urinary tract infection type: acute cystitis Hematuria presence: without hematuria Qualified Code(s): N30.00 - Acute cystitis without hematuria Sepsis Qualifiers: Sepsis type: sepsis due to unspecified organism Qualified Code(s): A41.9 - Sepsis, unspecified organism Disposition: Admitted As Inpatient Condition: Fair Referrals: NONE,PCP [Primary Care Provider] - Forms: ED Satisfaction Letter, Work/School Release Time of Disposition: 18:42 General Adult HPI - General Chief complaint: ED General Medical Stated complaint: general weakness Time Seen by Provider: 09/27/18 16:08 Source: patient, EMS Mode of arrival: EMS Limitations: no limitations Nursing Notes Reviewed: Yes Vital Signs Reviewed: Yes - History of Present Illness HPI Narrative: 69-year-old female with significant past medical history of atrial fibrillation currently on Coumadin presenting to the emergency department chief complaint weakness. Patient was seen here last month for similar complaints. She was diagnosed with urinary tract infection and sent to [facility] facility after a prolonged admission. According to the patient she has only been out for approximately 1 week. Patient states she has been home for a few days. She is been feeling increased weakness over the past few days. Patient denies any fevers at home. Denies any chest pain, shortness of breath, nausea, vomiting or abdominal pain. Pain Scale: 0 - Related Data Home Medications Medication Instructions Recorded Confirmed Atorvastatin Calcium [Lipitor] 20 mg PO DAILY 08/14/18 08/14/18 Cholecalciferol (D-3) [Vitamin D] 1,000 unit PO DAILY 08/14/18 08/14/18 Diphenhydramine HCl [Ez Nite Sleep] 50 mg PO HS 08/14/18 08/14/18 Furosemide [Lasix] 40 mg PO DAILY 08/14/18 08/14/18 Irbesartan [Avapro] 150 mg PO DAILY 08/14/18 08/14/18 Metoprolol Tartrate [Lopressor] 50 mg PO BID 08/14/18 08/14/18 Multivitamin [One Daily 1 each PO DAILY 08/14/18 08/14/18 Multivitamin] Potassium Chloride [K-Tab ER] 10 meq PO DAILY 08/14/18 08/14/18 Sennosides/Docusate Sodium 2 tab PO QPM 08/14/18 08/14/18 [Senna-S Tablet] Warfarin [Coumadin] 2.5 mg PO DAILY 08/14/18 08/14/18 Allergies Allergy/AdvReac Type Severity Reaction Status Date / Time CHARLOTTE Inhibitors Allergy Hypotension Verified 08/14/18 10:50 aspirin [ASA] Allergy See Verified 08/14/18 10:50 Comments methyldopa Allergy Hives Verified 08/14/18 10:50 Triamterene Allergy Chills Verified 08/14/18 10:50 amlodipine AdvReac Swelling Verified 08/14/18 10:50 of Lip/Tongue/Throat atenolol AdvReac Palpitation Verified 08/14/18 10:50 s cefdinir AdvReac Dizziness Verified 08/14/18 10:50 clarithromycin AdvReac Hives Verified 08/14/18 10:50 duloxetine AdvReac See Verified 08/14/18 10:50 Comments enalapril AdvReac Hypotension Verified 08/14/18 10:50 guaifenesin AdvReac Hives Verified 08/14/18 10:50 indapamide AdvReac Hives Verified 08/14/18 14:20 losartan AdvReac Itching Verified 08/14/18 10:50 nifedipine AdvReac Hives Verified 08/14/18 10:50 NSAIDS (Non-Steroidal AdvReac See Verified 08/14/18 14:20 Anti-Inflamma Comments pregabalin [From Lyrica] AdvReac See Verified 08/14/18 10:50 Comments tramadol AdvReac See Verified 08/14/18 10:50 Comments All systems ED: reviewed and negative except as stated. Constitutional: Reports: weakness. Denies: fever, chills Eyes: Reports: as per HPI ENT ED: Reports: as per HPI Cardiovascular: Denies: chest pain, palpitations, dyspnea on exertion Respiratory: Denies: cough, dyspnea, wheezes Gastrointestinal: Denies: abdominal pain, nausea, vomiting Genitourinary: Reports: as per HPI Musculoskeletal: Reports: as per HPI Integumentary: Reports: as per HPI Neurological: Reports: weakness. Denies: numbness, paresthesias Psychiatric: Reports: as per HPI Endocrine: Reports: as per HPI Hematological/Lymphatic: Reports: as per HPI Allergic/Immunologic: Reports: as per HPI Past Medical History - Past Medical History Attestation: Yes The following information was validated with the patient. Medical history: Reports: atrial fibrillation, hyperlipidemia, hypertension Surgical history: Reports: cholecystectomy Psychiatric history: Reports: no psych history - Social History Smoking Status: Never smoker Smokeless Tobacco Status: No Alcohol use: Reports: none Drug use: Reports: none Physical Exam - General Limitations: no limitations General appearance: alert, in no apparent distress - Head Head exam: atraumatic, normocephalic, normal inspection - Eye Eye exam: Present: normal appearance. Absent: scleral icterus, conjunctival injection - ENT ENT exam: mucous membranes dry - Neck Neck exam: Present: normal inspection, full ROM. Absent: tenderness, meningismus - Chest Chest inspection: Present: normal inspection, symmetric chest wall rise. Absent: tenderness, rash - Respiratory Respiratory exam: Present: normal lung sounds bilaterally. Absent: respiratory distress, wheezes - Cardiovascular Cardiovascular exam: Present: normal rhythm, tachycardia, normal heart sounds - Abdominal Exam Abdominal exam: Present: soft, Non-Tender. Absent: distention, guarding, rebound - Extremities Exam Extremities exam: Present: normal inspection, full ROM - Neurological Exam Neurological exam: Present: alert, oriented X3 - Psychiatric Psychiatric exam: Present: normal affect, normal mood - Skin Skin exam: Present: warm, intact Course Course Narrative: 77-year-old female presenting for generalized weakness. In the room patient is tachycardic but hemodynamically stable. She is alert and oriented 3. Concern for urinary tract infection leading to her weakness at this time. At this time will obtain basic laboratory analysis and a urine analysis. Disposition will most likely be admission the pending results. Patient agrees with this plan. - Reevaluation(s) Reevaluation #1: Patient's laboratory analysis shows leukocytosis with a left shift. Also shows worsening chronic kidney disease and elevated troponin. Patient received aspirin. Throughout this day patient has denied any chest pain or shortness of breath. EKG shows no acute abnormalities. Due to the laboratory findings a CT of the chest, abdomen and pelvis was completed that did not show any acute abnormality. Urinalysis does show infection. A gram of Rocephin will be given. Blood culture sent. Urine culture sent. Concern for sepsis from UTI at this time. At this time will plan to admit the patient for further treatment and evaluation. Patient remains alert and oriented 3 and hemodynamically stable. Patient agrees with this plan. I spoke with the hospitalist contact lens polisher Dr. Tee who agrees to accept the patient at this time. Vital Signs Temperature 100.2 F H 09/27/18 16:12 Pulse Rate 125 09/27/18 16:12 Respiratory Rate 16 09/27/18 16:12 Blood Pressure 105/78 09/27/18 16:12 O2 Sat by Pulse Oximetry 98 09/27/18 16:12 Temperature 100.2 F H 09/27/18 16:12 Pulse Rate 125 09/27/18 16:12 Respiratory Rate 16 09/27/18 16:12 Blood Pressure 105/78 09/27/18 16:12 O2 Sat by Pulse Oximetry 98 09/27/18 16:12 Oxygen Delivery Oxygen Delivery Room Air Medical Decision Making - Lab Data Result diagrams: 09/27/18 16:29 09/27/18 16:29 Lab Results 09/27/18 09/27/18 09/27/18 Range/Units 16:29 16:29 16:30 WBC 16.8 H (4.3-11.1) K/mcL RBC 4.00 (3.82-4.97) M/mcL Hgb 10.5 L (11.5-15.4) g/dL Hct 34.5 L (35.3-44.9) % MCV 86.3 (83.0-100.0) fL MCH 26.3 L (28.0-33.3) pg MCHC 30.4 L (31.6-35.5) g/dL RDW 14.9 H (11.5-14.5) % Plt Count 405 H (140-400) K/mcL MPV 10.3 (9.4-12.4) fL Immature Gran % 0.6 (0-4) % Seg Neutrophils % 80.6 % Lymphocytes % 12.3 % Monocytes % 5.9 % Eosinophils % 0.2 % Basophils % 0.4 % Neutrophils # 13.6 H (1.6-8.9) K/mcL Lymphocytes # 2.1 (0.6-4.6) K/mcL Monocytes # 1.0 (0.0-1.3) K/mcL Eosinophils # 0.0 (0.0-0.6) K/mcL Basophils # 0.1 (0.0-0.2) K/mcL PT 24.2 H (9.4-12.1) Seconds INR 2.1 Sodium 137 (136-145) mEq/L Potassium 4.4 (3.5-5.1) mEq/L Chloride 102 (98-107) mEq/L Carbon Dioxide 22 L (23-29) mEq/L BUN 19 (8-23) mg/dL Creatinine 1.41 H (0.60-1.20) mg/dL Est GFR ( Amer) 44 L (> 60) Est GFR (Non-Af Amer) 36 L (> 60) BUN/Creatinine Ratio 13 (6-26) Glucose 141 H (70-105) mg/dL Calculated Osmolality 289 (280-300) Lactic Acid (0.5-2.2) mmol/L Calcium 8.9 (8.6-10.3) mg/dL Total Bilirubin 0.5 (0.3-1.0) mg/dL AST 64 H (13-39) Units/L ALT 32 (7-52) Units/L Alkaline Phosphatase 67 (34-104) Units/L Troponin I 0.53 H* (< 0.04) ng/mL Serum Total Protein 6.4 (6.4-8.9) g/dL Albumin 3.4 L (3.5-5.7) g/dL Globulin 3.0 (2.4-3.5) g/dL Albumin/Globulin Ratio 1.1 (1.1-2.2) Urine Color (Yellow) Urine Clarity (Clear) Urine pH (5.0-8.0) pH Units Ur Specific [place] (1.010-1.025) Urine Protein (Neg-Trace) mg/dL Urine Glucose (UA) (Normal) mg/dL Urine Ketones (Negative) mg/dL Urine Blood (Negative) Urine Nitrite (Negative) Urine Bilirubin (Negative) Urine Urobilinogen (Normal) mg/dL Ur Leukocyte Esterase (Negative) Urine Microscopic RBC (0-3) per hpf Urine Microscopic WBC (0-3) per hpf Ur Squamous Epith Cells (None-Few) per lpf Urine Bacteria (None-Few) per hpf Hyaline Casts (None-Few) per lpf Ur Culture Indicated? (NO) 09/27/18 09/27/18 Range/Units 16:47 16:50 WBC (4.3-11.1) K/mcL RBC (3.82-4.97) M/mcL Hgb (11.5-15.4) g/dL Hct (35.3-44.9) % MCV (83.0-100.0) fL MCH (28.0-33.3) pg MCHC (31.6-35.5) g/dL RDW (11.5-14.5) % Plt Count (140-400) K/mcL MPV (9.4-12.4) fL Immature Gran % (0-4) % Seg Neutrophils % % Lymphocytes % % Monocytes % % Eosinophils % % Basophils % % Neutrophils # (1.6-8.9) K/mcL Lymphocytes # (0.6-4.6) K/mcL Monocytes # (0.0-1.3) K/mcL Eosinophils # (0.0-0.6) K/mcL Basophils # (0.0-0.2) K/mcL PT (9.4-12.1) Seconds INR Sodium (136-145) mEq/L Potassium (3.5-5.1) mEq/L Chloride (98-107) mEq/L Carbon Dioxide (23-29) mEq/L BUN (8-23) mg/dL Creatinine (0.60-1.20) mg/dL Est GFR ( Amer) (> 60) Est GFR (Non-Af Amer) (> 60) BUN/Creatinine Ratio (6-26) Glucose (70-105) mg/dL Calculated Osmolality (280-300) Lactic Acid 1.8 (0.5-2.2) mmol/L Calcium (8.6-10.3) mg/dL Total Bilirubin (0.3-1.0) mg/dL AST (13-39) Units/L ALT (7-52) Units/L Alkaline Phosphatase (34-104) Units/L Troponin I (< 0.04) ng/mL Serum Total Protein (6.4-8.9) g/dL Albumin (3.5-5.7) g/dL Globulin (2.4-3.5) g/dL Albumin/Globulin Ratio (1.1-2.2) Urine Color Yellow (Yellow) Urine Clarity Cloudy A (Clear) Urine pH 5.0 (5.0-8.0) pH Units Ur Specific [place] 1.014 (1.010-1.025) Urine Protein Negative (Neg-Trace) mg/dL Urine Glucose (UA) Normal (Normal) mg/dL Urine Ketones Negative (Negative) mg/dL Urine Blood Negative (Negative) Urine Nitrite Negative (Negative) Urine Bilirubin Negative (Negative) Urine Urobilinogen Normal (Normal) mg/dL Ur Leukocyte Esterase Large H (Negative) Urine Microscopic RBC 3-5 H (0-3) per hpf Urine Microscopic WBC 50-100 H (0-3) per hpf Ur Squamous Epith Cells Many H (None-Few) per lpf Urine Bacteria Many H (None-Few) per hpf Hyaline Casts Few (None-Few) per lpf Ur Culture Indicated? NO. A (NO) - EKG Data EKG #1 EKG attestation: Yes I reviewed and interpreted this EKG. EKG results narrative: Atrial fibrillation. 127 beats for minute. QRS 99, QTC 448. No sign of acute ST segment elevation or ischemia. Compared to previous EKG completed on 08/14/2018 no significant changes noted
[2018-09-27] MEDS ORDERED: 0.9 % Sodium Chloride 1,000 ML IVC ONE (16:47)
[2018-09-27 16:49] LABS: INR 2.1; Prothrombin Time 24.2 Seconds (9.4-12.1)
[2018-09-27 17:01] LABS: Bilirubin,Urine Negative (Negative); Blood,Urine Negative (Negative); Clarity,Urine Cloudy (Clear); Color,Urine Yellow (Yellow); Glucose,Urine (UA) Normal (Normal); Ketones,Urine Negative (Negative); Leukocyte Esterase,Urine Large (Negative); Nitrite,Urine Negative (Negative); Protein,Urine Negative (Neg-Trace); Specific Gravity,Urine 1.014 (1.010-1.025); Urobilinogen,Urine Normal (Normal)
[2018-09-27 17:03] LABS: Bacteria,Urine Many per hpf (None-Few); Hyaline Casts,Urine Few per lpf (None-Few); Squamous Epithelial Cell,Urine Many per lpf (None-Few); WBC,Urine 50-100 per hpf (0-3)
[2018-09-27] MEDS ORDERED: Isovue-370 500 ML INFUS..BTL IV ONE (17:10)
[2018-09-27] MEDS ORDERED: Aspirin 325 MG TABLET PO ONE (17:14)
[2018-09-27 17:56] LABS: Alanine Aminotransferase 32 Units/L (7-52); Albumin 3.4 g/dL (3.5-5.7); Albumin/Globulin Ratio 1.1 (1.1-2.2); Alkaline Phosphatase 67 Units/L (34-104); Aspartate Amino Transferase 64 Units/L (13-39); BUN/Creatinine Ratio 13 (6-26); Bilirubin,Total 0.5 mg/dL (0.3-1.0); Blood Urea Nitrogen 19 mg/dL (8-23); Calcium 8.9 mg/dL (8.6-10.3); Carbon Dioxide 22 mEq/L (23-29); Chloride 102 mEq/L (98-107); Glucose 141 mg/dL (70-105); Osmolality,Calculated 289 (280-300); Potassium 4.4 mEq/L (3.5-5.1); Sodium 137 mEq/L (136-145); Total Protein 6.4 g/dL (6.4-8.9); eGFR For Non-African Americans 36 (> 60)
[2018-09-27] MEDS ORDERED: cefTRIAXone 1,000 MG in Water for inj. (sterile) 20 ML 10 ML IVP ONE (18:37)
--- NOTE | 2018-09-27 18:52 | Emergency Department Note ---
Disposition Clinical Impression: Weakness, Elevated troponin UTI (urinary tract infection) Qualifiers: Urinary tract infection type: acute cystitis Hematuria presence: without hematuria Qualified Code(s): N30.00 - Acute cystitis without hematuria Sepsis Qualifiers: Sepsis type: sepsis due to unspecified organism Qualified Code(s): A41.9 - Sepsis, unspecified organism Disposition: Admitted As Inpatient Condition: Fair Referrals: NONE,PCP [Primary Care Provider] - Forms: ED Satisfaction Letter, Work/School Release General Adult HPI - General Chief complaint: ED General Medical Stated complaint: general weakness Time Seen by Provider: 09/27/18 16:08 Source: patient, EMS Mode of arrival: EMS Limitations: no limitations - History of Present Illness Pain Scale: 0 - Related Data Home Medications Medication Instructions Recorded Confirmed Atorvastatin Calcium [Lipitor] 20 mg PO DAILY 08/14/18 08/14/18 Cholecalciferol (D-3) [Vitamin D] 1,000 unit PO DAILY 08/14/18 08/14/18 Diphenhydramine HCl [Ez Nite Sleep] 50 mg PO HS 08/14/18 08/14/18 Furosemide [Lasix] 40 mg PO DAILY 08/14/18 08/14/18 Irbesartan [Avapro] 150 mg PO DAILY 08/14/18 08/14/18 Metoprolol Tartrate [Lopressor] 50 mg PO BID 08/14/18 08/14/18 Multivitamin [One Daily 1 each PO DAILY 08/14/18 08/14/18 Multivitamin] Potassium Chloride [K-Tab ER] 10 meq PO DAILY 08/14/18 08/14/18 Sennosides/Docusate Sodium 2 tab PO QPM 08/14/18 08/14/18 [Senna-S Tablet] Warfarin [Coumadin] 2.5 mg PO DAILY 08/14/18 08/14/18 Allergies Allergy/AdvReac Type Severity Reaction Status Date / Time CHARLOTTE Inhibitors Allergy Hypotension Verified 08/14/18 10:50 aspirin [ASA] Allergy See Verified 08/14/18 10:50 Comments methyldopa Allergy Hives Verified 08/14/18 10:50 Triamterene Allergy Chills Verified 08/14/18 10:50 amlodipine AdvReac Swelling Verified 08/14/18 10:50 of Lip/Tongue/Throat atenolol AdvReac Palpitation Verified 08/14/18 10:50 s cefdinir AdvReac Dizziness Verified 08/14/18 10:50 clarithromycin AdvReac Hives Verified 08/14/18 10:50 duloxetine AdvReac See Verified 08/14/18 10:50 Comments enalapril AdvReac Hypotension Verified 08/14/18 10:50 guaifenesin AdvReac Hives Verified 08/14/18 10:50 indapamide AdvReac Hives Verified 08/14/18 14:20 losartan AdvReac Itching Verified 08/14/18 10:50 nifedipine AdvReac Hives Verified 08/14/18 10:50 NSAIDS (Non-Steroidal AdvReac See Verified 08/14/18 14:20 Anti-Inflamma Comments pregabalin [From Lyrica] AdvReac See Verified 08/14/18 10:50 Comments tramadol AdvReac See Verified 08/14/18 10:50 Comments Constitutional: Reports: weakness. Denies: fever, chills Eyes: Reports: as per HPI ENT ED: Reports: as per HPI Cardiovascular: Denies: chest pain, palpitations, dyspnea on exertion Respiratory: Denies: cough, dyspnea, wheezes Gastrointestinal: Denies: abdominal pain, nausea, vomiting Genitourinary: Reports: as per HPI Musculoskeletal: Reports: as per HPI Integumentary: Reports: as per HPI Neurological: Reports: weakness. Denies: numbness, paresthesias Psychiatric: Reports: as per HPI Endocrine: Reports: as per HPI Hematological/Lymphatic: Reports: as per HPI Allergic/Immunologic: Reports: as per HPI Past Medical History - Past Medical History Medical history: Reports: atrial fibrillation, hyperlipidemia, hypertension Surgical history: Reports: cholecystectomy Psychiatric history: Reports: no psych history - Social History Smoking Status: Never smoker Smokeless Tobacco Status: No Alcohol use: Reports: none Drug use: Reports: none Physical Exam - General Limitations: no limitations General appearance: alert, in no apparent distress Course Vital Signs Temperature 100.2 F H 09/27/18 16:12 Pulse Rate 125 09/27/18 16:12 Respiratory Rate 16 09/27/18 16:12 Blood Pressure 105/78 09/27/18 16:12 O2 Sat by Pulse Oximetry 98 09/27/18 16:12 Temperature 100.2 F H 09/27/18 16:12 Pulse Rate 125 09/27/18 16:12 Respiratory Rate 16 09/27/18 16:12 Blood Pressure 105/78 09/27/18 16:12 O2 Sat by Pulse Oximetry 98 09/27/18 16:12 Oxygen Delivery Oxygen Delivery Room Air Medical Decision Making - Lab Data Result diagrams: 09/27/18 16:29 09/27/18 16:29 Lab Results 09/27/18 09/27/18 09/27/18 Range/Units 16:29 16:29 16:29 WBC 16.8 H (4.3-11.1) K/mcL RBC 4.00 (3.82-4.97) M/mcL Hgb 10.5 L (11.5-15.4) g/dL Hct 34.5 L (35.3-44.9) % MCV 86.3 (83.0-100.0) fL MCH 26.3 L (28.0-33.3) pg MCHC 30.4 L (31.6-35.5) g/dL RDW 14.9 H (11.5-14.5) % Plt Count 405 H (140-400) K/mcL MPV 10.3 (9.4-12.4) fL Immature Gran % 0.6 (0-4) % Seg Neutrophils % 80.6 % Lymphocytes % 12.3 % Monocytes % 5.9 % Eosinophils % 0.2 % Basophils % 0.4 % Neutrophils # 13.6 H (1.6-8.9) K/mcL Lymphocytes # 2.1 (0.6-4.6) K/mcL Monocytes # 1.0 (0.0-1.3) K/mcL Eosinophils # 0.0 (0.0-0.6) K/mcL Basophils # 0.1 (0.0-0.2) K/mcL PT (9.4-12.1) Seconds INR Sodium 137 (136-145) mEq/L Potassium 4.4 (3.5-5.1) mEq/L Chloride 102 (98-107) mEq/L Carbon Dioxide 22 L (23-29) mEq/L BUN 19 (8-23) mg/dL Creatinine 1.41 H (0.60-1.20) mg/dL Est GFR ( Amer) 44 L (> 60) Est GFR (Non-Af Amer) 36 L (> 60) BUN/Creatinine Ratio 13 (6-26) Glucose 141 H (70-105) mg/dL Calculated Osmolality 289 (280-300) Lactic Acid (0.5-2.2) mmol/L Calcium 8.9 (8.6-10.3) mg/dL Total Bilirubin 0.5 (0.3-1.0) mg/dL AST 64 H (13-39) Units/L ALT 32 (7-52) Units/L Alkaline Phosphatase 67 (34-104) Units/L Troponin I 0.53 H* (< 0.04) ng/mL B-Natriuretic Peptide 125 H (Less than 100) pg/mL Serum Total Protein 6.4 (6.4-8.9) g/dL Albumin 3.4 L (3.5-5.7) g/dL Globulin 3.0 (2.4-3.5) g/dL Albumin/Globulin Ratio 1.1 (1.1-2.2) Urine Color (Yellow) Urine Clarity (Clear) Urine pH (5.0-8.0) pH Units Ur Specific [place] (1.010-1.025) Urine Protein (Neg-Trace) mg/dL Urine Glucose (UA) (Normal) mg/dL Urine Ketones (Negative) mg/dL Urine Blood (Negative) Urine Nitrite (Negative) Urine Bilirubin (Negative) Urine Urobilinogen (Normal) mg/dL Ur Leukocyte Esterase (Negative) Urine Microscopic RBC (0-3) per hpf Urine Microscopic WBC (0-3) per hpf Ur Squamous Epith Cells (None-Few) per lpf Urine Bacteria (None-Few) per hpf Hyaline Casts (None-Few) per lpf Ur Culture Indicated? (NO) 09/27/18 09/27/18 09/27/18 Range/Units 16:30 16:47 16:50 WBC (4.3-11.1) K/mcL RBC (3.82-4.97) M/mcL Hgb (11.5-15.4) g/dL Hct (35.3-44.9) % MCV (83.0-100.0) fL MCH (28.0-33.3) pg MCHC (31.6-35.5) g/dL RDW (11.5-14.5) % Plt Count (140-400) K/mcL MPV (9.4-12.4) fL Immature Gran % (0-4) % Seg Neutrophils % % Lymphocytes % % Monocytes % % Eosinophils % % Basophils % % Neutrophils # (1.6-8.9) K/mcL Lymphocytes # (0.6-4.6) K/mcL Monocytes # (0.0-1.3) K/mcL Eosinophils # (0.0-0.6) K/mcL Basophils # (0.0-0.2) K/mcL PT 24.2 H (9.4-12.1) Seconds INR 2.1 Sodium (136-145) mEq/L Potassium (3.5-5.1) mEq/L Chloride (98-107) mEq/L Carbon Dioxide (23-29) mEq/L BUN (8-23) mg/dL Creatinine (0.60-1.20) mg/dL Est GFR ( Amer) (> 60) Est GFR (Non-Af Amer) (> 60) BUN/Creatinine Ratio (6-26) Glucose (70-105) mg/dL Calculated Osmolality (280-300) Lactic Acid 1.8 (0.5-2.2) mmol/L Calcium (8.6-10.3) mg/dL Total Bilirubin (0.3-1.0) mg/dL AST (13-39) Units/L ALT (7-52) Units/L Alkaline Phosphatase (34-104) Units/L Troponin I (< 0.04) ng/mL B-Natriuretic Peptide (Less than 100) pg/mL Serum Total Protein (6.4-8.9) g/dL Albumin (3.5-5.7) g/dL Globulin (2.4-3.5) g/dL Albumin/Globulin Ratio (1.1-2.2) Urine Color Yellow (Yellow) Urine Clarity Cloudy A (Clear) Urine pH 5.0 (5.0-8.0) pH Units Ur Specific [place] 1.014 (1.010-1.025) Urine Protein Negative (Neg-Trace) mg/dL Urine Glucose (UA) Normal (Normal) mg/dL Urine Ketones Negative (Negative) mg/dL Urine Blood Negative (Negative) Urine Nitrite Negative (Negative) Urine Bilirubin Negative (Negative) Urine Urobilinogen Normal (Normal) mg/dL Ur Leukocyte Esterase Large H (Negative) Urine Microscopic RBC 3-5 H (0-3) per hpf Urine Microscopic WBC 50-100 H (0-3) per hpf Ur Squamous Epith Cells Many H (None-Few) per lpf Urine Bacteria Many H (None-Few) per hpf Hyaline Casts Few (None-Few) per lpf Ur Culture Indicated? NO. A (NO) Attestation Statement - Attestation Attestation: I examined this patient and my medical decision-making was reviewed with the Resident Physician. I agree with the documented findings, disposition and treatment plan as described except to the extent set forth below. 77 year old female presents with complaints of generalized weaknes with an elevated troponin of .5 and history of UTIs. Patient will be admited to medicine.
[2018-09-27] MEDS ORDERED: Naloxone 0.4 MG/ML INJ IVP PRN (19:29)
[2018-09-27] MEDS ORDERED: 0.9 % Sodium Chloride 1,000 ML IVC SCH (19:30)
[2018-09-27 19:34] LABS: Troponin I Corrected Result ng/mL (< 0.04)
--- NOTE | 2018-09-27 20:05 | Internal Med History&Physical ---
Date of Encounter: 09/28/18 Time of Encounter: 19:57 Internal Medicine - H&P: HPI Chief complaint: Weakness/Swelling History of present illness: Ms. Irene is a 77 year old female with past medical history of hypertension, atrial fibrillation on Coumadin, chronic kidney disease, anemia, history of spinal surgery who presents with generalized weakness. Of note patient was recently discharged from the hospital on August 21 for treatment of generalized weakness, UTI and joint pain. Patient was evaluated by Rheumatology due to suspicion of rheumatoid arthritis given elevated CCP and was treated with a 5 day course of steroids with the instruction to follow-up as outpatient. She again presents from home with similar complaints of generalized weakness but also endorses worsening swelling of her upper and lower extremities for the past 2 days. Patient denies any dyspnea or orthopnea. Patient is wheelchair bound and has been for the past 2 years, however, because of her inability to transition to and from her wheelchair without assistance, her significant other who is in his 80s decided that she should come into the hospital. She also reports subjective fever and chills and urinary incontinence but no dysuria. Denies any nausea, vomiting or flank pain. On initial assessment in the ED patient was seen with hemodynamically stable but tachycardic with a heart rate in the 120s. Laboratory workup was notable for an elevated white count with left shift and a UA suspicious for urinary tract infection. Patient received 1 L bolus of fluids in the ED as well as a loading dose of aspirin due to an initial elevated troponin which was later reported as a lab error by lab staff. EKG was otherwise unremarkable. Patient received 1 dose of ceftriaxone in the ED. Blood and urine cultures are pending. Past Med Surg Social Fam HX - Past Medical History Medical history: atrial fibrillation, hyperlipidemia, hypertension Additional medical history: Neuralgia. Degenerative lumbar spinal stenosis. Osteoarthritis of spine Psychiatric history: no psych history - Past Surgical History Surgical History: cholecystectomy Additional surgical history: back. heel spurs - Social History Smoking Status: Never smoker Smokeless Tobacco Status: No Alcohol use: none Drug use: none - Family History Father Family Member Ethnicity: Non- Living Status: Hx Family Cardiac Disorders: Yes (CAD) Hx Family Cancer: Yes (Colon) Mother Family Member Ethnicity: Non- Living Status: Hx Family Endocrine Disorder: Yes (DM) Hx Family Neurologic Disorders: Yes (Alzheimer's disease) Sister Family Member Ethnicity: Non- Living Status: Hx Family Cancer: Yes (Colon) Internal Medicine - H&P: Meds Atorvastatin Calcium [Lipitor] 20 mg PO DAILY 08/14/18 [History] Cholecalciferol (D-3) [Vitamin D] 500 unit PO BIDWM 08/14/18 [History] Diphenhydramine HCl [Ez Nite Sleep] 50 mg PO HS 08/14/18 [History] Furosemide [Lasix] 40 mg PO DAILY 08/14/18 [History] Irbesartan [Avapro] 150 mg PO DAILY 08/14/18 [History] Metoprolol Tartrate [Lopressor] 50 mg PO BID 08/14/18 [History] Multivitamin [One Daily Multivitamin] 1 each PO DAILY 08/14/18 [History] Potassium Chloride [K-Tab ER] 10 meq PO DAILY 08/14/18 [History] Sennosides/Docusate Sodium [Senna-S Tablet] 2 tab PO QPM 08/14/18 [History] Warfarin [Coumadin] 5 mg PO DAILY 08/14/18 [History] Gabapentin [Neurontin] 100 mg PO BID 09/27/18 [History] Allergy/AdvReac Type Severity Reaction Status Date / Time [place] Inhibitors Allergy Hypotension Verified 08/14/18 10:50 aspirin [ASA] Allergy See Verified 08/14/18 10:50 Comments methyldopa Allergy Hives Verified 08/14/18 10:50 Triamterene Allergy Chills Verified 08/14/18 10:50 amlodipine AdvReac Swelling Verified 08/14/18 10:50 of Lip/Tongue/Throat atenolol AdvReac Palpitation Verified 08/14/18 10:50 s cefdinir AdvReac Dizziness Verified 08/14/18 10:50 clarithromycin AdvReac Hives Verified 08/14/18 10:50 duloxetine AdvReac See Verified 08/14/18 10:50 Comments enalapril AdvReac Hypotension Verified 08/14/18 10:50 guaifenesin AdvReac Hives Verified 08/14/18 10:50 indapamide AdvReac Hives Verified 08/14/18 14:20 losartan AdvReac Itching Verified 08/14/18 10:50 nifedipine AdvReac Hives Verified 08/14/18 10:50 NSAIDS (Non-Steroidal AdvReac See Verified 08/14/18 14:20 Anti-Inflamma Comments pregabalin [From Lyrica] AdvReac See Verified 08/14/18 10:50 Comments tramadol AdvReac See Verified 08/14/18 10:50 Comments All Systems PM: A 10-system review of systems was performed and is negative for pertinent findings except as documented above in the HPI. - Constitutional Constitutional: no chills, no fever(s), no night sweats - EENT Eyes: no change in vision, no discharge, no pain, no photophobia Ears: no ear discharge, no ear pain, no tinnitus Nose, mouth and throat: no dysphagia, no nasal discharge, no neck pain, no sore throat - Cardiovascular Cardiovascular ROS IM: no chest pain, no diaphoresis, no dyspnea, no lightheadedness, no palpitations, no syncope - Respiratory Respiratory: no cough, no dyspnea, no wheezing, no excessive phlegm production - Gastrointestinal Gastrointestinal: no abdominal pain, no diarrhea, no hematemesis, no hematochezia, no melena, no nausea, no vomiting - Genitourinary Genitourinary: no change in urinary stream, no dysuria, no flank pain, no hematuria - Musculoskeletal Musculoskeletal ROS IM: no numbness, no tingling - Integumentary Integumentary IM: no rash, no unusual bruising - Neurological Neurological ROS: no confusion, no convulsions, no focal weakness, no numbness, no tingling, no tremor(s) - Hematologic/Lymphatic Hematologic/Lymphatic: no easy bruising - Constitutional Vitals: Temp Pulse Resp BP Pulse Ox 100.2 F H 116 16 134/81 98 09/27/18 16:12 09/27/18 18:55 09/27/18 18:55 09/27/18 18:55 09/27/18 18:55 Exam: General: Alert and oriented x 3; Lying in bed in no acute distress Skin:Normal color, no rash, no lesions. HEENT:EOM, pupils equal, round and reactive. Cardiovascular:Normal S1 & S2, no rubs, murmurs or gallops. No JVD. Pulse regular. Lungs:Normal breath sounds, no wheezes or crackles. Abdomen:Soft, non-tender, no rigidity. Extremities: No deformity, Right arm bandaged in [place]TE wrap; no pitting edema noted or tenderness, no joint swelling or clubbing. Neurological:Normal cognition and motor skills. Pulses:Carotid and radial pulses normal +2. Rest of the physical exam is non contributory Internal Med - H&P Results - Labs CBC & Chem 7: 09/28/18 03:51 09/28/18 03:51 Labs: Short CBC 09/27/18 Range/Units 16:29 WBC 16.8 H (4.3-11.1) K/mcL Hgb 10.5 L (11.5-15.4) g/dL Hct 34.5 L (35.3-44.9) % Plt Count 405 H (140-400) K/mcL Neutrophils # 13.6 H (1.6-8.9) K/mcL BMP 09/27/18 16:29 Sodium 137 Potassium 4.4 Chloride 102 Carbon Dioxide 22 L BUN 19 Creatinine 1.41 H Glucose 141 H Calcium 8.9 Cardiac Enzymes 09/27/18 09/27/18 Range/Units 16:29 16:29 Troponin I Corrected Result < 0.03 (< 0.04) ng/mL Liver Function 09/27/18 Range/Units 16:29 Total Bilirubin 0.5 (0.3-1.0) mg/dL AST 64 H (13-39) Units/L ALT 32 (7-52) Units/L Alkaline Phosphatase 67 (34-104) Units/L Albumin 3.4 L (3.5-5.7) g/dL Urine 09/27/18 Range/Units 16:50 Urine Color Yellow (Yellow) Urine Clarity Cloudy A (Clear) Urine pH 5.0 (5.0-8.0) pH Units Ur Specific [place] 1.014 (1.010-1.025) Urine Protein Negative (Neg-Trace) mg/dL Urine Glucose (UA) Normal (Normal) mg/dL - Impressions ITS Impressions Chest X-Ray 09/27/18 16:13 IMPRESSION: 1. Low lung volumes. D/ / Steve Price MD / Steve Price MD Interpreting Provider: Steve Price MD Abdomen/Pelvis CTA 09/27/18 17:10 IMPRESSION: 1. No pulmonary embolism or CT evidence of acute abnormality of the thoracic or abdominal aorta. No aneurysm or dissection. 2. Mild cardiomegaly. 3. Indeterminate endometrial canal hypoattenuation should be further evaluated with pelvis ultrasound on a nonemergent basis, possibly related to endometrial hyperplasia or neoplasia. 4. Mild hepatic steatosis. 5. Sequela from old granulomatous disease in the chest and abdomen. D/ / Ye Modi / Ye Modi Interpreting Provider: Ye Modi Chest CTA 09/27/18 17:10 IMPRESSION: 1. No pulmonary embolism or CT evidence of acute abnormality of the thoracic or abdominal aorta. No aneurysm or dissection. 2. Mild cardiomegaly. 3. Indeterminate endometrial canal hypoattenuation should be further evaluated with pelvis ultrasound on a nonemergent basis, possibly related to endometrial hyperplasia or neoplasia. 4. Mild hepatic steatosis. 5. Sequela from old granulomatous disease in the chest and abdomen. D/ / Ye Modi / Ye Modi Interpreting Provider: Ye Modi - Assessment and plan (1) Generalized weakness Current Visit: Yes Status: Acute Assessment and plan: Generalized weakness in the setting of possible urinary traction infection and generalized edema likely secondary to recent course of steroids vs possible CHF -Treat underlying cause. -PT/OT and supportive care. (2) Sepsis Current Visit: Yes Status: Acute Assessment and plan: Patient meets 2 out of 4 SIRS criteria with tachycardia and leukocytosis; fever low-grade; suspicion for sepsis of urologic origin secondary to UTI. Patient received 1 L fluid bolus in the ED. Currently hemodynamically stable. Normal lactic acid. -Continue with IV Abx -Follow-up urine and blood cultures Qualifiers: Sepsis type: sepsis due to unspecified organism Qualified Code(s): A41.9 - Sepsis, unspecified organism (3) UTI (urinary tract infection) Current Visit: Yes Status: Acute Assessment and plan: Large leukocyte esterase. Nitrite negative. Many urine in the bacteria. Patient received ceftriaxone in the ED. -Follow-up urine and blood cultures -Continue antibiotics Qualifiers: Urinary tract infection type: acute cystitis Hematuria presence: without hematuria Qualified Code(s): N30.00 - Acute cystitis without hematuria (4) Atrial fibrillation Current Visit: No Status: Chronic Assessment and plan: History of atrial fibrillation rate controlled on anticoagulation with warfarin. INR therapeutic at 2.1. Heart rate remains somewhat elevated. -Continue telemetry -Continue with warfarin -We will recheck INR in the morning Qualifiers: Atrial fibrillation type: paroxysmal Qualified Code(s): I48.0 - Paroxysmal atrial fibrillation (5) CKD (chronic kidney disease) stage 3, GFR 30-59 ml/min Current Visit: No Status: Chronic Assessment and plan: History of this EKG. Creatinine appears to be at baseline. -We will monitor for now (6) HTN (hypertension) Current Visit: No Status: Chronic Assessment and plan: Blood pressure stable. Resume home antihypertensives and monitor blood pressure. Qualifiers: Hypertension type: essential hypertension Qualified Code(s): I10 - Essential (primary) hypertension (7) DVT prophylaxis Current Visit: No Status: Acute Assessment and plan: Continue warfarin (8) Generalized edema Current Visit: Yes Status: Acute Assessment and plan: Patient reports worsening edema of the upper and lower extremities. Examination of the extremities shows non-pitting edema. Patient recently completed course of steroids. She had Echo done on 08/19/18 which showed an EF of 60-65% with moderate concentric left ventricular hypertrophy and moderate left ventricular diastolic dysfunction. BNP of 125; Lungs otherwise clear. Do not feel need to repeat Echo at this time given that it was recently performed. -will give 40 mg Lasix IVP; Strict I/O's; Cornelius weights - Time Spent With Patient Total time spent is greater than 50% in coordination of care (as documented) at patient's floor/unit and/or counseling patient:
[2018-09-27] MEDS ORDERED: Furosemide 40 MG/4 ML VIAL IVP ONE (21:59)
[2018-09-28] MEDS: Sennosides 8.6 MG TABLET PO SCH ×2 (00:11→21:38)
[2018-09-28 04:31] LABS: Basophils # 0.1 K/mcL (0.0-0.2); Basophils % 0.5 %; Eosinophils % 0.2 %; Hematocrit 31.7 % (35.3-44.9); Hemoglobin 9.9 g/dL (11.5-15.4); Immature Granulocytes % 0.4 % (0-4); Lymphocytes # 2.1 K/mcL (0.6-4.6); Lymphocytes % 15.2 %; Mean Corpuscular HGB Conc 31.2 g/dL (31.6-35.5); Mean Corpuscular Hemoglobin 26.3 pg (28.0-33.3); Mean Corpuscular Volume 84.3 fL (83.0-100.0); Mean Platelet Volume 10.8 fL (9.4-12.4); Monocytes # 1.2 K/mcL (0.0-1.3); Monocytes % 8.7 %; Neutrophils # 10.3 K/mcL (1.6-8.9); Platelet Count 364 K/mcL (140-400); Red Blood Count 3.76 M/mcL (3.82-4.97); Red Cell Distribution Width 14.8 % (11.5-14.5)
[2018-09-28 04:40] LABS: Prothrombin Time 22.5 Seconds (9.4-12.1)
[2018-09-28 04:51] LABS: Albumin 3.3 g/dL (3.5-5.7); Bilirubin,Total 0.6 mg/dL (0.3-1.0); Calcium 8.7 mg/dL (8.6-10.3); Globulin 3.3 g/dL (2.4-3.5); Potassium 3.5 mEq/L (3.5-5.1); Total Protein 6.6 g/dL (6.4-8.9)
[2018-09-28] MEDS: Gabapentin 100 MG CAPSULE PO SCH ×2 (08:45→21:38)
[2018-09-28] MEDS: Cholecalciferol (D-3) 1,000 UNIT TABLET PO SCH ×2 (08:45→17:21)
[2018-09-28] MEDS: Multivit/Ca/Min/Fe/FA 1 TAB TABLET PO SCH (08:45)
[2018-09-28] MEDS: Furosemide 40 MG TABLET PO SCH (08:45)
[2018-09-28] MEDS: IRBESARTAN 150 MG PO SCH (08:46)
[2018-09-28] MEDS ORDERED: cefTRIAXone 1,000 MG in Water for inj. (sterile) 10 ML IVPB SCH (09:00)
[2018-09-28] MEDS ORDERED: *HR* Warfarin 5 MG TABLET PO SCH ×2 (09:00→18:00)
--- NOTE | 2018-09-28 10:32 | Internal Med Progress Note ---
Hospitalist Progress Note - Encounter Date of Encounter: 09/28/18 Time of Encounter: 09:00 - Subjective Interval History: Pt still c/o generalized weakness and feels like whole body swelling. No fever. - Exam Vitals: Temp Pulse Resp BP Pulse Ox 98.2 F 104 18 108/69 96 09/28/18 07:49 09/28/18 07:49 09/28/18 07:49 09/28/18 07:49 09/28/18 07:49 Exam: General: Alert and oriented x 3; Lying in bed in no acute distress Skin:Normal color, no rash, no lesions. HEENT:EOM, pupils equal, round and reactive. Cardiovascular:Normal S1 & S2, no rubs, murmurs or gallops. No JVD. Pulse regular. Lungs:Normal breath sounds, no wheezes or crackles. Abdomen:Soft, non-tender, no rigidity. Extremities: No deformity, Right arm bandaged in [place] wrap; no pitting edema noted or tenderness, no joint swelling or clubbing. Neurological:Normal cognition and motor skills. Pulses:Carotid and radial pulses normal +2. 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 -PT/OT and supportive care. -Need ECF discharge, SW is consulted (2) Atrial fibrillation Current Visit: No Status: Chronic Assessment and Plan: History of atrial fibrillation rate controlled on anticoagulation with warfarin. INR therapeutic at 2.1. Heart rate remains somewhat elevated. -Continue telemetry -Continue with warfarin -We will recheck INR in the morning -HR is at high side, increase metoprolol dose, closely monitor BP. (3) HTN (hypertension) Current Visit: No Status: Chronic Assessment and Plan: Blood pressure stable. Resume home antihypertensives and monitor blood pressure. (4) DVT prophylaxis Current Visit: No Status: Acute Assessment and Plan: Continue warfarin (5) CKD (chronic kidney disease) stage 3, GFR 30-59 ml/min Current Visit: No Status: Chronic Assessment and Plan: History of CKD. Creatinine appears to be at baseline. -We will monitor for now, avoid the nephrotoxic medications (6) UTI (urinary tract infection) Current Visit: Yes Status: Acute Assessment and Plan: Large leukocyte esterase. Nitrite negative. Many urine in the bacteria. Patient received ceftriaxone in the ED. -Follow-up urine and blood cultures -Continue antibiotics (7) Sepsis Current Visit: Yes Status: Acute Assessment and Plan: Patient meets 2 out of 4 SIRS criteria with tachycardia and leukocytosis; fever low-grade; suspicion for sepsis of urologic origin secondary to UTI. Patient received 1 L fluid bolus in the ED. Currently hemodynamically stable. Normal lactic acid. -Continue with IV Abx -Follow-up urine and blood cultures (8) Generalized edema Current Visit: Yes Status: Acute Assessment and Plan: Patient reports subjective edema of the upper and lower extremities. Examination of the extremities shows non-pitting edema. Patient recently completed course of steroids. She had Echo done on 08/19/18 which showed an EF of 60-65% with moderate concentric left ventricular hypertrophy and moderate left ventricular diastolic dysfunction. BNP of 125; Lungs otherwise clear. Do not feel need to repeat Echo at this time given that it was recently performed. -Cont home dose po lasix Strict I/O's; Cornelius weights DVT Prophylaxis: On coumadin - Time Spent with Patient Total time spent is greater than 50% in coordination of care (as documented) at patient's floor/unit and/or counseling patient: 30 min 25 - 35 minutes Plan of Care Discussed with: patient Internal Medicine: Result - Labs CBC & Chem 7: 09/28/18 03:51 09/28/18 03:51 Labs: Short CBC 09/27/18 09/28/18 Range/Units 16:29 03:51 WBC 16.8 H 13.7 H (4.3-11.1) K/mcL Hgb 10.5 L 9.9 L (11.5-15.4) g/dL Hct 34.5 L 31.7 L (35.3-44.9) % Plt Count 405 H 364 (140-400) K/mcL Neutrophils # 13.6 H 10.3 H (1.6-8.9) K/mcL BMP 09/27/18 09/28/18 16:29 03:51 Sodium 137 138 Potassium 4.4 3.5 Chloride 102 101 Carbon Dioxide 22 L 25 BUN 19 18 Creatinine 1.41 H 1.24 H Glucose 141 H 134 H Calcium 8.9 8.7 Cardiac Enzymes 09/27/18 09/27/18 Range/Units 16:29 16:29 Troponin I Corrected Result < 0.03 (< 0.04) ng/mL Liver Function 09/27/18 09/28/18 Range/Units 16:29 03:51 Total Bilirubin 0.5 0.6 (0.3-1.0) mg/dL AST 64 H 28 (13-39) Units/L ALT 32 29 (7-52) Units/L Alkaline Phosphatase 67 81 (34-104) Units/L Albumin 3.4 L 3.3 L (3.5-5.7) g/dL Urine 09/27/18 Range/Units 16:50 Urine Color Yellow (Yellow) Urine Clarity Cloudy A (Clear) Urine pH 5.0 (5.0-8.0) pH Units Ur Specific [place] 1.014 (1.010-1.025) Urine Protein Negative (Neg-Trace) mg/dL Urine Glucose (UA) Normal (Normal) mg/dL - ABG Interpretation ABG results: PT/INR, D-dimer PT 22.5 Seconds (9.4-12.1) H 09/28/18 03:51 - Impressions Impressions Chest X-Ray 09/27/18 16:13 IMPRESSION: 1. Low lung volumes. D/ / Steve Price MD / Steve Price MD Interpreting Provider: Steve Price MD Abdomen/Pelvis CTA 09/27/18 17:10 IMPRESSION: 1. No pulmonary embolism or CT evidence of acute abnormality of the thoracic or abdominal aorta. No aneurysm or dissection. 2. Mild cardiomegaly. 3. Indeterminate endometrial canal hypoattenuation should be further evaluated with pelvis ultrasound on a nonemergent basis, possibly related to endometrial hyperplasia or neoplasia. 4. Mild hepatic steatosis. 5. Sequela from old granulomatous disease in the chest and abdomen. D/ / Ye Modi / Ye Modi Interpreting Provider: Ye Modi Chest CTA 09/27/18 17:10 IMPRESSION: 1. No pulmonary embolism or CT evidence of acute abnormality of the thoracic or abdominal aorta. No aneurysm or dissection. 2. Mild cardiomegaly. 3. Indeterminate endometrial canal hypoattenuation should be further evaluated with pelvis ultrasound on a nonemergent basis, possibly related to endometrial hyperplasia or neoplasia. 4. Mild hepatic steatosis. 5. Sequela from old granulomatous disease in the chest and abdomen. D/ / Ye Modi / Ye Modi Interpreting Provider: Ye Modi Consult Discharge Plan - Plan Referrals: NONE,PCP [Primary Care Provider] - (2) Atrial fibrillation Qualifiers: Atrial fibrillation type: paroxysmal Qualified Code(s): I48.0 - Paroxysmal atrial fibrillation (3) HTN (hypertension) Qualifiers: Hypertension type: essential hypertension Qualified Code(s): I10 - Essential (primary) hypertension (6) UTI (urinary tract infection) Qualifiers: Urinary tract infection type: acute cystitis Hematuria presence: without hematuria Qualified Code(s): N30.00 - Acute cystitis without hematuria (7) Sepsis Qualifiers: Sepsis type: sepsis due to unspecified organism Qualified Code(s): A41.9 - Sepsis, unspecified organism
[2018-09-28] MEDS: cefTRIAXone 1,000 MG in Water for inj. (sterile) 10 ML IVPB SCH (10:59)
[2018-09-28] MEDS: Sennosides/Docusate Sodium TABLET PO SCH (17:21)
[2018-09-28] MEDS: *HR* Metoprolol 5 MG/5 ML VIAL IVP PRN (18:57)
[2018-09-29 06:59] LABS: Calcium 8.5 mg/dL (8.6-10.3); Potassium 3.6 mEq/L (3.5-5.1)
[2018-09-29 07:03] LABS: Basophils # 0.1 K/mcL (0.0-0.2); Basophils % 0.5 %; Eosinophils # 0.1 K/mcL (0.0-0.6); Eosinophils % 0.7 %; Hematocrit 29.4 % (35.3-44.9); Immature Granulocytes % 0.4 % (0-4); Lymphocytes # 2.1 K/mcL (0.6-4.6); Lymphocytes % 15.9 %; Mean Corpuscular HGB Conc 30.6 g/dL (31.6-35.5); Mean Corpuscular Hemoglobin 26.1 pg (28.0-33.3); Mean Corpuscular Volume 85.2 fL (83.0-100.0); Mean Platelet Volume 10.7 fL (9.4-12.4); Monocytes # 0.9 K/mcL (0.0-1.3); Monocytes % 6.7 %; Neutrophils # 10.1 K/mcL (1.6-8.9); Platelet Count 355 K/mcL (140-400); Red Blood Count 3.45 M/mcL (3.82-4.97); Red Cell Distribution Width 14.8 % (11.5-14.5); Segmented Neutrophils % 75.8 %
[2018-09-29] MEDS: Multivit/Ca/Min/Fe/FA 1 TAB TABLET PO SCH (07:52)
[2018-09-29] MEDS: Furosemide 40 MG TABLET PO SCH (07:52)
[2018-09-29] MEDS: Gabapentin 100 MG CAPSULE PO SCH ×2 (07:52→21:31)
[2018-09-29] MEDS: Cholecalciferol (D-3) 1,000 UNIT TABLET PO SCH ×2 (07:52→17:48)
[2018-09-29] MEDS: IRBESARTAN 150 MG PO SCH (07:54)
--- NOTE | 2018-09-29 10:17 | Internal Med Progress Note ---
Hospitalist Progress Note - Encounter Date of Encounter: 09/29/18 Time of Encounter: 09:00 - Subjective Interval History: Pt still c/o generalized weakness, c/o joints pain all over body and feels like whole body swelling. No fever. - Exam Vitals: Temp Pulse Resp BP Pulse Ox 99.1 F 116 18 158/83 95 09/29/18 06:51 09/29/18 06:51 09/29/18 06:51 09/29/18 06:51 09/29/18 06:51 Exam: General: Alert and oriented x 3; Lying in bed in no acute distress Skin:Normal color, no rash, no lesions. HEENT:EOM, pupils equal, round and reactive. Cardiovascular:Normal S1 & S2, no rubs, murmurs or gallops. No JVD. Pulse regular. Lungs:Normal breath sounds, no wheezes or crackles. Abdomen:Soft, non-tender, no rigidity. Extremities: No deformity, no pitting edema noted or tenderness, no joint swelling or clubbing. Left arm ROM limited due to pain Neurological:Normal cognition and motor skills. Pulses:Carotid and radial pulses normal +2. Rest of the physical exam is non contributory - Assessment and Plan (1) Generalized weakness Current Visit: Yes Status: Acute Assessment and Plan: Generalized weakness in the setting of possible urinary traction infection and half-way arthritis with wheel chair bound -Treat underlying cause. -PT/OT and supportive care. -Need ECF discharge, SW is consulted (2) Atrial fibrillation Current Visit: No Status: Chronic Assessment and Plan: History of atrial fibrillation rate controlled on anticoagulation with warfarin. INR therapeutic at 2.1. Heart rate remains somewhat elevated. -Continue telemetry -Continue with warfarin -F/U INR every morning -HR is at high side, further increase metoprolol dose to 100mg bid, as BP tolerate. (3) HTN (hypertension) Current Visit: No Status: Chronic Assessment and Plan: Blood pressure stable. Resume home antihypertensives and monitor blood pressure. (4) DVT prophylaxis Current Visit: No Status: Acute Assessment and Plan: Continue warfarin (5) CKD (chronic kidney disease) stage 3, GFR 30-59 ml/min Current Visit: No Status: Chronic Assessment and Plan: History of CKD. Creatinine appears to be at baseline. -We will monitor for now, avoid the nephrotoxic medications (6) UTI (urinary tract infection) Current Visit: Yes Status: Acute Assessment and Plan: Large leukocyte esterase. Nitrite negative. Many urine in the bacteria. Patient received ceftriaxone in the ED. -Urine culture no growth and blood cultures negative so far. Pt c/o dysuria -Continue antibiotics to finish 5 day course (7) Sepsis Current Visit: Yes Status: Acute Assessment and Plan: Patient meets 2 out of 4 SIRS criteria with tachycardia and leukocytosis; fever low-grade; suspicion for sepsis of urologic origin secondary to UTI. Patient received 1 L fluid bolus in the ED. Currently hemodynamically stable. Normal lactic acid. -Continue with IV Abx -Urine culture negative and blood cultures negative so far (8) Generalized edema Current Visit: Yes Status: Acute Assessment and Plan: Patient reports subjective edema of the upper and lower extremities. Examination of the extremities shows non-pitting edema. Patient recently completed course of steroids. She had Echo done on 08/19/18 which showed an EF of 60-65% with moderate concentric left ventricular hypertrophy and moderate left ventricular diastolic dysfunction. BNP of 125; Lungs otherwise clear. Do not feel need to repeat Echo at this time given that it was recently performed. -Cont home dose po lasix Strict I/O's; Cornelius weights (9) Lesion of endometrium Current Visit: Yes Status: Acute Assessment and Plan: CT abd suspect endometrial lesion, will order pelvis US for further evaluation. DVT Prophylaxis: On coumadin. - Time Spent with Patient Total time spent is greater than 50% in coordination of care (as documented) at patient's floor/unit and/or counseling patient: 30 min 25 - 35 minutes Plan of Care Discussed with: patient Internal Medicine: Result - Labs CBC & Chem 7: 09/29/18 06:15 09/29/18 06:15 Labs: Short CBC 09/29/18 Range/Units 06:15 WBC 13.3 H (4.3-11.1) K/mcL Hgb 9.0 L (11.5-15.4) g/dL Hct 29.4 L (35.3-44.9) % Plt Count 355 (140-400) K/mcL Neutrophils # 10.1 H (1.6-8.9) K/mcL BMP 09/29/18 06:15 Sodium 138 Potassium 3.6 Chloride 100 Carbon Dioxide 28 BUN 19 Creatinine 1.38 H Glucose 121 H Calcium 8.5 L - ABG Interpretation ABG results: PT/INR, D-dimer PT 22.5 Seconds (9.4-12.1) H 09/28/18 03:51 Consult Discharge Plan - Plan Referrals: NONE,PCP [Primary Care Provider] - (2) Atrial fibrillation Qualifiers: Atrial fibrillation type: paroxysmal Qualified Code(s): I48.0 - Paroxysmal atrial fibrillation (3) HTN (hypertension) Qualifiers: Hypertension type: essential hypertension Qualified Code(s): I10 - Essential (primary) hypertension (6) UTI (urinary tract infection) Qualifiers: Urinary tract infection type: acute cystitis Hematuria presence: without hematuria Qualified Code(s): N30.00 - Acute cystitis without hematuria (7) Sepsis Qualifiers: Sepsis type: sepsis due to unspecified organism Qualified Code(s): A41.9 - Sepsis, unspecified organism
[2018-09-29] MEDS: cefTRIAXone 1,000 MG in Water for inj. (sterile) 10 ML IVPB SCH (10:29)
[2018-09-29] MEDS: Sennosides/Docusate Sodium TABLET PO SCH (17:48)
[2018-09-29] MEDS ORDERED: Warfarin perPT PO PRN (18:00)
[2018-09-29] MEDS ORDERED: *HR* Warfarin 5 MG TABLET PO ONE (18:00)
[2018-09-29] MEDS: *HR* Metoprolol 5 MG/5 ML VIAL IVP PRN (18:55)
[2018-09-29] MEDS: Sennosides 8.6 MG TABLET PO SCH (21:31)
[2018-09-30] MEDS ORDERED: Acetaminophen 325 MG TABLET PO PRN (00:35)
[2018-09-30 04:36] LABS: Basophils # 0.1 K/mcL (0.0-0.2); Basophils % 0.7 %; Eosinophils # 0.1 K/mcL (0.0-0.6); Eosinophils % 0.7 %; Hematocrit 29.8 % (35.3-44.9); Hemoglobin 9.1 g/dL (11.5-15.4); Immature Granulocytes % 0.5 % (0-4); Lymphocytes # 2.7 K/mcL (0.6-4.6); Lymphocytes % 19.7 %; Mean Corpuscular HGB Conc 30.5 g/dL (31.6-35.5); Mean Corpuscular Hemoglobin 26.2 pg (28.0-33.3); Mean Corpuscular Volume 85.9 fL (83.0-100.0); Mean Platelet Volume 10.4 fL (9.4-12.4); Monocytes # 1.1 K/mcL (0.0-1.3); Monocytes % 7.9 %; Neutrophils # 9.7 K/mcL (1.6-8.9); Platelet Count 418 K/mcL (140-400); Red Blood Count 3.47 M/mcL (3.82-4.97); Red Cell Distribution Width 14.8 % (11.5-14.5); Segmented Neutrophils % 70.5 %
[2018-09-30 04:40] LABS: INR 2.5; Prothrombin Time 27.9 Seconds (9.4-12.1)
[2018-09-30 04:54] LABS: Calcium 8.5 mg/dL (8.6-10.3); Potassium 3.8 mEq/L (3.5-5.1)
[2018-09-30] MEDS: Multivit/Ca/Min/Fe/FA 1 TAB TABLET PO SCH (09:27)
[2018-09-30] MEDS: Gabapentin 100 MG CAPSULE PO SCH ×2 (09:27→20:15)
[2018-09-30] MEDS: Cholecalciferol (D-3) 1,000 UNIT TABLET PO SCH (09:27)
[2018-09-30] MEDS: Furosemide 40 MG TABLET PO SCH (09:27)
[2018-09-30] MEDS: cefTRIAXone 1,000 MG in Water for inj. (sterile) 10 ML IVPB SCH (09:28)
[2018-09-30] MEDS: IRBESARTAN 150 MG PO SCH (09:29)
--- NOTE | 2018-09-30 12:38 | Internal Med Progress Note ---
Hospitalist Progress Note - Encounter Date of Encounter: 09/30/18 Time of Encounter: 09:00 - Subjective Interval History: Pt still c/o generalized weakness, c/o joints pain all over body and feels like whole body swelling. No fever. - Exam Vitals: Temp Pulse Resp BP Pulse Ox 98.6 F 91 16 104/72 95 09/30/18 10:58 09/30/18 10:58 09/30/18 10:58 09/30/18 10:58 09/30/18 10:58 Exam: General: Alert and oriented x 3; Lying in bed in no acute distress Skin:Normal color, no rash, no lesions. HEENT:EOM, pupils equal, round and reactive. Cardiovascular:Normal S1 & S2, no rubs, murmurs or gallops. No JVD. Pulse regular. Lungs:Normal breath sounds, no wheezes or crackles. Abdomen:Soft, non-tender, no rigidity. Extremities: No deformity, no pitting edema noted or tenderness, no joint swelling or clubbing. Left arm and thumb ROM limited due to pain Neurological:Normal cognition and motor skills. Pulses:Carotid and radial pulses normal +2. Rest of the physical exam is non contributory - Assessment and Plan (1) Generalized weakness Current Visit: Yes Status: Acute Assessment and Plan: Generalized weakness in the setting of possible urinary traction infection and lobsterman arthritis with wheel chair bound -Treat underlying cause. -PT/OT and supportive care. -Need ECF discharge, SW is consulted (2) Atrial fibrillation Current Visit: No Status: Chronic Assessment and Plan: History of atrial fibrillation rate controlled on anticoagulation with warfarin. INR therapeutic at 2.1. Heart rate remains somewhat elevated. -Continue telemetry -Continue with warfarin -F/U INR every morning -HR is better controlled after metoprolol was increased to 100mg bid, BP tolerates. (3) HTN (hypertension) Current Visit: No Status: Chronic Assessment and Plan: Blood pressure stable. Hold ARB now b/o slightly worsening renal function and BP is not high (metoprolol dose increased). (4) DVT prophylaxis Current Visit: No Status: Acute Assessment and Plan: Continue warfarin (5) CKD (chronic kidney disease) stage 3, GFR 30-59 ml/min Current Visit: No Status: Chronic Assessment and Plan: History of CKD. Creatinine appears to be at baseline. -We will monitor for now, avoid the nephrotoxic medications (6) UTI (urinary tract infection) Current Visit: Yes Status: Acute Assessment and Plan: Large leukocyte esterase. Nitrite negative. Many urine in the bacteria. Patient received ceftriaxone in the ED. -Urine culture no growth and blood cultures negative so far. Pt c/o dysuria but improved -Continue antibiotics to finish 5 day course (7) Sepsis Current Visit: Yes Status: Resolved Assessment and Plan: Patient meets 2 out of 4 SIRS criteria with tachycardia and leukocytosis; fever low-grade; suspicion for sepsis of urologic origin secondary to UTI. Patient received 1 L fluid bolus in the ED. Currently hemodynamically stable. Normal lactic acid. -Continue with IV Abx -Urine culture negative and blood cultures negative so far (8) Generalized edema Current Visit: Yes Status: Acute Assessment and Plan: Patient reports subjective edema of the upper and lower extremities. Examination of the extremities shows non-pitting edema. Patient recently completed course of steroids. She had Echo done on 08/19/18 which showed an EF of 60-65% with moderate concentric left ventricular hypertrophy and moderate left ventricular diastolic dysfunction. BNP of 125; Lungs otherwise clear. Do not feel need to repeat Echo at this time given that it was recently performed. -Cont home dose po lasix Strict I/O's; Cornelius weights (9) Lesion of endometrium Current Visit: Yes Status: Acute Assessment and Plan: CT abd suspect endometrial lesion, will order pelvis US for further evaluation. (10) Leukocytosis Current Visit: Yes Status: Acute Assessment and Plan: Persist mild leukocytosis, patient has rheumatoid arthritis. Probably due to inflammatory disease. Will consult rheumatology for joint pain and arthritis. (11) Rheumatoid arthritis Current Visit: Yes Status: Chronic Assessment and Plan: Patient has anti-CCP positive on last admission. Complain of whole-body joint pain. Consider RA. Patient said last time steroid treatment makes her whole- body swelling. Will consult rheumatology for further management. DVT Prophylaxis: On Coumadin - Time Spent with Patient Total time spent is greater than 50% in coordination of care (as documented) at patient's floor/unit and/or counseling patient: 30 minutes 25 - 35 minutes Plan of Care Discussed with: patient Internal Medicine: Result - Labs CBC & Chem 7: 09/30/18 04:20 09/30/18 04:20 Labs: Short CBC 09/30/18 Range/Units 04:20 WBC 13.7 H (4.3-11.1) K/mcL Hgb 9.1 L (11.5-15.4) g/dL Hct 29.8 L (35.3-44.9) % Plt Count 418 H (140-400) K/mcL Neutrophils # 9.7 H (1.6-8.9) K/mcL BMP 09/30/18 04:20 Sodium 139 Potassium 3.8 Chloride 101 Carbon Dioxide 29 BUN 24 H Creatinine 1.83 H Glucose 134 H Calcium 8.5 L - ABG Interpretation ABG results: PT/INR, D-dimer PT 27.9 Seconds (9.4-12.1) H 09/30/18 04:20 Consult Discharge Plan - Plan Referrals: NONE,PCP [Primary Care Provider] - (2) Atrial fibrillation Qualifiers: Atrial fibrillation type: paroxysmal Qualified Code(s): I48.0 - Paroxysmal atrial fibrillation (3) HTN (hypertension) Qualifiers: Hypertension type: essential hypertension Qualified Code(s): I10 - Essential (primary) hypertension (6) UTI (urinary tract infection) Qualifiers: Urinary tract infection type: acute cystitis Hematuria presence: without hematuria Qualified Code(s): N30.00 - Acute cystitis without hematuria (7) Sepsis Qualifiers: Sepsis type: sepsis due to unspecified organism Qualified Code(s): A41.9 - Sepsis, unspecified organism (10) Leukocytosis Qualifiers: Leukocytosis type: leukemoid reaction Qualified Code(s): D72.823 - Leukemoid reaction (11) Rheumatoid arthritis Qualifiers: Rheumatoid arthritis location: hand Laterality: left
--- NOTE | 2018-09-30 14:55 | Rheumatology Consult Note ---
<Nate Moraes S - Last Filed: 09/30/18 15:10> Date of Encounter: 09/30/18 Time of Encounter: 12:00 Rheumatology Assess and Plan (1) Inflammatory arthritis Current Visit: Yes Status: Acute Possibly due to gout attack vs rheumatoid arthritis Patient had hyperuricemia of 9.6 during last admission (Aug 2018) Will repeat uric acid Anti-CCP elevated to 55 during last admission (Aug 2018) Will start allopurinol (patient on coumadin with INR of 2.5) Will start short course of prednisone (2) Hyperuricemia Current Visit: Yes Status: Acute Had uric acid of 9.6 during last admission (Aug 2018) Repeat uric acid Will start patient on allopurinol and a short course of steroids to prevent flares caused by allopurinol (3) Cyclic citrullinated peptide (CCP) antibody positive Current Visit: Yes Status: Acute Patient with elevated anti-CCP on last admission (Aug 2018) (4) CKD (chronic kidney disease) Current Visit: Yes Status: Acute Management per primary team Patient's Cr 1.83, up from 1.41 on admission Qualifiers: Chronic kidney disease stage: stage 3 (moderate) Qualified Code(s): N18.3 - Chronic kidney disease, stage 3 (moderate) Rheumatology HPI Consult date: 09/30/18 Requesting physician: Maty Michel Consult reason: Positive anti-CCP in the setting of joint pain Chief complaint: Joint pain and generalized weakness History of present illness: Ms. Irene is a 77 year old female with PMHx of HTN, afib on Coumadin, CKD, and s/p lumbar spinal surgery presents to [facility] on 09/27 for generalized weakness and UE + LE swelling for the past two years. Patient was recently admitted for similar complaints in August and was found to have an elevated anti-CCP. At that time, rheumatology was consulted and prescribed a 5 day course of prednisone. In ED, patient was tachycardic, temp of 100.2, leukocytosis of 16.8, and a UA concerning for UTI. She was started on ceftriaxone. Rheumatology was consulted for persistent joint pain/swelling with possibility of auto-immunological process. Patient seen and examined today. She states her pain is mainly in her left thumb, left shoulder, right knee, and ankles bilaterally. She has been wheelchair-bound and bed-bound for the past 2 years because she is weak and states it's too painful to walk. Patient states the base of her left thumb feels swollen, and is painful with movement. It has gradually gotten worse over the past couple weeks. Her left shoulder and right pain have also progressed over the past few weeks and are worse with movement. Patient's ankle pain and swelling have been persistent. Patient states she did not take her course of prednisone because she was afraid it would cause her to gain weight. Patient denies CP, SOB, abdominal pain, nausea, vomiting, changes in bowel habits, burning with urination, increased/decreased urination, numbness/tingling. Past Med Surg Social Fam HX - Past Medical History Medical history: atrial fibrillation, hyperlipidemia, hypertension Additional medical history: Neuralgia. Degenerative lumbar spinal stenosis. Osteoarthritis of spine Psychiatric history: no psych history - Past Surgical History Surgical History: cholecystectomy Additional surgical history: back. heel spurs - Social History Smoking Status: Never smoker Smokeless Tobacco Status: No Alcohol use: none Drug use: none - Family History Father Family Member Ethnicity: Non- Living Status: Hx Family Cardiac Disorders: Yes (CAD) Hx Family Cancer: Yes (Colon) Mother Family Member Ethnicity: Non- Living Status: Hx Family Endocrine Disorder: Yes (DM) Hx Family Neurologic Disorders: Yes (Alzheimer's disease) Sister Family Member Ethnicity: Non- Living Status: Hx Family Cancer: Yes (Colon) Medications and Allergies RX: Atorvastatin Calcium [Lipitor] 20 mg PO DAILY 08/14/18 [History] RX: Diphenhydramine HCl [Ez Nite Sleep] 50 mg PO HS 08/14/18 [History] RX: Furosemide [Lasix] 40 mg PO DAILY 08/14/18 [History] RX: Irbesartan [Avapro] 150 mg PO DAILY 08/14/18 [History] RX: Metoprolol Tartrate [Lopressor] 50 mg PO BID 08/14/18 [History] RX: Multivitamin [One Daily Multivitamin] 1 each PO DAILY 08/14/18 [History] RX: Potassium Chloride [K-Tab ER] 20 meq PO DAILY 08/14/18 [History] RX: Sennosides/Docusate Sodium [Senna-S Tablet] 2 tab PO QPM 08/14/18 [History] RX: Warfarin [Coumadin] 2.5 mg PO DAILY 08/14/18 [History] Gabapentin [Neurontin] 100 mg PO BID 09/27/18 [History] Calcium Carbonate/Vitamin D3 [Calcium 500 + Vit D Caplet] 1 tab PO BID 09/28/18 [History] Allergy/AdvReac Type Severity Reaction Status Date / Time amlodipine Allergy Swelling Verified 09/28/18 12:15 of Lip/Tongue/Throat clarithromycin Allergy Hives Verified 09/28/18 12:15 methyldopa Allergy Hives Verified 09/28/18 12:15 [place] Inhibitors AdvReac Hypotension Verified 09/28/18 12:15 aspirin [ASA] AdvReac See Verified 09/28/18 12:15 Comments atenolol AdvReac Palpitation Verified 09/28/18 12:15 s cefdinir AdvReac Dizziness Verified 09/28/18 12:15 duloxetine AdvReac See Verified 09/28/18 12:15 Comments enalapril AdvReac Hypotension Verified 09/28/18 12:15 guaifenesin AdvReac Hives Verified 09/28/18 12:15 indapamide AdvReac Hives Verified 09/28/18 12:15 losartan AdvReac Itching Verified 09/28/18 12:15 nifedipine AdvReac Hives Verified 09/28/18 12:15 NSAIDS (Non-Steroidal AdvReac See Verified 09/28/18 12:15 Anti-Inflamma Comments pregabalin [From Lyrica] AdvReac See Verified 09/28/18 12:15 Comments tramadol AdvReac See Verified 09/28/18 12:15 Comments Triamterene AdvReac Chills Verified 09/28/18 12:15 All Systems Review: The remainder of the systems were reviewed and are negative Rheumatology Exam Vital Signs, Last 4 Hours Temp Pulse Resp BP Pulse Ox 09/30/18 10:58 98.6 F 91 16 104/72 95 Exam: Constitutional: no acute distress, temp 98.6, HR 91, BP 104/72, Eyes: no scleral injection, PERRLA Respiratory: no accessory muscle use, lungs clear to auscultation bilaterally Cardiovascular: irregular rhythm, no murmurs, +2 pedal pulses bilaterally Abdomen: non-tender, no hepatosplenomegaly noted Musculoskeletal: base of left thumb edematous and erythematous, non-pitting edema in ankles bilaterally, no cyanosis in LE Skin: no rashes noted, no skin tightening noted Neurologic: CN II-XII intact, intact sensation to touch in bilateral LE and UE Psychiatric: good insight to condition, A&O x3, normal affect Rheumatology Results 09/30/18 04:20 09/30/18 04:20 All other labs normal. Consult Discharge Plan - Plan Referrals: NONE,PCP [Primary Care Provider] - <Oscar Chanel - Last Filed: 09/30/18 16:49> Date of Encounter: 09/30/18 Rheumatology HPI History of present illness: Ms. Irene is a 77 year old female All Systems Review: The remainder of the systems were reviewed and are negative Rheumatology Exam Vital Signs, Last 4 Hours Temp Pulse Resp BP Pulse Ox 09/30/18 16:10 99.1 F 100 18 128/82 97 Rheumatology Results 09/30/18 04:20 09/30/18 04:20 All other labs normal. - Attending Attestation I examined this patient and my medical decision making was reviewed with the resident physician. I agree with the documented findings, disposition and treatment as described with these exceptions. Mary is a 77-year-old female with PMH of atrial fibrillation, HTN, HLD, CKD 3, gout who presents to the hospitalized with weakness and joint pain. Treated for UTI. Has had leukocytosis, thrombocytosis. CKD stage 3. Exam - Left 1st IP synovitis and tenderness. Right knee effusion. Tenderness to ankles. Inflammatory arthritis - Mary's case is somewhat complicated as she has an oligoarthritis in the setting of hyperuricemia and a moderately elevated CCP. Clinically, I cannot say her symptoms are classic for rheumatoid arthritis, but it is possible she is having an evolving RA. Given her hyperuricemia and the new and sudden onset of her left 1st digit arthritis, this could very well be an acute gout attack. I have attempted to aspirate her right knee before without success of fluid. - I think at this time, I would try to treat for presumed gouty arthritis as this episodic swelling may be more the case. She has had hesitancy at using prednisone but was agreeable to using a short course. Recommend prednisone 40 mg x 1 dose, then 20 mg daily x 5 days. - I think we should take the opportunity to start her on allopurinol since she will be in a controlled setting. Would start allopurinol 100 mg 1/2 tablets daily (50 mg). I think as long as we start this with prednisone we should be ok. If she has a flare, then she may have to repeat the prednisone burst as above if she goes to a facility. - In regards to the possibility of rheumatoid arthritis, this could be an evolving case, but given her CKD I really do not have DMARDS to start and closely monitor so her diagnosis may have to be more clear before committing her to treatment. - Will see her tomorrow and follow.
--- NOTE | 2018-09-30 16:21 | Electrocardiograph Report ---
[address] [address] Test Date: 2018-09-27 Pat Name: Mary Irene Department: EXAM2 Room: 2A Gender: F Financial Systems Analyst: : 1940 Requested By: Caitlin Cuevas Order Number: [id number] Reading MD: Marnie Duncan Measurements Intervals [place] Rate: 127 P: DE: QRS: 10 QRSD: 99 T: 33 QT: 308 QTc: 448 Interpretive Statements Atrial fibrillation with rapid ventricular response Borderline T wave abnormalities Electronically Signed On 09-30-2018 16:19:27 EST by Marnie Duncan
[2018-09-30] MEDS ORDERED: *HR* Warfarin 2.5 MG TABLET PO ONE (18:00)
[2018-09-30] MEDS ORDERED: predniSONE 20 MG TABLET PO ONE (19:35)
[2018-09-30] MEDS: Sennosides/Docusate Sodium TABLET PO SCH (20:16)
[2018-10-01 05:55] LABS: Basophils % 0.1 %; Eosinophils % 0.1 %; Hematocrit 32.2 % (35.3-44.9); Hemoglobin 9.8 g/dL (11.5-15.4); Immature Granulocytes % 0.5 % (0-4); Lymphocytes # 1.2 K/mcL (0.6-4.6); Lymphocytes % 8.6 %; Mean Corpuscular HGB Conc 30.4 g/dL (31.6-35.5); Mean Corpuscular Hemoglobin 26.1 pg (28.0-33.3); Mean Corpuscular Volume 85.9 fL (83.0-100.0); Mean Platelet Volume 10.4 fL (9.4-12.4); Monocytes # 0.2 K/mcL (0.0-1.3); Monocytes % 1.1 %; Neutrophils # 12.4 K/mcL (1.6-8.9); Platelet Count 438 K/mcL (140-400); Red Blood Count 3.75 M/mcL (3.82-4.97); Red Cell Distribution Width 14.5 % (11.5-14.5); Segmented Neutrophils % 89.6 %
[2018-10-01 06:05] LABS: INR 2.9; Prothrombin Time 32.6 Seconds (9.4-12.1)
[2018-10-01 06:18] LABS: Calcium 9.1 mg/dL (8.6-10.3); Potassium 4.4 mEq/L (3.5-5.1)
[2018-10-01] MEDS ORDERED: cefTRIAXone 1,000 MG in Water for inj. (sterile) 20 ML 10 ML IVP SCH (09:00)
[2018-10-01] MEDS ORDERED: predniSONE 20 MG TABLET PO SCH (09:00)
[2018-10-01] MEDS: Furosemide 40 MG TABLET PO SCH (09:33)
[2018-10-01] MEDS: Cholecalciferol (D-3) 1,000 UNIT TABLET PO SCH (09:33)
[2018-10-01] MEDS: Multivit/Ca/Min/Fe/FA 1 TAB TABLET PO SCH (09:34)
[2018-10-01] MEDS: Gabapentin 100 MG CAPSULE PO SCH (09:34)
[2018-10-01] MEDS: Sennosides/Docusate Sodium TABLET PO SCH (09:34)
--- NOTE | 2018-10-01 10:13 | Rheumatology Progress Note ---
<Nate Moraes S - Last Filed: 10/01/18 10:11> Date of Encounter: 10/01/18 Time of Encounter: 09:15 Rheumatology Assess and Plan (1) Inflammatory arthritis Current Visit: Yes Status: Acute Possibly due to gout attack vs rheumatoid arthritis Patient had hyperuricemia of 9.6 during last admission (Aug 2018) Repeat uric acid is 9.3 Anti-CCP elevated to 55 during last admission (Aug 2018) Will start allopurinol 50 mg daily (patient on coumadin with INR of 2.5) Will start short course of prednisone Patient likely going to rehab facility for PT/OT, may need another prednisone burst in case of a flare while on allopurinol Will sign off now and follow as outpatient in 4 weeks, thank you for the consult (2) Hyperuricemia Current Visit: Yes Status: Acute Had uric acid of 9.6 during last admission (Aug 2018) Repeat uric acid of 9.3 Will start patient on allopurinol and a short course of steroids to prevent flares caused by allopurinol Follow up as outpatient in 4 weeks (3) Cyclic citrullinated peptide (CCP) antibody positive Current Visit: Yes Status: Acute Patient with elevated anti-CCP on last admission (Aug 2018) (4) CKD (chronic kidney disease) Current Visit: Yes Status: Acute Management per primary team Patient's Cr 1.37, down from 1.41 on admission Qualifiers: Chronic kidney disease stage: stage 3 (moderate) Qualified Code(s): N18.3 - Chronic kidney disease, stage 3 (moderate) - Subjective Interval history: Patient doing better this morning. She was started on prednisone yesterday. She states her left thumb, ankle, right knee, and left shoulder pain are all much improved. She denies chest pain, SOB, abdominal pain, nausea, vomiting, changes in bowel/bladder habits. Exam Vital Signs, Last 4 Hours Temp Pulse Resp BP Pulse Ox 10/01/18 09:24 94 10/01/18 07:33 97.5 F L 97 16 133/78 94 Exam: Constitutional: no acute distress, temp 97.5, HR 97, BP 133/78 Eyes: no scleral injection, PERRLA Respiratory: no accessory muscle use, lungs clear to auscultation bilaterally Cardiovascular: irregular rhythm, no murmurs, +2 pedal pulses bilaterally Abdomen: non-tender, no hepatosplenomegaly noted Musculoskeletal: base of left thumb is less edematous and erythematous today, non-pitting edema in ankles bilaterally, range of motion slightly improved in right knee joint, range of motion slightly improved in left shoulder joint Skin: no rashes noted, no skin tightening noted Neurologic: CN II-XII intact, intact sensation to touch in bilateral LE and UE Psychiatric: good insight to condition, A&O x3, normal affect Objective Data 10/01/18 05:36 10/01/18 05:36 All other labs normal. Consult Discharge Plan - Plan Referrals: NONE,PCP [Primary Care Provider] - (Patient will follow up with PCP at [facility]) Prescriptions: Allopurinol [Zyloprim 100 MG] 50 mg PO DAILY 30 Days #30 tablet <Oscar Chanel - Last Filed: 10/01/18 12:53> Date of Encounter: 10/01/18 Exam Vital Signs, Last 4 Hours Temp Pulse Resp BP Pulse Ox 10/01/18 11:45 97.6 F 83 18 98/61 97 10/01/18 09:24 94 Objective Data 10/01/18 05:36 10/01/18 05:36 All other labs normal. - Attending Attestation I examined this patient and my medical decision making was reviewed with the resident physician. I agree with the documented findings, disposition and treatment as described with these exceptions. Yesterday had prednisone 40 mg x 1 dose. Reports good response to ankles and left 1st IP. Inflammatory arthritis - At this time with the hyperuricemia, I still suspect that this may be gout. She has had a good response to prednisone. I would recommend starting allopurinol 50 mg now. If she has flares, she should have a prescription for prednisone 40 mg daily x 1 then 20 mg daily x 5 days. I will see her in 3-4 weeks in our clinic. Will sign off.
--- NOTE | 2018-10-01 11:37 | Discharge Summary ---
- NOTES TO OUTPATIENT PROVIDER Notes to Outpatient Provider: Patient needs Uric acid level, LFTs, BMP done in 3 weeks. Follow-up with agent telegrapher in 4 weeks. Make and appointment to see and OB&C++ PROFESSOR due to endometrial thickening. Orders not resulted at time of discharge: Pending orders 09/27/18 17:11 Culture,Blood [BC] Stat 10/02/18 04:00 PT/INR [Prothrombin Time INR] [COAG] AM 0400 10/03/18 04:00 PT/INR [Prothrombin Time INR] [COAG] AM 0400 10/04/18 04:00 PT/INR [Prothrombin Time INR] [COAG] AM 0400 10/05/18 04:00 PT/INR [Prothrombin Time INR] [COAG] AM 0400 Date of Encounter: 10/01/18 Time of Encounter: 11:32 - Discharge Diagnosis (1) Rheumatoid arthritis Priority: Primary Status: Acute Qualifiers: Rheumatoid arthritis location: hand Laterality: left Qualified Code(s): M06.9 - Rheumatoid arthritis, unspecified (2) Generalized weakness Priority: Primary Status: Resolved (3) Atrial fibrillation Priority: Primary Status: Chronic Qualifiers: Atrial fibrillation type: paroxysmal Qualified Code(s): I48.0 - Paroxysmal atrial fibrillation (4) HTN (hypertension) Priority: Primary Status: Chronic Qualifiers: Hypertension type: essential hypertension Qualified Code(s): I10 - Essential (primary) hypertension (5) DVT prophylaxis Priority: Primary Status: Acute (6) CKD (chronic kidney disease) stage 3, GFR 30-59 ml/min Priority: Primary Status: Chronic (7) UTI (urinary tract infection) Priority: Primary Status: Resolved Qualifiers: Urinary tract infection type: acute cystitis Hematuria presence: without hematuria Qualified Code(s): N30.00 - Acute cystitis without hematuria (8) Sepsis Priority: Primary Status: Resolved Qualifiers: Sepsis type: sepsis due to unspecified organism Qualified Code(s): A41.9 - Sepsis, unspecified organism (9) Generalized edema Priority: Primary Status: Resolved (10) Lesion of endometrium Priority: Secondary Status: Chronic (11) Leukocytosis Priority: Secondary Status: Acute Qualifiers: Leukocytosis type: leukemoid reaction Qualified Code(s): D72.823 - Leukemoid reaction Hospital course: Ms. Irene is a 77 year old female past medical history of hypertension, atrial fibrillation on Coumadin, chronic kidney disease, anemia, history of spinal surgery who presents with generalized weakness. Patient admitted to the hospital due to UTI, Generalized weakness, hyperuricemia and rheumatoid arthritis flare. Patient treated with IV antibiotics. Rheumatology consulted and recommended to start the patient on a short course of prednisone, and he started allopurinol 50 mg by mouth daily. An incidental finding of possible endometrial hyperplasia was seen on the CT of the abdomen and pelvis for which a pelvic ultrasound was done: IMPRESSION: Endometrium is thickened measuring up to 1 cm which is considered abnormal in a postmenopausal female. Recommend direct visualization. 2.3 x 2.6 x 1.6 cm hyperechoic somewhat lobular lesion the posterior uterus. Findings may represent a fibroid however shape and echogenicity is somewhat unusual. Recommend further evaluation with MRI of the pelvis with contrast. Recommended to follow-up with OB&C++ PROFESSOR. Patient acute symptoms on presentation resolved. And patient is hemodynamically stable to be discharged to SNF/ECF. - Time Spent with Patient Total time spent providing and/or coordinating discharge services: Greater than 30 minutes (40) - Discharge Medications Prescriptions: Allopurinol [Zyloprim 100 MG] 50 mg PO DAILY 30 Days #30 tablet Home Medications: Atorvastatin Calcium [Lipitor] 20 mg PO DAILY 08/14/18 [History] Diphenhydramine HCl [Ez Nite Sleep] 50 mg PO HS 08/14/18 [History] Furosemide [Lasix] 40 mg PO DAILY 08/14/18 [History] Irbesartan [Avapro] 150 mg PO DAILY 08/14/18 [History] Metoprolol Tartrate [Lopressor] 50 mg PO BID 08/14/18 [History] Multivitamin [One Daily Multivitamin] 1 each PO DAILY 08/14/18 [History] Potassium Chloride [K-Tab ER] 20 meq PO DAILY 08/14/18 [History] Sennosides/Docusate Sodium [Senna-S Tablet] 2 tab PO QPM 08/14/18 [History] Warfarin [Coumadin] 2.5 mg PO DAILY 08/14/18 [History] Gabapentin [Neurontin] 100 mg PO BID 09/27/18 [History] Calcium Carbonate/Vitamin D3 [Calcium 500 + Vit D Caplet] 1 tab PO BID 09/28/18 [History] Allopurinol [Zyloprim 100 MG] 50 mg PO DAILY 30 Days #30 tablet 10/01/18 [Rx] Cholecalciferol (D-3) [Vitamin D] 1,000 unit PO DAILY tablet 10/01/18 [Rx] Allergies/Adverse Reactions: Allergy/AdvReac Type Severity Reaction Status Date / Time amlodipine Allergy Swelling Verified 09/28/18 12:15 of Lip/Tongue/Throat clarithromycin Allergy Hives Verified 09/28/18 12:15 methyldopa Allergy Hives Verified 09/28/18 12:15 [place] Inhibitors AdvReac Hypotension Verified 09/28/18 12:15 aspirin [ASA] AdvReac See Verified 09/28/18 12:15 Comments atenolol AdvReac Palpitation Verified 09/28/18 12:15 s cefdinir AdvReac Dizziness Verified 09/28/18 12:15 duloxetine AdvReac See Verified 09/28/18 12:15 Comments enalapril AdvReac Hypotension Verified 09/28/18 12:15 guaifenesin AdvReac Hives Verified 09/28/18 12:15 indapamide AdvReac Hives Verified 09/28/18 12:15 losartan AdvReac Itching Verified 09/28/18 12:15 nifedipine AdvReac Hives Verified 09/28/18 12:15 NSAIDS (Non-Steroidal AdvReac See Verified 09/28/18 12:15 Anti-Inflamma Comments pregabalin [From Lyrica] AdvReac See Verified 09/28/18 12:15 Comments tramadol AdvReac See Verified 09/28/18 12:15 Comments Triamterene AdvReac Chills Verified 09/28/18 12:15 Date of admission: 09/28/18 13:19 Primary care physician: PCP NONE Consults: 09/27/18 22:43 PT [Consult to Physical Therapy] [CONS] Routine Comment: Evaluate, develop and implement POC Reason for Consult: Generalized weakness worse than baseline. Patient recently hospitalized; wheel chair bound previously able to transition; now requiring assistance Does patient have active BEDREST order?: No Is patient medically & hemodynamically stable?: No Patient assessed for mobility or mobilized this visit?: No 09/28/18 09:30 Consult to Occupational Therapy [CONS] Routine Comment: Evaluate, develop and implement POC Reason for Consult: weakness Does patient have active BEDREST order?: No Is patient medically & hemodynamically stable?: Yes Consult to Lay Brother [CONS] Routine Reason for SW Consult: need placement 09/30/18 11:38 Consult to Rheumatology [CONS] Routine Consulting Provider: Oscar Chanel Reason for Consult: RA, whole body joint pain, anti-ccp positive Call Completed: Yes - Constitutional Vitals: Temp Pulse Resp BP Pulse Ox 97.5 F L 97 16 133/78 94 10/01/18 07:33 10/01/18 07:33 10/01/18 07:33 10/01/18 07:33 10/01/18 09:24 Exam: Vitals: Reviewed. General: Alert and oriented x4. In no acute distress. Skin: Normal color, no rash, no lesions. HEENT: EOM, pupils equal, round and reactive. Cardiovascular: RRR, Normal S1 & S2, no rubs, murmurs or gallops. Lungs: Clear to auscultation bilaterally, no wheezes or crackles. Abdomen: Soft, non-tender, no rigidity. Extremities: No deformity, no edema or tenderness, no joint swelling or clubbing. Neurological: Normal cognition and motor skills. Rest of the physical exam is non contributory - Patient Status Disposition: Transfer SNF Condition: Good Functional capacity at discharge: uses cane/walker Overall status at discharge: patient is progressing back to baseline - Discharge Instructions Follow Up With: NONE,PCP [Primary Care Provider] - (Patient will follow up with PCP at [facility]) - Diet and Activity Activity: as per physical therapy Diet: low salt diet
[2018-10-01 11:48] VITALS: BP 98/61
--- NOTE | 2018-10-01 11:54 | Physician Discharge Referral ---
ExtendedCare Referral Info Transfer To: SNF/ECF - Diagnosis (1) Rheumatoid arthritis Priority: Primary Status: Acute (2) Generalized weakness Priority: Secondary Status: Resolved (3) Atrial fibrillation Priority: Secondary Status: Chronic (4) HTN (hypertension) Priority: Secondary Status: Chronic (5) DVT prophylaxis Priority: Secondary Status: Acute (6) CKD (chronic kidney disease) stage 3, GFR 30-59 ml/min Priority: Secondary Status: Chronic (7) UTI (urinary tract infection) Priority: Secondary Status: Resolved (8) Sepsis Priority: Secondary Status: Resolved (9) Generalized edema Status: Resolved (10) Lesion of endometrium Priority: Secondary Status: Chronic (11) Leukocytosis Priority: Secondary Status: Acute - Transfer Medications Prescriptions: Allopurinol [Zyloprim 100 MG] 50 mg PO DAILY 30 Days #30 tablet Home Medications: Atorvastatin Calcium [Lipitor] 20 mg PO DAILY 08/14/18 [History] Diphenhydramine HCl [Ez Nite Sleep] 50 mg PO HS 08/14/18 [History] Furosemide [Lasix] 40 mg PO DAILY 08/14/18 [History] Irbesartan [Avapro] 150 mg PO DAILY 08/14/18 [History] Metoprolol Tartrate [Lopressor] 50 mg PO BID 08/14/18 [History] Multivitamin [One Daily Multivitamin] 1 each PO DAILY 08/14/18 [History] Potassium Chloride [K-Tab ER] 20 meq PO DAILY 08/14/18 [History] Sennosides/Docusate Sodium [Senna-S Tablet] 2 tab PO QPM 08/14/18 [History] Warfarin [Coumadin] 2.5 mg PO DAILY 08/14/18 [History] Gabapentin [Neurontin] 100 mg PO BID 09/27/18 [History] Calcium Carbonate/Vitamin D3 [Calcium 500 + Vit D Caplet] 1 tab PO BID 09/28/18 [History] Allopurinol [Zyloprim 100 MG] 50 mg PO DAILY 30 Days #30 tablet 10/01/18 [Rx] Cholecalciferol (D-3) [Vitamin D] 1,000 unit PO DAILY tablet 10/01/18 [Rx] Allergies/Adverse Reactions: Allergy/AdvReac Type Severity Reaction Status Date / Time amlodipine Allergy Swelling Verified 09/28/18 12:15 of Lip/Tongue/Throat clarithromycin Allergy Hives Verified 09/28/18 12:15 methyldopa Allergy Hives Verified 09/28/18 12:15 [place] Inhibitors AdvReac Hypotension Verified 09/28/18 12:15 aspirin [ASA] AdvReac See Verified 09/28/18 12:15 Comments atenolol AdvReac Palpitation Verified 09/28/18 12:15 s cefdinir AdvReac Dizziness Verified 09/28/18 12:15 duloxetine AdvReac See Verified 09/28/18 12:15 Comments enalapril AdvReac Hypotension Verified 09/28/18 12:15 guaifenesin AdvReac Hives Verified 09/28/18 12:15 indapamide AdvReac Hives Verified 09/28/18 12:15 losartan AdvReac Itching Verified 09/28/18 12:15 nifedipine AdvReac Hives Verified 09/28/18 12:15 NSAIDS (Non-Steroidal AdvReac See Verified 09/28/18 12:15 Anti-Inflamma Comments pregabalin [From Lyrica] AdvReac See Verified 09/28/18 12:15 Comments tramadol AdvReac See Verified 09/28/18 12:15 Comments Triamterene AdvReac Chills Verified 09/28/18 12:15 - Respiratory Orders None Smoking Cessation: Smoking cessation has been advised. For more information, call the [place] Tobacco Quit Line at 7-610-CPHE-NOW. - Advance Directives Code Status: Full Code - Mobility Orders Ambulate - Rehabiliation Orders Rehab Potential: Fair - Diet Orders Regular CERTIFICATION: I certify that the transfer of the above named patient to an Extended Care Facility is necessary for the continuing treatment of the diagnosis listed. The above information is true and accurate reflection of patient's current condition. Confidential - Redisclosure prohibited without a patient's written consent.
[2018-10-01] MEDS ORDERED: *HR* Warfarin 2.5 MG TABLET PO ONE (18:00)
== END 2018-10-01 16:00 | DRG 872 ==
LOC: EMEROOARM 16:02 → 2ANU 16:02 → SUATTDRO 09-28 13:19
PROVIDERS: ADMIT Hospitalist; ATTEND Internal Medicine

== ENCOUNTER 2019-11-25 14:07 | Observation (INO) ==
[2019-11-25] MEDS ORDERED: Isovue-370 500 ML BOTTLE IVP ONE (15:48)
[2019-11-25] MEDS ORDERED: 0.9 % Sodium Chloride 1,000 ML IVC ONE (15:49)
[2019-11-25 16:00] LABS: Basophils # 0.1 K/mcL (0.0-0.2); Basophils % 0.8 %; Eosinophils # 0.1 K/mcL (0.0-0.6); Eosinophils % 0.8 %; Hematocrit 39.9 % (35.3-44.9); Hemoglobin 12.7 g/dL (11.5-15.4); Immature Granulocytes % 0.1 % (0-4); Lymphocytes # 2.3 K/mcL (0.6-4.6); Lymphocytes % 26.7 %; Mean Corpuscular HGB Conc 31.8 g/dL (31.6-35.5); Mean Corpuscular Volume 87.9 fL (83.0-100.0); Mean Platelet Volume 11.5 fL (9.4-12.4); Monocytes # 0.5 K/mcL (0.0-1.3); Monocytes % 5.3 %; Neutrophils # 5.7 K/mcL (1.6-8.9); Platelet Count 232 K/mcL (140-400); Red Blood Count 4.54 M/mcL (3.82-4.97); Red Cell Distribution Width 15.8 % (11.5-14.5); Segmented Neutrophils % 66.3 %; White Blood Count 8.6 K/mcL (4.3-11.1)
[2019-11-25 16:18] LABS: Calcium 9.1 mg/dL (8.6-10.3); Potassium 3.6 mEq/L (3.5-5.1)
[2019-11-25 17:10] LABS: INR 2.2; Prothrombin Time 25.4 Seconds (9.4-12.1)
[2019-11-25] MEDS ORDERED: cefTRIAXone 1,000 MG in Water for inj. (sterile) 10 ML IVP ONE (17:55)
[2019-11-25] MEDS ORDERED: Nystatin POWDER 30 GM BOTTLE TP ONE (18:00)
[2019-11-25] MEDS ORDERED: Fluconazole 100 MG TABLET PO SCH (18:15)
[2019-11-25] MEDS ORDERED: Naloxone 0.4 MG/ML INJ IVP PRN (20:08)
[2019-11-25] MEDS ORDERED: 0.9 % Sodium Chloride 1,000 ML IVC SCH (20:15)
[2019-11-25] MEDS ORDERED: Fluconazole 100 MG TABLET PO ONE (20:31)
[2019-11-25] MEDS: Nystatin POWDER 30 GM BOTTLE TP SCH (22:09)
[2019-11-26 02:23] LABS: Hematocrit 36.6 % (35.3-44.9); Mean Corpuscular HGB Conc 30.3 g/dL (31.6-35.5); Mean Corpuscular Hemoglobin 27.6 pg (28.0-33.3); Mean Platelet Volume 11.7 fL (9.4-12.4); Platelet Count 209 K/mcL (140-400); Red Blood Count 4.02 M/mcL (3.82-4.97); Red Cell Distribution Width 15.7 % (11.5-14.5); White Blood Count 8.7 K/mcL (4.3-11.1)
[2019-11-26 02:24] LABS: Hemoglobin 11.1 g/dL (11.5-15.4)
[2019-11-26 02:29] LABS: INR 2.1; Prothrombin Time 24.3 Seconds (9.4-12.1)
[2019-11-26 02:44] LABS: Albumin 3.3 g/dL (3.5-5.7); Albumin/Globulin Ratio 1.4 (1.1-2.2); Bilirubin,Total 0.3 mg/dL (0.3-1.0); Calcium 8.5 mg/dL (8.6-10.3); Globulin 2.4 g/dL (2.4-3.5); Potassium 3.5 mEq/L (3.5-5.1); Total Protein 5.7 g/dL (6.4-8.9)
[2019-11-26] MEDS ORDERED: *HR* Heparin 5,000 UNIT/ML VIAL SQ SCH (06:00)
[2019-11-26 07:06] VITALS: BP 119/57
[2019-11-26] MEDS ORDERED: Furosemide 40 MG TABLET PO SCH (09:00)
[2019-11-26] MEDS ORDERED: cefTRIAXone 1,000 MG in 0.9 % Sodium Chloride Mini Bag 100 ML IVPB SCH (09:00)
[2019-11-26] MEDS ORDERED: Gabapentin 100 MG CAPSULE PO SCH (09:00)
[2019-11-26] MEDS ORDERED: Fluconazole 100 MG TABLET PO SCH (09:00)
[2019-11-26] MEDS: Nystatin POWDER 30 GM BOTTLE TP SCH (10:19)
[2019-11-26] MEDS ORDERED: Sulfamethoxazole/Trimeth SS 1 TAB PO SCH (10:47)
[2019-11-26 12:44] LABS: Estimated Average Glucose 120 mg/dl
[2019-11-26] MEDS ORDERED: cefTRIAXone 1,000 MG in Water for inj. (sterile) 10 ML IVPB SCH (18:00)
[2019-11-26] MEDS ORDERED: Warfarin perPT PO PRN ×3 (18:00)
[2019-11-26] MEDS ORDERED: *HR* Warfarin 2 MG TABLET PO ONE (18:00)
== END 2019-11-26 14:57 | disposition home or self-care (01) ==
LOC: EMEROOARM 14:07 → 2ANU 14:07 → SUATTDRO 20:08 → 2ANU 21:00
PROVIDERS: ADMIT Family Medicine; ATTEND Internal Medicine

== ENCOUNTER 2022-04-20 11:05 | Inpatient (IN) ==
[2022-04-20 12:15] LABS: Basophils # 0.1 K/mcL (0.0-0.2); Basophils % 0.2 %; Eosinophils # 0.1 K/mcL (0.0-0.6); Eosinophils % 0.5 %; Hematocrit 33.4 % (35.3-44.9); Hemoglobin 10.6 g/dL (11.5-15.4); Immature Granulocytes % 0.6 % (0-4); Lymphocytes # 0.9 K/mcL (0.6-4.6); Mean Corpuscular HGB Conc 31.7 g/dL (31.6-35.5); Mean Corpuscular Hemoglobin 29.2 pg (28.0-33.3); Mean Platelet Volume 10.7 fL (9.4-12.4); Monocytes # 0.8 K/mcL (0.0-1.3); Monocytes % 3.9 %; Neutrophils # 19.8 K/mcL (1.6-8.9); Platelet Count 247 K/mcL (140-400); Red Blood Count 3.63 M/mcL (3.82-4.97); Red Cell Distribution Width 15.7 % (11.5-14.5); Segmented Neutrophils % 90.8 %; White Blood Count 21.8 K/mcL (4.3-11.1)
[2022-04-20] MEDS ORDERED: Ringers Solution, Lactated 1,000 ML IVC ONE (12:28)
[2022-04-20 12:41] LABS: Albumin 3.6 g/dL (3.5-5.7); Albumin/Globulin Ratio 1.1 (1.1-2.2); Bilirubin,Total 0.8 mg/dL (0.3-1.0); Calcium 8.9 mg/dL (8.6-10.3); Globulin 3.2 g/dL (2.4-3.5); Potassium 3.6 mEq/L (3.5-5.1); Total Protein 6.8 g/dL (6.4-8.9); Troponin I 0.03 ng/mL (< 0.04)
[2022-04-20] MEDS ORDERED: Iopamidol - 370 500 ML MLS IVP ONE (12:49)
[2022-04-20 12:57] LABS: INR 1.5; Prothrombin Time 17.1 Seconds (9.4-12.1)
[2022-04-20] MEDS ORDERED: cefTRIAXone 2,000 MG in 0.9 % Sodium Chloride 20 ML IVP ONE (13:04)
[2022-04-20 14:01] LABS: Bilirubin,Urine Negative (Negative); Blood,Urine Negative (Negative); Clarity,Urine Clear (Clear); Color,Urine Light-Yellow (Yellow); Glucose,Urine (UA) Normal (Normal); Ketones,Urine Negative (Negative); Leukocyte Esterase,Urine Negative (Negative); Nitrite,Urine Negative (Negative); PH,Urine 5.5 pH Units (5.0-8.0); Protein,Urine Negative (Neg-Trace); Specific Gravity,Urine 1.013 (1.010-1.025); Urobilinogen,Urine Normal (Normal)
[2022-04-20] MEDS ORDERED: Vancomycin 1,750 MG/517.5 ML IV.SOLN IVPB ONE (15:00)
[2022-04-20 15:44] LABS: Influenza A PCR Negative (Negative); Influenza B PCR Negative (Negative); Resp. Syncytial Virus PCR Negative (Negative)
[2022-04-20 15:45] LABS: SARS-CoV-2 by PCR (In House) Negative (Negative)
[2022-04-20] MEDS ORDERED: Ondansetron ODT 4 MG TAB.RAPDIS SL PRN (16:43)
[2022-04-20] MEDS ORDERED: Acetaminophen 325 MG TABLET PO PRN (16:43)
[2022-04-20] MEDS ORDERED: Naloxone 0.4 MG/ML INJ IVP PRN (16:43)
[2022-04-20] MEDS: Azithromycin 500 MG in 0.9 % Sodium Chloride 250 ML IVPB SCH (17:57)
[2022-04-20] MEDS: Ringers Solution, Lactated 1,000 ML IVC SCH (19:11)
[2022-04-21 02:58] LABS: Basophils % 0.4 %; Eosinophils # 0.5 K/mcL (0.0-0.6); Eosinophils % 5.3 %; Hematocrit 27.1 % (35.3-44.9); Immature Granulocytes % 0.3 % (0-4); Lymphocytes # 1.5 K/mcL (0.6-4.6); Lymphocytes % 15.3 %; Mean Corpuscular HGB Conc 30.6 g/dL (31.6-35.5); Mean Corpuscular Hemoglobin 28.2 pg (28.0-33.3); Mean Corpuscular Volume 92.2 fL (83.0-100.0); Mean Platelet Volume 11.2 fL (9.4-12.4); Monocytes # 0.5 K/mcL (0.0-1.3); Platelet Count 188 K/mcL (140-400); Red Blood Count 2.94 M/mcL (3.82-4.97); Red Cell Distribution Width 15.5 % (11.5-14.5); Segmented Neutrophils % 73.7 %
[2022-04-21 03:00] LABS: Neutrophils # 7.2 K/mcL (1.6-8.9); White Blood Count 9.8 K/mcL (4.3-11.1)
[2022-04-21 03:01] LABS: Hemoglobin 8.3 g/dL (11.5-15.4); INR 1.4
[2022-04-21 03:18] LABS: Albumin 2.8 g/dL (3.5-5.7); Albumin/Globulin Ratio 1.1 (1.1-2.2); Bilirubin,Total 0.5 mg/dL (0.3-1.0); Calcium 8.1 mg/dL (8.6-10.3); Chol/HDL Ratio 2.4 (0-4.9); Globulin 2.6 g/dL (2.4-3.5); Magnesium 1.7 mg/dL (1.6-2.6); Phosphorous 3.3 mg/dL (2.7-4.5); Potassium 3.8 mEq/L (3.5-5.1); Total Protein 5.4 g/dL (6.4-8.9)
[2022-04-21] MEDS: Ringers Solution, Lactated 1,000 ML IVC SCH (06:22)
[2022-04-21] MEDS: *HR* OxyCODONE Immed Rel 5 MG TABLET PO PRN (08:00)
[2022-04-21] MEDS: cefTRIAXone 1,000 MG in 0.9 % Sodium Chloride 10 ML IVP SCH (08:00)
[2022-04-21] MEDS ORDERED: Melatonin 3 MG TABLET PO PRN (12:29)
[2022-04-21] MEDS ORDERED: *HR* Warfarin 2 MG TABLET PO SCH (12:30)
[2022-04-21] MEDS: Cholecalciferol (D-3) 1,000 UNIT (25MCG) TABLET PO SCH (13:36)
[2022-04-21] MEDS: Furosemide 40 MG TABLET PO SCH (13:36)
[2022-04-21] MEDS: *HR* Enoxaparin 100 MG/ML SYRINGE SQ SCH (17:25)
[2022-04-21] MEDS: Azithromycin 500 MG in 0.9 % Sodium Chloride 250 ML IVPB SCH (17:26)
[2022-04-21] MEDS ORDERED: *HR* Warfarin 1 MG TABLET PO ONE (18:00)
[2022-04-21] MEDS ORDERED: Warfarin perPT PO PRN (18:00)
[2022-04-21] MEDS ORDERED: Prochlorperazine 10 MG/2 ML VIAL IVP ONE (20:41)
[2022-04-22 03:11] LABS: Basophils % 0.4 %; Eosinophils # 0.4 K/mcL (0.0-0.6); Eosinophils % 4.7 %; Hematocrit 27.2 % (35.3-44.9); Hemoglobin 8.2 g/dL (11.5-15.4); Immature Granulocytes % 0.2 % (0-4); Lymphocytes # 1.1 K/mcL (0.6-4.6); Lymphocytes % 13.9 %; Mean Corpuscular HGB Conc 30.1 g/dL (31.6-35.5); Mean Corpuscular Hemoglobin 28.2 pg (28.0-33.3); Mean Corpuscular Volume 93.5 fL (83.0-100.0); Mean Platelet Volume 11.3 fL (9.4-12.4); Monocytes # 0.4 K/mcL (0.0-1.3); Monocytes % 5.5 %; Neutrophils # 6.1 K/mcL (1.6-8.9); Platelet Count 197 K/mcL (140-400); Red Blood Count 2.91 M/mcL (3.82-4.97); Red Cell Distribution Width 15.2 % (11.5-14.5); Segmented Neutrophils % 75.3 %; White Blood Count 8.1 K/mcL (4.3-11.1)
[2022-04-22 03:19] LABS: INR 1.4; Prothrombin Time 15.8 Seconds (9.4-12.1)
[2022-04-22 03:30] LABS: Albumin 2.9 g/dL (3.5-5.7); Albumin/Globulin Ratio 1.1 (1.1-2.2); Bilirubin,Total 0.3 mg/dL (0.3-1.0); Calcium 8.3 mg/dL (8.6-10.3); Globulin 2.6 g/dL (2.4-3.5); Potassium 3.9 mEq/L (3.5-5.1); Total Protein 5.5 g/dL (6.4-8.9)
[2022-04-22] MEDS: *HR* Enoxaparin 100 MG/ML SYRINGE SQ SCH (05:31)
[2022-04-22] MEDS: Cholecalciferol (D-3) 1,000 UNIT (25MCG) TABLET PO SCH (08:03)
[2022-04-22] MEDS: allopurinoL 300 MG TABLET PO SCH (08:03)
[2022-04-22] MEDS: cefTRIAXone 1,000 MG in 0.9 % Sodium Chloride 10 ML IVP SCH (08:04)
[2022-04-22] MEDS: Furosemide 40 MG TABLET PO SCH (08:04)
[2022-04-22] MEDS ORDERED: Perflutren Lipid Microsphere 1.3 ML in 0.9 % Sodium Chloride 8.7 ML IVP PRN (08:32)
[2022-04-22] MEDS: Azithromycin 500 MG in 0.9 % Sodium Chloride 250 ML IVPB SCH (16:08)
[2022-04-22] MEDS ORDERED: *HR* Warfarin 2 MG TABLET PO ONE (18:00)
[2022-04-23 03:32] LABS: Basophils % 0.4 %; Eosinophils # 0.3 K/mcL (0.0-0.6); Eosinophils % 4.6 %; Hematocrit 27.7 % (35.3-44.9); Hemoglobin 8.4 g/dL (11.5-15.4); INR 1.6; Immature Granulocytes % 0.3 % (0-4); Lymphocytes # 1.5 K/mcL (0.6-4.6); Lymphocytes % 20.3 %; Mean Corpuscular HGB Conc 30.3 g/dL (31.6-35.5); Mean Corpuscular Hemoglobin 28.4 pg (28.0-33.3); Mean Corpuscular Volume 93.6 fL (83.0-100.0); Mean Platelet Volume 11.1 fL (9.4-12.4); Monocytes # 0.4 K/mcL (0.0-1.3); Monocytes % 5.9 %; Neutrophils # 5.1 K/mcL (1.6-8.9); Platelet Count 227 K/mcL (140-400); Prothrombin Time 17.8 Seconds (9.4-12.1); Red Blood Count 2.96 M/mcL (3.82-4.97); Segmented Neutrophils % 68.5 %; White Blood Count 7.5 K/mcL (4.3-11.1)
[2022-04-23 03:41] LABS: Albumin 2.9 g/dL (3.5-5.7); Albumin/Globulin Ratio 1.1 (1.1-2.2); Bilirubin,Total 0.3 mg/dL (0.3-1.0); Calcium 8.3 mg/dL (8.6-10.3); Globulin 2.7 g/dL (2.4-3.5); Potassium 4.1 mEq/L (3.5-5.1); Total Protein 5.6 g/dL (6.4-8.9)
[2022-04-23] MEDS ORDERED: *HR* Enoxaparin 100 MG/ML SYRINGE SQ SCH (06:00)
[2022-04-23] MEDS: Cholecalciferol (D-3) 1,000 UNIT (25MCG) TABLET PO SCH (08:31)
[2022-04-23] MEDS: Furosemide 40 MG TABLET PO SCH (08:31)
[2022-04-23] MEDS: cefTRIAXone 1,000 MG in 0.9 % Sodium Chloride 10 ML IVP SCH (08:31)
[2022-04-23] MEDS: allopurinoL 300 MG TABLET PO SCH (08:31)
[2022-04-23] MEDS ORDERED: *HR* Warfarin 2 MG TABLET PO SCH (12:29)
[2022-04-23] MEDS: Azithromycin 500 MG in 0.9 % Sodium Chloride 250 ML IVPB SCH (17:11)
[2022-04-23] MEDS ORDERED: *HR* Warfarin 3 MG TABLET PO ONE (18:00)
[2022-04-23] MEDS: *HR* OxyCODONE Immed Rel 5 MG TABLET PO PRN (20:06)
[2022-04-24 02:08] LABS: INR 1.6; Prothrombin Time 17.3 Seconds (9.4-12.1)
[2022-04-24] MEDS: *HR* OxyCODONE Immed Rel 5 MG TABLET PO PRN (03:20)
[2022-04-24] MEDS ORDERED: Furosemide 40 MG/4 ML VIAL IVP SCH (09:00)
[2022-04-24] MEDS: allopurinoL 300 MG TABLET PO SCH (09:33)
[2022-04-24] MEDS: Cholecalciferol (D-3) 1,000 UNIT (25MCG) TABLET PO SCH (09:34)
[2022-04-24] MEDS: cefTRIAXone 1,000 MG in 0.9 % Sodium Chloride 10 ML IVP SCH (09:47)
[2022-04-24] MEDS: Azithromycin 500 MG in 0.9 % Sodium Chloride 250 ML IVPB SCH (17:35)
[2022-04-24] MEDS ORDERED: *HR* Warfarin 3 MG TABLET PO ONE (18:00)
[2022-04-24 19:10] LABS: Basophils # 0.1 K/mcL (0.0-0.2); Basophils % 0.7 %; Eosinophils # 0.3 K/mcL (0.0-0.6); Eosinophils % 3.6 %; Hematocrit 29.7 % (35.3-44.9); Hemoglobin 8.9 g/dL (11.5-15.4); Immature Granulocytes % 0.3 % (0-4); Lymphocytes # 1.4 K/mcL (0.6-4.6); Lymphocytes % 19.1 %; Mean Corpuscular Volume 93.4 fL (83.0-100.0); Mean Platelet Volume 10.6 fL (9.4-12.4); Monocytes # 0.4 K/mcL (0.0-1.3); Monocytes % 5.5 %; Neutrophils # 5.2 K/mcL (1.6-8.9); Platelet Count 268 K/mcL (140-400); Red Blood Count 3.18 M/mcL (3.82-4.97); Red Cell Distribution Width 15.3 % (11.5-14.5); Segmented Neutrophils % 70.8 %; White Blood Count 7.3 K/mcL (4.3-11.1)
[2022-04-24 19:29] LABS: Bilirubin,Total 0.2 mg/dL (0.3-1.0); Calcium 8.6 mg/dL (8.6-10.3); Globulin 2.9 g/dL (2.4-3.5); Potassium 3.9 mEq/L (3.5-5.1); Total Protein 5.9 g/dL (6.4-8.9)
[2022-04-25 01:39] LABS: Basophils # 0.1 K/mcL (0.0-0.2); Basophils % 0.9 %; Eosinophils # 0.3 K/mcL (0.0-0.6); Eosinophils % 3.8 %; Hemoglobin 8.8 g/dL (11.5-15.4); Immature Granulocytes % 0.4 % (0-4); Lymphocytes % 24.6 %; Mean Corpuscular HGB Conc 30.3 g/dL (31.6-35.5); Mean Corpuscular Hemoglobin 28.6 pg (28.0-33.3); Mean Corpuscular Volume 94.2 fL (83.0-100.0); Mean Platelet Volume 10.8 fL (9.4-12.4); Monocytes # 0.6 K/mcL (0.0-1.3); Monocytes % 6.9 %; Neutrophils # 5.2 K/mcL (1.6-8.9); Platelet Count 250 K/mcL (140-400); Red Blood Count 3.08 M/mcL (3.82-4.97); Red Cell Distribution Width 15.3 % (11.5-14.5); Segmented Neutrophils % 63.4 %; White Blood Count 8.1 K/mcL (4.3-11.1)
[2022-04-25 01:53] LABS: Albumin 2.9 g/dL (3.5-5.7); Bilirubin,Total 0.2 mg/dL (0.3-1.0); Calcium 8.5 mg/dL (8.6-10.3); Globulin 2.9 g/dL (2.4-3.5); Potassium 4.2 mEq/L (3.5-5.1); Total Protein 5.8 g/dL (6.4-8.9)
[2022-04-25 01:54] LABS: INR 1.9; Prothrombin Time 21.6 Seconds (9.4-12.1)
[2022-04-25] MEDS: Cholecalciferol (D-3) 1,000 UNIT (25MCG) TABLET PO SCH (08:53)
[2022-04-25] MEDS: allopurinoL 300 MG TABLET PO SCH (08:53)
[2022-04-25] MEDS: cefTRIAXone 1,000 MG in 0.9 % Sodium Chloride 10 ML IVP SCH (09:32)
[2022-04-25] MEDS ORDERED: *HR* Warfarin 3 MG TABLET PO ONE (18:00)
[2022-04-26 06:01] LABS: Basophils # 0.1 K/mcL (0.0-0.2); Basophils % 0.9 %; Eosinophils # 0.3 K/mcL (0.0-0.6); Eosinophils % 2.8 %; Hematocrit 28.2 % (35.3-44.9); Hemoglobin 8.6 g/dL (11.5-15.4); Immature Granulocytes % 0.2 % (0-4); Lymphocytes # 2.1 K/mcL (0.6-4.6); Lymphocytes % 23.5 %; Mean Corpuscular HGB Conc 30.5 g/dL (31.6-35.5); Mean Corpuscular Hemoglobin 28.2 pg (28.0-33.3); Mean Corpuscular Volume 92.5 fL (83.0-100.0); Mean Platelet Volume 10.7 fL (9.4-12.4); Monocytes # 0.5 K/mcL (0.0-1.3); Monocytes % 5.7 %; Neutrophils # 5.9 K/mcL (1.6-8.9); Platelet Count 252 K/mcL (140-400); Red Blood Count 3.05 M/mcL (3.82-4.97); Red Cell Distribution Width 15.2 % (11.5-14.5); Segmented Neutrophils % 66.9 %; White Blood Count 8.8 K/mcL (4.3-11.1)
[2022-04-26 06:12] LABS: INR 2.1
[2022-04-26 06:20] LABS: Albumin/Globulin Ratio 1.2 (1.1-2.2); Bilirubin,Total 0.3 mg/dL (0.3-1.0); Calcium 8.8 mg/dL (8.6-10.3); Globulin 2.6 g/dL (2.4-3.5); Potassium 4.2 mEq/L (3.5-5.1); Total Protein 5.6 g/dL (6.4-8.9)
[2022-04-26] MEDS: Cholecalciferol (D-3) 1,000 UNIT (25MCG) TABLET PO SCH (10:00)
[2022-04-26] MEDS: allopurinoL 300 MG TABLET PO SCH (10:00)
[2022-04-26 13:08] VITALS: BP 116/76; PULSE 76; TEMP 98.1; O2SAT 99
[2022-04-26] MEDS ORDERED: *HR* Warfarin 2 MG TABLET PO ONE (18:00)
== END 2022-04-26 18:50 | disposition home health service (06) | DRG 871 ==
LOC: EMEROOARM 11:05 → 2ANU 11:05 → 3BNU 11:05 → SUATTDRO 15:43 → 2ANU 17:29
PROVIDERS: ADMIT Student in an Organized Health Care Education/Training Program; ATTEND Family Medicine